=== PATIENT | male | born 1955 | race Caucasian/White ===

== ENCOUNTER 2022-07-09 11:10 | Inpatient (IN) | payer BC, MEDICARE ==
[2022-07-09 11:30] LABS: Glucose,Whole Blood >600 mg/dL (70-110)
[2022-07-09] MEDS ORDERED: SODIUM CHLORIDE 0.9% 1,000 ML IV ONE ×2 (11:31→12:59)
[2022-07-09 11:55] LABS: Basophils % (A) 0 %; Eosinophils % (A) 0 %; HCT 47.1 % (39.0-53.0); HGB 14.9 gm/dL (13.0-17.5); Hypochromasia Slight; Lymphocytes # (A) 0.7 k/uL (1.0-4.8); Lymphocytes % (A) 4 %; MCH 30.8 pg (25.0-35.0); MCHC 31.6 g/dL (31.0-37.0); MCV 97.5 fL (80.0-100.0); Mean Platelet Volume 10.1; Monocytes # (A) 0.8 k/uL (0-1.0); Monocytes % (A) 5 %; Neutrophils # (A) 15.8 k/uL (1.3-7.7); Neutrophils % (A) 91 %; Platelet Count 255 k/uL (150-450); RBC 4.83 m/uL (4.30-5.90); RDW 14.5 % (11.5-15.5); WBC 17.5 k/uL (3.8-10.6)
[2022-07-09 12:18] LABS: ALT 25 U/L (4-49); African American GFR (CKD) 57 (>60 ml/min/1.73 sqM); Albumin 3.6 g/dL (3.5-5.0); Anion Gap 28 mmol/L; Blood Urea Nitrogen 43 mg/dL (9-20); Calcium 9.5 mg/dL (8.4-10.2); Chloride 89 mmol/L (98-107); Non-African American GFR(CKD) 49 (>60 ml/min/1.73 sqM); Sodium 125 mmol/L (137-145); Total Bilirubin 1.4 mg/dL (0.2-1.3); Total Protein 6.7 g/dL (6.3-8.2)
[2022-07-09 12:50] LABS: Carbon Dioxide 8 mmol/L (22-30); Glucose 754 mg/dL (74-99)
[2022-07-09 12:51] LABS: AST 29 U/L (17-59); Alkaline Phosphatase 136 U/L (38-126); Potassium 5.6 mmol/L (3.5-5.1)
[2022-07-09] MEDS ORDERED: VANCOMYCIN IV PER PHARMACY 1 EACH MISC MISCELLANE PRN (12:59)
[2022-07-09] MEDS: SODIUM CHLORIDE 0.9% 1,000 ML IV SCH ×3 (13:00→21:08)
--- NOTE | 2022-07-09 13:08 | ED ---
General Adult HPI - General Chief complaint: Skin/Abscess/Foreign Body Stated complaint: Bilateral feet infection Time Seen by Provider: 07/09/22 11:17 Source: patient, EMS, RN notes reviewed Mode of arrival: EMS Limitations: no limitations - History of Present Illness Initial comments: 67-year-old male presents emergency Department with chief complaint of bilateral foot and leg infection, redness. Patient states has been going on for several weeks increasing states that has had more increasing pain. The ambulance now at home. Patient states he moved here recently and does not have a current primary care physician has not been any medications. Patient states he does have a history of hypertension and diabetes. Patient states he noticed some drainage, sore throat been on his feet denies any known fever or chills no abdominal pain no chest pain or shortness breath. - Related Data Allergies Allergy/AdvReac Type Severity Reaction Status Date / Time No Known Allergies Allergy Verified 07/09/22 11:23 Review of Systems ROS Statement: Those systems with pertinent positive or pertinent negative responses have been documented in the HPI. ROS Other: All systems not noted in ROS Statement are negative. Past Medical History Past Medical History: Hypertension History of Any Multi-Drug Resistant Organisms: None Reported Past Surgical History: Orthopedic Surgery Additional Past Surgical History / Comment(s): hip replacement, cataracts Smoking Status: Never smoker Past Alcohol Use History: None Reported Past Drug Use History: None Reported General Exam Limitations: no limitations General appearance: alert, in no apparent distress, obese Head exam: Present: atraumatic, normocephalic, normal inspection Eye exam: Present: normal appearance, PERRL, EOMI. Absent: scleral icterus, conjunctival injection, periorbital swelling ENT exam: Present: normal exam, mucous membranes moist Neck exam: Present: normal inspection, full ROM. Absent: tenderness, meningismus, lymphadenopathy Respiratory exam: Present: normal lung sounds bilaterally. Absent: respiratory distress, wheezes, rales, rhonchi, stridor Cardiovascular Exam: Present: normal rhythm, tachycardia, normal heart sounds. Absent: systolic murmur, diastolic murmur, rubs, gallop, clicks GI/Abdominal exam: Present: soft, normal bowel sounds. Absent: distended, tenderness, guarding, rebound, rigid Extremities exam: Present: other (Bilateral lower extremities there are multiple areas of ulceration, skin sloughing, erythema worsening right mid calf region there is moderate left foot erythematous changes) Skin exam: Present: warm, dry, intact, normal color. Absent: rash Course Vital Signs 07/09/22 11:18 Temperature 98.3 F Pulse Rate 116 H Respiratory 22 Rate Blood Pressure 131/90 O2 Sat by Pulse 97 Oximetry Procedures - Sepsis Sepsis Focused Exam #1 Time Sepsis Criteria Met: 13:05 Sepsis Focused Exam Date: 07/09/22 Sepsis Focused Exam Time: 13:10 Sepsis Focused Exam Complete: Yes Vital Signs & RN Notes Reviewed: Yes Capillary Refill: < 2 Seconds: Fingers, Toes Peripheral Pulses: Normal: Radial (R), Radial (L), Posterior Tibialis (R), Posterior Tibialis (L), Dorsalis Pedis (R), Dorsalis Pedis (L) Skin Color: Normal for Patient, Erythema (Erythema of the lower extremities) Respiratory Exam: normal lung sounds Cardiovascular Exam: tachycardia Medical Decision Making - Medical Decision Making 67-year-old presented for bilateral foot wound, and traction patient found to be hyperglycemic with blood sugar 754. Patient has anion gap of 28 carbon dioxide 8. Patient was started on fluid bolus given 2 L, maintenance fluids, IV insulin. Patient does have moderate hyponatremia, hyperkalemia related to his diabetes. Patient's lactic acid significantly elevated 6.7 a week, nation from infection and current hyperglycemia a steroid state. Patient started on broad- spectrum antibiotics, blood cultures were drawn - Lab Data Result diagrams: 07/09/22 11:33 07/09/22 11:33 Lab Results 07/09/22 07/09/22 07/09/22 Range/Units 11:28 11:33 11:33 WBC 17.5 H (3.8-10.6) k/uL RBC 4.83 (4.30-5.90) m/uL Hgb 14.9 (13.0-17.5) gm/dL Hct 47.1 (39.0-53.0) % MCV 97.5 (80.0-100.0) fL MCH 30.8 (25.0-35.0) pg MCHC 31.6 (31.0-37.0) g/dL RDW 14.5 (11.5-15.5) % Plt Count 255 (150-450) k/uL MPV 10.1 Neutrophils % 91 % Lymphocytes % 4 % Monocytes % 5 % Eosinophils % 0 % Basophils % 0 % Neutrophils # 15.8 H (1.3-7.7) k/uL Lymphocytes # 0.7 L (1.0-4.8) k/uL Monocytes # 0.8 (0-1.0) k/uL Eosinophils # 0.0 (0-0.7) k/uL Basophils # 0.0 (0-0.2) k/uL Hypochromasia Slight Sodium 125 L (137-145) mmol/L Potassium 5.6 H (3.5-5.1) mmol/L Chloride 89 L (98-107) mmol/L Carbon Dioxide 8 L* (22-30) mmol/L Anion Gap 28 mmol/L BUN 43 H (9-20) mg/dL Creatinine 1.46 H (0.66-1.25) mg/dL Est GFR (CKD-EPI)AfAm 57 (>60 ml/min/1.73 sqM) Est GFR (CKD-EPI)NonAf 49 (>60 ml/min/1.73 sqM) Glucose 754 H* (74-99) mg/dL POC Glucose (mg/dL) >600 H (70-110) mg/dL POC Glu Rn Endocrinology ID Fely Hubbard Plasma Lactic Acid Clint (0.7-2.0) mmol/L Calcium 9.5 (8.4-10.2) mg/dL Total Bilirubin 1.4 H (0.2-1.3) mg/dL AST 29 (17-59) U/L ALT 25 (4-49) U/L Alkaline Phosphatase 136 H (38-126) U/L Total Protein 6.7 (6.3-8.2) g/dL Albumin 3.6 (3.5-5.0) g/dL Acetone, Qual Positive (Negative) 07/09/22 Range/Units 11:33 WBC (3.8-10.6) k/uL RBC (4.30-5.90) m/uL Hgb (13.0-17.5) gm/dL Hct (39.0-53.0) % MCV (80.0-100.0) fL MCH (25.0-35.0) pg MCHC (31.0-37.0) g/dL RDW (11.5-15.5) % Plt Count (150-450) k/uL MPV Neutrophils % % Lymphocytes % % Monocytes % % Eosinophils % % Basophils % % Neutrophils # (1.3-7.7) k/uL Lymphocytes # (1.0-4.8) k/uL Monocytes # (0-1.0) k/uL Eosinophils # (0-0.7) k/uL Basophils # (0-0.2) k/uL Hypochromasia Sodium (137-145) mmol/L Potassium (3.5-5.1) mmol/L Chloride (98-107) mmol/L Carbon Dioxide (22-30) mmol/L Anion Gap mmol/L BUN (9-20) mg/dL Creatinine (0.66-1.25) mg/dL Est GFR (CKD-EPI)AfAm (>60 ml/min/1.73 sqM) Est GFR (CKD-EPI)NonAf (>60 ml/min/1.73 sqM) Glucose (74-99) mg/dL POC Glucose (mg/dL) (70-110) mg/dL POC Glu Rn Endocrinology ID Plasma Lactic Acid Clint 6.7 H* (0.7-2.0) mmol/L Calcium (8.4-10.2) mg/dL Total Bilirubin (0.2-1.3) mg/dL AST (17-59) U/L ALT (4-49) U/L Alkaline Phosphatase (38-126) U/L Total Protein (6.3-8.2) g/dL Albumin (3.5-5.0) g/dL Acetone, Qual (Negative) Critical Care Time Critical Care Time: Yes Total Critical Care Time: 35 Disposition Clinical Impression: DKA (diabetic ketoacidosis), Uncontrolled diabetes mellitus, Bilateral lower leg cellulitis, Diabetic ulcer of both feet, Hyperkalemia Disposition: ADMITTED IP TO THIS [facility] Condition: Poor Referrals: None,Stated [Primary Care Provider] - 1-2 days Time of Disposition: 13:08
[2022-07-09] MEDS ORDERED: PIPERACILLIN-TAZOBACTAM 3.375 GM in SODIUM CHLORIDE 0.9% 100 ML IVPB ONE (13:15)
[2022-07-09] MEDS ORDERED: VANCOMYCIN 1,500 MG in SODIUM CHLORIDE 0.9% 250 ML IVPB ONE (13:30)
[2022-07-09 13:57] LABS: Appearance,Urine Clear (Clear); Bilirubin,Urine Negative (Negative); Blood,Urine Small (Negative); Color,Urine Light Yellow; Glucose,Urine (UA) 4+ (Negative); Hyaline Casts,Urine 1 /lpf (0-2); Leukocyte Esterase,Urine Negative (Negative); Mucus,Urine Rare /hpf; Nitrite,Urine Negative (Negative); Protein,Urine Negative (Negative); RBC,Urine 2 /hpf (0-5); Specific Gravity,Urine 1.025 (1.001-1.035); Urobilinogen,Urine <2.0 mg/dL (<2.0); WBC,Urine 1 /hpf (0-5)
[2022-07-09] MEDS: INSULIN REGULAR 100 UNIT in SODIUM CHLORIDE 0.9% 100 ML IV SCH ×2 (14:03→23:03)
[2022-07-09 14:04] LABS: Ketones,Urine 2+ (Negative)
--- NOTE | 2022-07-09 15:16 | P.GSCN ---
History of Present Illness Consult date: 07/09/22 Reason for Consult: Bilateral lower extremity wounds, cellulitis Requesting physician: Nicola Wu History of present illness: This is a 67-year-old male who presented to the emergency department this afternoon with complaints of lower extremity swelling and redness with bilateral foot wounds. He denies any past medical history. Denies any previous history of diabetes, states he's a nonsmoker. States he had swelling in his lower extremities for the last 1 month's duration, and started noticing redness and wo unds within the last 2 weeks. He denies any fevers or chills. He states he came in because he got to the point where he could not walk any. On admission patient was found to have elevated WBC 17.5 hemoglobin 14.9, platelet count 255,000 sodium 125 potassium 5.6 chloride 89 CO2 8 BUN 43 creatinine 1.46 glucose 754 lactic acid 6.7 with positive acetone. Patient denies any shortness of breath or chest pain. Past Medical History Past Medical History: Hypertension History of Any Multi-Drug Resistant Organisms: None Reported Past Surgical History: Orthopedic Surgery Additional Past Surgical History / Comment(s): hip replacement, cataracts Smoking Status: Never smoker Past Alcohol Use History: None Reported Past Drug Use History: None Reported Medications and Allergies Home Medications Medication Instructions Recorded Confirmed Type No Known Home Medications 07/09/22 07/09/22 History Allergies Allergy/AdvReac Type Severity Reaction Status Date / Time No Known Allergies Allergy Verified 07/09/22 13:51 Surgical - Exam Vital Signs Temp Pulse Resp BP Pulse Ox 98.3 F 116 H 22 131/90 97 07/09/22 11:18 07/09/22 11:18 07/09/22 11:18 07/09/22 11:18 07/09/22 11:18 General appearance: The patient is alert, oriented, appears in no acute distress. HET: Head is normocephalic and atraumatic. Pupils are equal and reactive. Neck: Supple without lymphadenopathy. Trachea midline. No audible carotid bruit. Heart: S1 S2. Regular rate and rhythm. Lungs: Clear to auscultation bilaterally. Abdomen: Soft, nontender, nondistended. Extremities: Bilateral lower extremity edema, redness up to patient's rivas bilaterally. Dorsal aspect of right foot with wound with nonviable tissue. Soft tissue on right foot. Left foot with ulcer on the dorsal aspect with slough tissue and purulent drainage. Multiple small superficial wounds on bilateral feet. Patient is able to move bilateral lower feet and toes. Palpable bilateral femoral pulses, multiphasic popliteal, posterior tibialis and dorsalis pedis signals. Neurological: No focal deficits. Strength and sensation are grossly intact. Results - Labs 07/09/22 11:33 07/09/22 11:33 Abnormal Lab Results - Last 24 Hours (Table) 07/09/22 07/09/22 07/09/22 Range/Units 11:28 11:33 11:33 WBC 17.5 H (3.8-10.6) k/uL Neutrophils # 15.8 H (1.3-7.7) k/uL Lymphocytes # 0.7 L (1.0-4.8) k/uL Sodium (137-145) mmol/L Potassium (3.5-5.1) mmol/L Chloride (98-107) mmol/L Carbon Dioxide (22-30) mmol/L BUN (9-20) mg/dL Creatinine (0.66-1.25) mg/dL Glucose (74-99) mg/dL POC Glucose (mg/dL) >600 H (70-110) mg/dL Plasma Lactic Acid Clint (0.7-2.0) mmol/L Total Bilirubin (0.2-1.3) mg/dL Alkaline Phosphatase (38-126) U/L Urine Glucose (UA) 4+ H (Negative) Urine Ketones 2+ H (Negative) Urine Blood Small H (Negative) Urine Mucus Rare H (None) /hpf 07/09/22 07/09/22 Range/Units 11:33 11:33 WBC (3.8-10.6) k/uL Neutrophils # (1.3-7.7) k/uL Lymphocytes # (1.0-4.8) k/uL Sodium 125 L (137-145) mmol/L Potassium 5.6 H (3.5-5.1) mmol/L Chloride 89 L (98-107) mmol/L Carbon Dioxide 8 L* (22-30) mmol/L BUN 43 H (9-20) mg/dL Creatinine 1.46 H (0.66-1.25) mg/dL Glucose 754 H* (74-99) mg/dL POC Glucose (mg/dL) (70-110) mg/dL Plasma Lactic Acid Clint 6.7 H* (0.7-2.0) mmol/L Total Bilirubin 1.4 H (0.2-1.3) mg/dL Alkaline Phosphatase 136 H (38-126) U/L Urine Glucose (UA) (Negative) Urine Ketones (Negative) Urine Blood (Negative) Urine Mucus (None) /hpf Diabetes panel 07/09/22 Range/Units 11:33 Sodium 125 L (137-145) mmol/L Potassium 5.6 H (3.5-5.1) mmol/L Chloride 89 L (98-107) mmol/L Carbon Dioxide 8 L* (22-30) mmol/L BUN 43 H (9-20) mg/dL Creatinine 1.46 H (0.66-1.25) mg/dL Glucose 754 H* (74-99) mg/dL Calcium 9.5 (8.4-10.2) mg/dL AST 29 (17-59) U/L ALT 25 (4-49) U/L Alkaline Phosphatase 136 H (38-126) U/L Total Protein 6.7 (6.3-8.2) g/dL Albumin 3.6 (3.5-5.0) g/dL Calcium panel 07/09/22 Range/Units 11:33 Calcium 9.5 (8.4-10.2) mg/dL Albumin 3.6 (3.5-5.0) g/dL Pituitary panel 07/09/22 Range/Units 11:33 Sodium 125 L (137-145) mmol/L Potassium 5.6 H (3.5-5.1) mmol/L Chloride 89 L (98-107) mmol/L Carbon Dioxide 8 L* (22-30) mmol/L BUN 43 H (9-20) mg/dL Creatinine 1.46 H (0.66-1.25) mg/dL Glucose 754 H* (74-99) mg/dL Calcium 9.5 (8.4-10.2) mg/dL Adrenal panel 07/09/22 Range/Units 11:33 Sodium 125 L (137-145) mmol/L Potassium 5.6 H (3.5-5.1) mmol/L Chloride 89 L (98-107) mmol/L Carbon Dioxide 8 L* (22-30) mmol/L BUN 43 H (9-20) mg/dL Creatinine 1.46 H (0.66-1.25) mg/dL Glucose 754 H* (74-99) mg/dL Calcium 9.5 (8.4-10.2) mg/dL Total Bilirubin 1.4 H (0.2-1.3) mg/dL AST 29 (17-59) U/L ALT 25 (4-49) U/L Alkaline Phosphatase 136 H (38-126) U/L Total Protein 6.7 (6.3-8.2) g/dL Albumin 3.6 (3.5-5.0) g/dL - Imaging Comments: Foot x-ray pending Assessment and Plan Assessment: 1. Bilateral lower extremity cellulitis with diabetic ulcers 2. Bilateral lower extremity edema 3. Diabetic ketoacidosis 4. Hyponatremia 5. Hyperkalemia 6. Acute kidney injury Plan: 1. Will obtain arterial ultrasound bilateral lower extremities 2. Culture wounds bilateral feet 3. Recommend consult infectious disease for antibiotic recommendations 4. Further recommendations forthcoming per vascular surgeon Thank you for this consultation, we will continue to follow The impression and plan of care has been dictated as directed. I performed a history and examination of this patient, discussed the same with the dictator. I agree with the dictator's note ,documented as a scribe. Any additional findings or plans will be noted.
[2022-07-09 15:19] LABS: Glucose,Whole Blood 543 mg/dL (70-110)
[2022-07-09] MEDS ORDERED: NALOXONE 0.4 MG/ML 1 ML VIAL IV PRN (15:36)
[2022-07-09] MEDS ORDERED: ACETAMINOPHEN TAB 325 MG TAB PO PRN (15:37)
[2022-07-09] MEDS ORDERED: ONDANSETRON 4 MG/2 ML VIAL IVP PRN (15:37)
[2022-07-09] MEDS ORDERED: MELATONIN 3 MG TABLET PO PRN (15:37)
[2022-07-09] MEDS ORDERED: MORPHINE SULFATE 4 MG/ML SYRINGE IVP PRN (15:37)
[2022-07-09] MEDS ORDERED: Magnesium Replacement Protocol 1 EACH MISC MISCELLANE PRN (15:38)
[2022-07-09] MEDS ORDERED: Potassium Replacement Protocol 1 EACH MISC MISCELLANE PRN (15:38)
--- NOTE | 2022-07-09 15:44 | P.HPIM ---
History of Present Illness H&P Date: 07/09/22 Chief Complaint: b/l LE redness Patient is a 67-year-old male who does not frequently follow-up with physicians with a history of hypertension, borderline dyslipidemia, and osteoarthritis who presented to the ER with complaints of bilateral lower extremity redness. The ER he underwent an extensive evaluation. On arrival he was slightly tachycardic. He underwent an extensive laboratory evaluation which was normal for white count of 75, sodium 125, potassium 5.6, chloride 89, carbon dioxide 8, anion gap 28, BUN 43, creatinine 1.46, blood glucose 754, lactic acid 6.7. Urinalysis showed 2+ ketones and was acetone positive. He was started on IV fluids, antibiotics, and in insulin drip. Patient seen and examined at bedside. He reports that approximately one month ago he noted lower extremity swelling. He then noticed this to proceed to get worse and noticed weeping from his skin. On June 27 he went to a family reunion out of [facility]. He states during that time he did not remove his socks or shoes. Upon return to [place] on 07/02 he took off his socks and shoes and noted redness with skin sloughing. Since that time he has been self treating with hot baths. He reports no history of peripheral arterial or venous disease. He also had no known history of diabetes. However his last known follow-up with the physician was in 2019, but his last set of blood work was probably 2017. He denies any overt pain and less he strikes his foot inadvertently. He is unsure if he has decreased feeling. He denies any new weakness. He states that last week he has had a poor appetite but before that his appetite was normal. He does report excessive thirst and water intake as well as urination. He denies any recent cough, cold, fever, flu. Pertinent positives and negatives as discussed in HPI, a complete review of systems was performed and all other systems are negative. Vital signs reviewed General: nontoxic, no distress, appears at stated age Derm: Right lower extremity with erythema extending from the toes to just below the knee associated with edema, skin sloughing, and multiple areas of ulceration of which show purulent drainage, toes appear dusky. Left lower extremity with erythema from tip of the toes to ankle which also shows diffuse erythema with skin sloughing and ulcerations as well as a blister over dorsalis pedis. Dopplerable dorsalis pedis pulses bilateral. Head: atraumatic, normocephalic, symmetric Eyes: EOMI, no lid lag, anicteric sclera, pupils equal round reactive to light ENT: Nose and ears atraumatic, no thrush, no pharyngeal erythema Neck: No thyromegaly, no cervical lymphadenopathy, trachea midline, supple Mouth: no lip lesion, mucus membranes dry Cardiovascular: S1S2 reg,+ grade 2 systolic murmur, capillary refill > 2 seconds Lungs: clear to auscultation bilateral, no rhonchi, no rales, no wheeze, no accessory muscle use Abdominal: soft, nontender to palpation, no guarding, no appreciable organomegaly, normal bowel sounds Ext: no gross muscle atrophy, muscle strengthgrossly intact all 4 extremities, no contractures Neuro: CN II-XII grossly intact, light touch intact all 4 extremities, finger to nose within normal limits, Psych: Alert, oriented, appropriate affect Assessment/Plan: DKA - IV fluids - inslun gtt - DKA protocolol - admit to ICU, D/W Dr. Fulton - follow BS and lytes per protocol -check A1C. Bilateral lower extremity cellulitis with ulceration and severe sepsis Suspect peripheral arterial disease -Check cultures -Continue with vancomycin and Unasyn -Consult ID -Consult vascular surgery. Notified Dr. Little - MARGARETH Pseudo-hyponatremia -Corrected sodium is 135 -Follow sodium levels Hyperkalemia -Likely secondary to shifting from severe DKA -Continue with IV fluids -Continue to monitor Lactic acid 6.7 possibly secondary to sepsis versus contraction from DKA -IV fluids -Follow lactic acid Acute kidney injury versus chronic kidney disease -IV fluids -Avoid nephrotoxic agents -Follow creatinine -Renal ultrasound HTN hx - follow BP The patient is admitted with an anticipated greater than 2 midnight stay for evaluation of DKA, cellulitis with severe sepsis Surrogate decision-maker: [Brother] CODE STATUS:Full DVT prophylaxis: Lovenox Discussed with: Patient, nursing, ED physician, Vascular surgery Anticipated discharge date: pending clinical course Anticipated discharge place: pending clinical course A total of 75 minutes was spent on the care of this complex patient more than 50% of the time was spent in counseling and care coordination. Past Medical History Past Medical History: Hypertension Additional Past Medical History / Comment(s): borderline cholesterol History of Any Multi-Drug Resistant Organisms: None Reported Past Surgical History: Orthopedic Surgery Additional Past Surgical History / Comment(s): hip replacement left, cataracts, surgery as a child right leg Smoking Status: Never smoker Past Alcohol Use History: None Reported Past Drug Use History: None Reported - Past Family History family Additional Family Medical History / Comment(s): No family hx of diabetes Medications and Allergies Home Medications Medication Instructions Recorded Confirmed Type No Known Home Medications 07/09/22 07/09/22 History Allergies Allergy/AdvReac Type Severity Reaction Status Date / Time No Known Allergies Allergy Verified 07/09/22 13:51 Physical Exam Osteopathic Statement: *. No significant issues noted on an osteopathic structural exam other than those noted in the History and Physical/Consult. Vitals: Vital Signs Temp Pulse Resp BP Pulse Ox 07/09/22 11:18 98.3 F 116 H 22 131/90 97 Intake and Output 07/09/22 07/09/22 07/09/22 06:59 14:59 22:59 Other: Weight 85.729 kg Results CBC & Chem 7: 07/09/22 11:33 07/09/22 11:33 Labs: Abnormal Lab Results - Last 24 Hours (Table) 07/09/22 07/09/22 07/09/22 Range/Units 11:28 11:33 11:33 WBC 17.5 H (3.8-10.6) k/uL Neutrophils # 15.8 H (1.3-7.7) k/uL Lymphocytes # 0.7 L (1.0-4.8) k/uL Sodium (137-145) mmol/L Potassium (3.5-5.1) mmol/L Chloride (98-107) mmol/L Carbon Dioxide (22-30) mmol/L BUN (9-20) mg/dL Creatinine (0.66-1.25) mg/dL Glucose (74-99) mg/dL POC Glucose (mg/dL) >600 H (70-110) mg/dL Plasma Lactic Acid Clint (0.7-2.0) mmol/L Total Bilirubin (0.2-1.3) mg/dL Alkaline Phosphatase (38-126) U/L Urine Glucose (UA) 4+ H (Negative) Urine Ketones 2+ H (Negative) Urine Blood Small H (Negative) Urine Mucus Rare H (None) /hpf 07/09/22 07/09/22 07/09/22 Range/Units 11:33 11:33 15:17 WBC (3.8-10.6) k/uL Neutrophils # (1.3-7.7) k/uL Lymphocytes # (1.0-4.8) k/uL Sodium 125 L (137-145) mmol/L Potassium 5.6 H (3.5-5.1) mmol/L Chloride 89 L (98-107) mmol/L Carbon Dioxide 8 L* (22-30) mmol/L BUN 43 H (9-20) mg/dL Creatinine 1.46 H (0.66-1.25) mg/dL Glucose 754 H* (74-99) mg/dL POC Glucose (mg/dL) 543 H (70-110) mg/dL Plasma Lactic Acid Clint 6.7 H* (0.7-2.0) mmol/L Total Bilirubin 1.4 H (0.2-1.3) mg/dL Alkaline Phosphatase 136 H (38-126) U/L Urine Glucose (UA) (Negative) Urine Ketones (Negative) Urine Blood (Negative) Urine Mucus (None) /hpf
[2022-07-09 16:34] LABS: Glucose,Whole Blood 397 mg/dL (70-110)
--- NOTE | 2022-07-09 16:42 | P.CNPUL ---
History of Present Illness Consult date: 07/09/22 Requesting physician: Nicola Wu Chief complaint: Bilateral leg wounds, DKA History of present illness: This is 67-year-old male patient who moved to this area from [place] a year ago in July, however has not established himself with the primary care physician, patient states has no medical problems, and he is not on any medications. He came into the emergency department on 07/09/2022 for evaluation of extensive redness, swelling and pain in bilateral lower extremities. Patient states this pain going on for several weeks. However in the emergency department patient stated that he does have a history of hypertension and diabetes during initial evaluation when interviewed by the ER provider. Does not take any medications normally. He states he had a recent trip to [place] for family reunion, he drove his car, and he did not take his socks or shoes for 2-3 days. When he did finally take him off he knows that they were significantly swollen, red, with Diffuse inflammation, sloughing skin. They have been draining fluid. Patient also noticed that his been increasingly thirsty and he has been drinking a lot of water, he denied any fever or chills. No difficulty breathing, no chest pain. No nausea or vomiting. His labs revealed leukocytosis with white blood cell count of 17.5, hemoglobin of 14.9, his serum glucose was 754, serum acetone was positive, lactic acid of 6.7. CO2 was 8, serum sodium was 125, potassium is 5.6, chloride is 89. Urinalysis showed 4+ glucose, 2+ ketones small amount of blood, no definite urinary tract infection. Patient was started on IV fluids, insulin infusion, antibiotics including Unasyn, vancomycin, x-ray of the foot has been ordered and pending, infectious disease, and vasc surgery has been consulted. Review of Systems All systems: negative Constitutional: Denies chills, Denies fever Eyes: denies blurred vision, denies pain Ears, nose, mouth and throat: Denies headache, Denies sore throat Cardiovascular: Denies chest pain, Denies shortness of breath Respiratory: Denies cough Gastrointestinal: Denies abdominal pain, Denies diarrhea, Denies nausea, Denies vomiting Musculoskeletal: Denies myalgias Integumentary: Reports rash, Reports sores, Reports wounds, Denies pruritus Neurological: Denies numbness, Denies weakness Psychiatric: Denies anxiety, Denies depression Endocrine: Denies fatigue, Denies weight change Past Medical History Past Medical History: Hypertension Additional Past Medical History / Comment(s): borderline cholesterol History of Any Multi-Drug Resistant Organisms: None Reported Past Surgical History: Orthopedic Surgery Additional Past Surgical History / Comment(s): hip replacement left, cataracts, surgery as a child right leg Smoking Status: Never smoker Past Alcohol Use History: None Reported Past Drug Use History: None Reported - Past Family History family Additional Family Medical History / Comment(s): No family hx of diabetes Medications and Allergies Home Medications Medication Instructions Recorded Confirmed Type No Known Home Medications 07/09/22 07/09/22 History Allergies Allergy/AdvReac Type Severity Reaction Status Date / Time No Known Allergies Allergy Verified 07/09/22 13:51 Physical Exam Vitals: Vital Signs Temp Pulse Resp BP Pulse Ox 07/09/22 16:10 115 H 16 132/86 98 07/09/22 11:18 98.3 F 116 H 22 131/90 97 Intake and Output 07/09/22 07/09/22 07/09/22 06:59 14:59 22:59 Other: Weight 85.729 kg GENERAL EXAM: 67-year-old white male resting on a gurney in the emergency department awake and alert, oriented 3, breathing comfortably, does not appear to be in any acute distress HEAD: Normocephalic/atraumatic. EYES: Normal reaction of pupils, equal size. Conjunctiva pink, sclera white. NOSE: Clear with pink turbinates. THROAT: No erythema or exudates. NECK: No masses, no JVD, no thyroid enlargement, no adenopathy. CHEST: No chest wall deformity. Symmetrical expansion. LUNGS: Equal air entry with no crackles, wheeze, rhonchi or dullness. CVS: Regular rate and rhythm, normal S1 and S2, no gallops, no murmurs, no rubs ABDOMEN: Soft, nontender. No hepatosplenomegaly, normal bowel sounds, no guarding or rigidity. EXTREMITIES: No clubbing, no cyanosis, 2+ pulses and upper and lower e xtremities. Lower extremity edema, redness, diffuse inflammation, and sloughing of skin MUSCULOSKELETAL: Muscle strength and tone normal. SPINE: No scoliosis or deformity SKIN: No rashes CENTRAL NERVOUS SYSTEM: Alert and oriented -3. No focal deficits, tone is normal in all 4 extremities. PSYCHIATRIC: Alert and oriented -3. Appropriate affect. Intact judgment and insight. Results - Laboratory Findings CBC and BMP: 07/10/22 12:54 07/10/22 09:59 Abnormal lab findings: Abnormal Labs 07/09/22 07/09/22 07/09/22 11:28 11:33 11:33 WBC 17.5 H Neutrophils # 15.8 H Lymphocytes # 0.7 L Sodium Potassium Chloride Carbon Dioxide BUN Creatinine Glucose POC Glucose (mg/dL) >600 H Plasma Lactic Acid Clint Total Bilirubin Alkaline Phosphatase Urine Glucose (UA) 4+ H Urine Ketones 2+ H Urine Blood Small H Urine Mucus Rare H 07/09/22 07/09/22 07/09/22 11:33 11:33 15:17 WBC Neutrophils # Lymphocytes # Sodium 125 L Potassium 5.6 H Chloride 89 L Carbon Dioxide 8 L* BUN 43 H Creatinine 1.46 H Glucose 754 H* POC Glucose (mg/dL) 543 H Plasma Lactic Acid Clint 6.7 H* Total Bilirubin 1.4 H Alkaline Phosphatase 136 H Urine Glucose (UA) Urine Ketones Urine Blood Urine Mucus 07/09/22 15:30 WBC Neutrophils # Lymphocytes # Sodium Potassium Chloride Carbon Dioxide BUN Creatinine Glucose POC Glucose (mg/dL) Plasma Lactic Acid Clint 4.0 H* Total Bilirubin Alkaline Phosphatase Urine Glucose (UA) Urine Ketones Urine Blood Urine Mucus Assessment and Plan Plan: Assessment: #1. Acute diabetic ketoacidosis, new onset diabetes or possibly noncompliant diabetic #2. Extensive cellulitis involving bilateral lower extremities #3. Acute kidney injury #4. Hyponatremia, related to dehydration #5. Lactic acidosis #6. Nonsmoker #7. Hypertension #8. History of osteoarthritis with previous history of hip replacement #9. History of cataracts #10. Obesity with BMI 34.6 kg/m Plan: Continue IV fluids and insulin infusion per DKA protocol Patient was started on antibiotics and ID service has been consulted Patient was mildly tachycardic, blood pressure is stable, patient is awake and alert Vascular surgery has been consulted Patient will be transferred to the intensive care unit for close monitoring and management Recheck electrolytes and renal profile every 4 hours per DKA protocol Blood cultures have been sent, wound cultures have been ordered Lower extremity Dopplers, and x-ray of the bilateral feet pending Continue close monitoring in the ICU I have personally seen and examined the patient, performed the documentation and the assessment and plan as written. Number of minutes spent on the visit: [15] I have personally seen and examined the patient and reviewed the documentation. I performed a joint evaluation with the nurse practitioner in this evaluation was done more than 30 minutes. I fully agree with the documentation above and the plan of care. The patient is seen in the emergency department. The patient was in DKA and the patient was also noted to have cellulitis and chronic wounds of a status and lower extremity is bilaterally mainly involving the feet and ankle area. The patient was started on broad-spectrum antibiotics and the patient was started on DKA protocol. The patient will be transferred to the intensive care unit. We'll consulted vascular surgery and infectious disease for treatment of cellulitis and wound debridement. We'll continue to follow. Time with Patient: Greater than 30
[2022-07-09 17:00] LABS: VBG PH 7.27 (7.31-7.41)
[2022-07-09 17:05] LABS: Phosphorus 2.7 mg/dL (2.5-4.5); Potassium 4.2 mmol/L (3.5-5.1)
[2022-07-09 17:36] LABS: Glucose,Whole Blood 373 mg/dL (70-110)
[2022-07-09] MEDS: AMPICILLIN-SULBACTAM 3 GM in SODIUM CHLORIDE 0.9% 100 ML IVPB SCH (18:47)
[2022-07-09 19:15] LABS: Glucose,Whole Blood 320 mg/dL (70-110)
[2022-07-09 19:16] LABS: Phosphorus 2.3 mg/dL (2.5-4.5); Potassium 4.2 mmol/L (3.5-5.1)
[2022-07-09 20:05] LABS: Glucose,Whole Blood 225 mg/dL (70-110)
[2022-07-09] MEDS: D5-0.45% NACL WITH KCL 20MEQ/L 1,000 ML IV SCH (21:06)
[2022-07-09 21:12] LABS: Glucose,Whole Blood 265 mg/dL (70-110)
[2022-07-09 22:10] LABS: Glucose,Whole Blood 145 mg/dL (70-110)
[2022-07-09 22:14] LABS: Calcium 8.5 mg/dL (8.4-10.2); Phosphorus 1.9 mg/dL (2.5-4.5)
[2022-07-09 23:02] LABS: Glucose,Whole Blood 133 mg/dL (70-110)
[2022-07-09] MEDS: SODIUM PHOSPHATE 10 MMOL in SODIUM CHLORIDE 0.9% 250 ML IVPB SCH (23:18)
[2022-07-10] MEDS ORDERED: PIPERACILLIN-TAZOBACTAM 3.375 GM in SODIUM CHLORIDE 0.9% 100 ML IVPB SCH ×2
[2022-07-10 00:07] LABS: Glucose,Whole Blood 155 mg/dL (70-110)
[2022-07-10 01:09] LABS: Glucose,Whole Blood 183 mg/dL (70-110)
[2022-07-10] MEDS: AMPICILLIN-SULBACTAM 3 GM in SODIUM CHLORIDE 0.9% 100 ML IVPB SCH ×4 (01:12→23:05)
[2022-07-10 01:40] LABS: African American GFR (CKD) >90 (>60 ml/min/1.73 sqM); Anion Gap 9 mmol/L; Blood Urea Nitrogen 36 mg/dL (9-20); Calcium 8.2 mg/dL (8.4-10.2); Carbon Dioxide 21 mmol/L (22-30); Chloride 99 mmol/L (98-107); Glucose 157 mg/dL (74-99); Non-African American GFR(CKD) 82 (>60 ml/min/1.73 sqM); Potassium 4.2 mmol/L (3.5-5.1); Sodium 129 mmol/L (137-145)
[2022-07-10] MEDS: SODIUM PHOSPHATE 10 MMOL in SODIUM CHLORIDE 0.9% 250 ML IVPB SCH (01:56)
[2022-07-10] MEDS ORDERED: INSULIN DETEMIR (LEVEMIR) 100 UNIT/ML SYR SQ SCH ×2 (02:16→21:00)
[2022-07-10 02:31] LABS: Glucose,Whole Blood 208 mg/dL (70-110)
[2022-07-10] MEDS: D5-0.45% NACL WITH KCL 20MEQ/L 1,000 ML IV SCH (06:58)
[2022-07-10 06:59] LABS: Glucose,Whole Blood 211 mg/dL (70-110)
[2022-07-10] MEDS: INSULIN ASPART (NovoLOG) 100 UNIT/ML VIAL SQ SCH ×7 (07:02→23:04)
[2022-07-10] MEDS ORDERED: VANCOMYCIN 1,500 MG in SODIUM CHLORIDE 0.9% 250 ML IVPB SCH (08:00)
[2022-07-10] MEDS: ENOXAPARIN 40 MG/0.4 ML SYRINGE SQ SCH (08:16)
--- NOTE | 2022-07-10 10:32 | P.PN ---
Subjective Progress Note Date: 07/10/22 Principal diagnosis: Lower extremity cellulitis, diabetic ulcers Patient is seen and examined today as a follow-up. He was admitted to the ICU for diabetic ketoacidosis and started on an insulin drip. He was started on vancomycin and Unasyn yesterday. He's been afebrile. States lower extremities still somewhat painful. It sugar has improved today, 157 this morning. Lactic acid improved 1.5. Yesterday he underwent arterial ultrasound of bilateral lower extremities. MARGARETH upright 1.12, left 1.19 with good waveforms. Objective - Vital Signs Vital signs: Vital Signs Temp 99 F 07/10/22 08:00 Pulse 95 07/10/22 09:00 Resp 21 07/10/22 09:00 BP 118/62 07/10/22 09:00 Pulse Ox 93 L 07/10/22 09:00 FiO2 Intake & Output 07/09/22 07/10/22 07/10/22 18:59 06:59 18:59 Intake Total 850 2576.000 1050 Output Total 300 400 Balance 550 2176.000 1050 Weight 85.729 kg 90.2 kg Intake: IV 1875 600 Ampicillin-Sulbactam 3 gm 100 100 In Sodium Chloride 0.9% 100 ml @ 200 mls/hr IVPB Q8HR MICHAEL Rx#:[id number] D5-0.45% NaCl with KCl 1275 20Meq/l 1,000 ml @ 150 mls/hr IV .Q6H40M MICHAEL Rx# :[id number] Sodium Phosphate 10 mmol 500 In Sodium Chloride 0.9% 250 ml @ 125 mls/hr IVPB Q2H MICHAEL Rx#:[id number] Vancomycin 500 Intake, IV Titration 850 501.000 Amount Insulin Regular 100 unit 101.000 In Sodium Chloride 0.9% 100 ml @ 0.1 UNITS/KG/HR 8.659 mls/hr IV .[id number] MICHAEL Rx#:[id number] Sodium Chloride 0.9% 1, 600 400 000 ml @ 200 mls/hr IV . Q5H MICHAEL Rx#:[id number] Vancomycin 1,500 mg In 250 Sodium Chloride 0.9% 250 ml @ 125 mls/hr IVPB Q24H MICHAEL Rx#:[id number] Oral 200 450 Output: Urine 300 400 Other: Voiding Method Urinal Urinal - Exam General appearance: The patient is alert, oriented, appears in no acute distress. HET: Head is normocephalic and atraumatic. Pupils are equal and reactive. Neck: Supple without lymphadenopathy. Trachea midline. No audible carotid bruit. Heart: S1 S2. Regular rate and rhythm. Lungs: Clear to auscultation bilaterally. Abdomen: Soft, nontender, nondistended. Extremities: Bilateral lower extremity edema, redness up to patient's rivas bilaterally. Dorsal aspect of right foot with wound with nonviable tissue. Bilateral feet with slough skin. Left foot with ulcer on the dorsal aspect with slough tissue and purulent drainage. Multiple small superficial wounds on bilateral feet. Patient is able to move bilateral lower feet and toes. Palpable bilateral femoral pulses, multiphasic popliteal, posterior tibialis and dorsalis pedis signals. Neurological: No focal deficits. Strength and sensation are grossly intact. R - Labs CBC & Chem 7: 07/09/22 11:33 07/10/22 09:59 Labs: Abnormal Lab Results - Last 24 Hours (Table) 07/09/22 07/09/22 07/09/22 Range/Units 11:28 11:33 11:33 WBC 17.5 H (3.8-10.6) k/uL Neutrophils # 15.8 H (1.3-7.7) k/uL Lymphocytes # 0.7 L (1.0-4.8) k/uL VBG pH (7.31-7.41) VBG HCO3 (24-28) mmol/L Sodium (137-145) mmol/L Potassium (3.5-5.1) mmol/L Chloride (98-107) mmol/L Carbon Dioxide (22-30) mmol/L BUN (9-20) mg/dL Creatinine (0.66-1.25) mg/dL Glucose (74-99) mg/dL POC Glucose (mg/dL) >600 H (70-110) mg/dL Hemoglobin A1c (0.0-6.0) % Plasma Lactic Acid Clint (0.7-2.0) mmol/L Calcium (8.4-10.2) mg/dL Phosphorus (2.5-4.5) mg/dL Total Bilirubin (0.2-1.3) mg/dL Alkaline Phosphatase (38-126) U/L Urine Glucose (UA) 4+ H (Negative) Urine Ketones 2+ H (Negative) Urine Blood Small H (Negative) Urine Mucus Rare H (None) /hpf 07/09/22 07/09/22 07/09/22 Range/Units 11:33 11:33 11:33 WBC (3.8-10.6) k/uL Neutrophils # (1.3-7.7) k/uL Lymphocytes # (1.0-4.8) k/uL VBG pH (7.31-7.41) VBG HCO3 (24-28) mmol/L Sodium 125 L (137-145) mmol/L Potassium 5.6 H (3.5-5.1) mmol/L Chloride 89 L (98-107) mmol/L Carbon Dioxide 8 L* (22-30) mmol/L BUN 43 H (9-20) mg/dL Creatinine 1.46 H (0.66-1.25) mg/dL Glucose 754 H* (74-99) mg/dL POC Glucose (mg/dL) (70-110) mg/dL Hemoglobin A1c 14.1 H (0.0-6.0) % Plasma Lactic Acid Clint 6.7 H* (0.7-2.0) mmol/L Calcium (8.4-10.2) mg/dL Phosphorus (2.5-4.5) mg/dL Total Bilirubin 1.4 H (0.2-1.3) mg/dL Alkaline Phosphatase 136 H (38-126) U/L Urine Glucose (UA) (Negative) Urine Ketones (Negative) Urine Blood (Negative) Urine Mucus (None) /hpf 07/09/22 07/09/22 07/09/22 Range/Units 15:17 15:30 16:33 WBC (3.8-10.6) k/uL Neutrophils # (1.3-7.7) k/uL Lymphocytes # (1.0-4.8) k/uL VBG pH (7.31-7.41) VBG HCO3 (24-28) mmol/L Sodium (137-145) mmol/L Potassium (3.5-5.1) mmol/L Chloride (98-107) mmol/L Carbon Dioxide (22-30) mmol/L BUN (9-20) mg/dL Creatinine (0.66-1.25) mg/dL Glucose (74-99) mg/dL POC Glucose (mg/dL) 543 H 397 H (70-110) mg/dL Hemoglobin A1c (0.0-6.0) % Plasma Lactic Acid Clint 4.0 H* (0.7-2.0) mmol/L Calcium (8.4-10.2) mg/dL Phosphorus (2.5-4.5) mg/dL Total Bilirubin (0.2-1.3) mg/dL Alkaline Phosphatase (38-126) U/L Urine Glucose (UA) (Negative) Urine Ketones (Negative) Urine Blood (Negative) Urine Mucus (None) /hpf 07/09/22 07/09/22 07/09/22 Range/Units 16:43 16:43 17:35 WBC (3.8-10.6) k/uL Neutrophils # (1.3-7.7) k/uL Lymphocytes # (1.0-4.8) k/uL VBG pH 7.27 L (7.31-7.41) VBG HCO3 18 L (24-28) mmol/L Sodium 131 L (137-145) mmol/L Potassium (3.5-5.1) mmol/L Chloride 94 L (98-107) mmol/L Carbon Dioxide 15 L (22-30) mmol/L BUN 38 H (9-20) mg/dL Creatinine (0.66-1.25) mg/dL Glucose 342 H (74-99) mg/dL POC Glucose (mg/dL) 373 H (70-110) mg/dL Hemoglobin A1c (0.0-6.0) % Plasma Lactic Acid Clint (0.7-2.0) mmol/L Calcium (8.4-10.2) mg/dL Phosphorus (2.5-4.5) mg/dL Total Bilirubin (0.2-1.3) mg/dL Alkaline Phosphatase (38-126) U/L Urine Glucose (UA) (Negative) Urine Ketones (Negative) Urine Blood (Negative) Urine Mucus (None) /hpf 07/09/22 07/09/22 07/09/22 Range/Units 18:46 18:47 19:13 WBC (3.8-10.6) k/uL Neutrophils # (1.3-7.7) k/uL Lymphocytes # (1.0-4.8) k/uL VBG pH (7.31-7.41) VBG HCO3 (24-28) mmol/L Sodium 132 L (137-145) mmol/L Potassium (3.5-5.1) mmol/L Chloride 95 L (98-107) mmol/L Carbon Dioxide 18 L (22-30) mmol/L BUN 38 H (9-20) mg/dL Creatinine (0.66-1.25) mg/dL Glucose 200 H (74-99) mg/dL POC Glucose (mg/dL) 320 H (70-110) mg/dL Hemoglobin A1c (0.0-6.0) % Plasma Lactic Acid Clint 4.3 H* (0.7-2.0) mmol/L Calcium (8.4-10.2) mg/dL Phosphorus 2.3 L (2.5-4.5) mg/dL Total Bilirubin (0.2-1.3) mg/dL Alkaline Phosphatase (38-126) U/L Urine Glucose (UA) (Negative) Urine Ketones (Negative) Urine Blood (Negative) Urine Mucus (None) /hpf 07/09/22 07/09/22 07/09/22 Range/Units 20:03 21:11 21:48 WBC (3.8-10.6) k/uL Neutrophils # (1.3-7.7) k/uL Lymphocytes # (1.0-4.8) k/uL VBG pH (7.31-7.41) VBG HCO3 (24-28) mmol/L Sodium 131 L (137-145) mmol/L Potassium (3.5-5.1) mmol/L Chloride (98-107) mmol/L Carbon Dioxide (22-30) mmol/L BUN 38 H (9-20) mg/dL Creatinine (0.66-1.25) mg/dL Glucose 135 H (74-99) mg/dL POC Glucose (mg/dL) 225 H 265 H (70-110) mg/dL Hemoglobin A1c (0.0-6.0) % Plasma Lactic Acid Clint (0.7-2.0) mmol/L Calcium (8.4-10.2) mg/dL Phosphorus 1.9 L (2.5-4.5) mg/dL Total Bilirubin (0.2-1.3) mg/dL Alkaline Phosphatase (38-126) U/L Urine Glucose (UA) (Negative) Urine Ketones (Negative) Urine Blood (Negative) Urine Mucus (None) /hpf 07/09/22 07/09/22 07/09/22 Range/Units 21:48 22:07 22:59 WBC (3.8-10.6) k/uL Neutrophils # (1.3-7.7) k/uL Lymphocytes # (1.0-4.8) k/uL VBG pH (7.31-7.41) VBG HCO3 (24-28) mmol/L Sodium (137-145) mmol/L Potassium (3.5-5.1) mmol/L Chloride (98-107) mmol/L Carbon Dioxide (22-30) mmol/L BUN (9-20) mg/dL Creatinine (0.66-1.25) mg/dL Glucose (74-99) mg/dL POC Glucose (mg/dL) 145 H 133 H (70-110) mg/dL Hemoglobin A1c (0.0-6.0) % Plasma Lactic Acid Clint 3.0 H* (0.7-2.0) mmol/L Calcium (8.4-10.2) mg/dL Phosphorus (2.5-4.5) mg/dL Total Bilirubin (0.2-1.3) mg/dL Alkaline Phosphatase (38-126) U/L Urine Glucose (UA) (Negative) Urine Ketones (Negative) Urine Blood (Negative) Urine Mucus (None) /hpf 07/10/22 07/10/22 07/10/22 Range/Units 00:06 01:05 01:07 WBC (3.8-10.6) k/uL Neutrophils # (1.3-7.7) k/uL Lymphocytes # (1.0-4.8) k/uL VBG pH (7.31-7.41) VBG HCO3 (24-28) mmol/L Sodium 129 L (137-145) mmol/L Potassium (3.5-5.1) mmol/L Chloride (98-107) mmol/L Carbon Dioxide 21 L (22-30) mmol/L BUN 36 H (9-20) mg/dL Creatinine (0.66-1.25) mg/dL Glucose 157 H (74-99) mg/dL POC Glucose (mg/dL) 155 H 183 H (70-110) mg/dL Hemoglobin A1c (0.0-6.0) % Plasma Lactic Acid Clint (0.7-2.0) mmol/L Calcium 8.2 L (8.4-10.2) mg/dL Phosphorus (2.5-4.5) mg/dL Total Bilirubin (0.2-1.3) mg/dL Alkaline Phosphatase (38-126) U/L Urine Glucose (UA) (Negative) Urine Ketones (Negative) Urine Blood (Negative) Urine Mucus (None) /hpf 07/10/22 07/10/22 Range/Units 02:29 06:57 WBC (3.8-10.6) k/uL Neutrophils # (1.3-7.7) k/uL Lymphocytes # (1.0-4.8) k/uL VBG pH (7.31-7.41) VBG HCO3 (24-28) mmol/L Sodium (137-145) mmol/L Potassium (3.5-5.1) mmol/L Chloride (98-107) mmol/L Carbon Dioxide (22-30) mmol/L BUN (9-20) mg/dL Creatinine (0.66-1.25) mg/dL Glucose (74-99) mg/dL POC Glucose (mg/dL) 208 H 211 H (70-110) mg/dL Hemoglobin A1c (0.0-6.0) % Plasma Lactic Acid Clint (0.7-2.0) mmol/L Calcium (8.4-10.2) mg/dL Phosphorus (2.5-4.5) mg/dL Total Bilirubin (0.2-1.3) mg/dL Alkaline Phosphatase (38-126) U/L Urine Glucose (UA) (Negative) Urine Ketones (Negative) Urine Blood (Negative) Urine Mucus (None) /hpf Microbiology - Last 24 Hours (Table) 07/09/22 11:33 Gram Stain - Preliminary Foot - Left Wound Culture - Preliminary 07/09/22 11:33 Gram Stain - Preliminary Foot - Right Wound Culture - Preliminary Assessment and Plan Assessment: 1. Bilateral lower extremity cellulitis with diabetic ulcers 2. Venous insufficiency 3. Bilateral lower extremity edema 4. Diabetic ketoacidosis 5. Hyponatremia 6. Hyperkalemia 7. Acute kidney injury Plan: 1. Nothing by mouth after midnight 2. Await wound culture results 3. Continue with recommendations from infectious disease on antibiotics 4. Consult with wound care 5. Patient scheduled tomorrow to undergo bilateral lower extremity debridement with deep tissue wound cultures Thank you for this consultation, we will continue to follow The impression and plan of care has been dictated as directed. I performed a history and examination of this patient, discussed the same with the dictator. I agree with the dictator's note ,documented as a scribe. Any additional findings or plans will be noted.
[2022-07-10 10:35] LABS: African American GFR (CKD) >90 (>60 ml/min/1.73 sqM); Anion Gap 9 mmol/L; Blood Urea Nitrogen 31 mg/dL (9-20); Calcium 7.8 mg/dL (8.4-10.2); Carbon Dioxide 20 mmol/L (22-30); Chloride 101 mmol/L (98-107); Glucose 246 mg/dL (74-99); Non-African American GFR(CKD) >90 (>60 ml/min/1.73 sqM); Phosphorus 1.8 mg/dL (2.5-4.5); Potassium 3.4 mmol/L (3.5-5.1); Sodium 130 mmol/L (137-145)
[2022-07-10 11:20] VITALS: BMI 36.3
[2022-07-10 11:27] LABS: Glucose,Whole Blood 235 mg/dL (70-110)
[2022-07-10 13:19] LABS: HCT 35.6 % (39.0-53.0); HGB 12.1 gm/dL (13.0-17.5); MCH 31.5 pg (25.0-35.0); MCHC 33.9 g/dL (31.0-37.0); MCV 92.9 fL (80.0-100.0); Mean Platelet Volume 9.1; Platelet Count 167 k/uL (150-450); RBC 3.83 m/uL (4.30-5.90); RDW 14.3 % (11.5-15.5); WBC 19.1 k/uL (3.8-10.6)
--- NOTE | 2022-07-10 14:13 | P.PN ---
Subjective Progress Note Date: 07/10/22 On today's evaluation of 07/10/2022, the patient is doing well and the patient is stable. As mentioned, the patient was hospitalized for cellulitis of lower extremities, wounds of the lower extremities involving the feet and an acute DKA. The patient was transferred to the intensive care unit on insulin drip for blood sugar control based on our DKA protocol. The patient was also started on broad-spectrum antibiotics regarding cellulitis lower extremities. The patient remains on a combination of Unasyn and vancomycin. In terms of the DKA, the patient was treated with an insulin drip and the patient was switched to long- acting insulin with Levemir early this morning and the patient was given Levemir 15 units along with that he was given a sliding scale insulin coverage. This is a new onset diabetes mellitus. Anion gap is closed and the patient's most recent blood sugar is at 211 and the patient has a serum bicarb of 21 BUN of 36 creatinine of 0.97 and his sodium level of 129 and a potassium level of 4.2. The patient will be able to tolerate some oral intake today. At the same time, the patient is being evaluated by vascular surgeon and infectious disease regarding lower extremity cellulitis. He will obviously need debridement. Cultures were sent. 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 The patient is currently receiving wound care for now. Objective - Vital Signs Vital signs: Vital Signs Temp 98.6 F 07/10/22 13:00 Pulse 93 07/10/22 13:00 Resp 17 07/10/22 13:00 BP 118/68 07/10/22 13:00 Pulse Ox 97 07/10/22 13:00 FiO2 Intake & Output 07/09/22 07/10/22 07/10/22 18:59 06:59 18:59 Intake Total 850 2576.000 1300 Output Total 300 400 240 Balance 550 2176.000 1060 Weight 85.729 kg 90.2 kg 90.2 kg Intake: IV 1875 850 Ampicillin-Sulbactam 3 gm 100 100 In Sodium Chloride 0.9% 100 ml @ 200 mls/hr IVPB Q8HR [facility] Rx#:[id number] D5-0.45% NaCl with KCl 1275 20Meq/l 1,000 ml @ 150 mls/hr IV .[id number] [facility] Rx# :[id number] Sodium Phosphate 10 mmol 500 In Sodium Chloride 0.9% 250 ml @ 125 mls/hr IVPB Q2H [facility] Rx#:[id number] Vancomycin 750 Intake, IV Titration 850 501.000 Amount Insulin Regular 100 unit 101.000 In Sodium Chloride 0.9% 100 ml @ 0.1 UNITS/KG/HR 8.659 mls/hr IV .[id number] [facility] Rx#:[id number] Sodium Chloride 0.9% 1, 600 400 000 ml @ 200 mls/hr IV . Q5H [facility] Rx#:[id number] Vancomycin 1,500 mg In 250 Sodium Chloride 0.9% 250 ml @ 125 mls/hr IVPB Q24H [facility] Rx#:[id number] Oral 200 450 Output: Urine 300 400 240 Other: Voiding Method Urinal Urinal - Exam General appearance: The patient is alert, oriented, appears in no acute distress. The patient's breathing is nonlabored and the patient's Room air oxygen. Head exam was generally normal. There was no scleral icterus or corneal arcus. Mucous membranes were moist. HET: Head is normocephalic and atraumatic. Pupils are equal and reactive. Neck: Supple without lymphadenopathy. Trachea midline. No audible carotid bruit. Cardiac exam revealed the PMI to be normally situated and sized. The rhythm was regular and no extrasystoles were noted during several minutes of auscultation. The first and second heart sounds were normal and physiologic splitting of the second heart sound was noted. There were no murmurs, rubs, clicks, or gallops. Lungs were clear to auscultation and percussion, and with normal diaphragmatic excursion. No wheezes or rales were noted. Abdominal exam revealed normal bowel sounds. The abdomen was soft, non-tender, and without masses, organomegaly, or appreciable enlargement of the abdominal aorta. Extremities: Bilateral lower extremity edema, redness up to patient's rivas bilaterally. Dorsal aspect of right foot with wound with nonviable tissue. Bilateral feet with slough skin. Left foot with ulcer on the dorsal aspect with slough tissue and purulent drainage. Multiple small superficial wounds on bilateral feet. Patient is able to move bilateral lower feet and toes. Palpable bilateral femoral pulses, multiphasic popliteal, posterior tibialis and dorsalis pedis signals. Neurological: No focal deficits. Strength and sensation are grossly intact. - Labs CBC & Chem 7: 07/10/22 12:54 07/10/22 09:59 Labs: Abnormal Lab Results - Last 24 Hours (Table) 07/09/22 07/09/22 07/09/22 Range/Units 11:33 15:17 15:30 WBC (3.8-10.6) k/uL RBC (4.30-5.90) m/uL Hgb (13.0-17.5) gm/dL Hct (39.0-53.0) % VBG pH (7.31-7.41) VBG HCO3 (24-28) mmol/L Sodium (137-145) mmol/L Potassium (3.5-5.1) mmol/L Chloride (98-107) mmol/L Carbon Dioxide (22-30) mmol/L BUN (9-20) mg/dL Glucose (74-99) mg/dL POC Glucose (mg/dL) 543 H (70-110) mg/dL Hemoglobin A1c 14.1 H (0.0-6.0) % Plasma Lactic Acid Clint 4.0 H* (0.7-2.0) mmol/L Calcium (8.4-10.2) mg/dL Phosphorus (2.5-4.5) mg/dL 07/09/22 07/09/22 07/09/22 Range/Units 16:33 16:43 16:43 WBC (3.8-10.6) k/uL RBC (4.30-5.90) m/uL Hgb (13.0-17.5) gm/dL Hct (39.0-53.0) % VBG pH 7.27 L (7.31-7.41) VBG HCO3 18 L (24-28) mmol/L Sodium 131 L (137-145) mmol/L Potassium (3.5-5.1) mmol/L Chloride 94 L (98-107) mmol/L Carbon Dioxide 15 L (22-30) mmol/L BUN 38 H (9-20) mg/dL Glucose 342 H (74-99) mg/dL POC Glucose (mg/dL) 397 H (70-110) mg/dL Hemoglobin A1c (0.0-6.0) % Plasma Lactic Acid Clint (0.7-2.0) mmol/L Calcium (8.4-10.2) mg/dL Phosphorus (2.5-4.5) mg/dL 07/09/22 07/09/22 07/09/22 Range/Units 17:35 18:46 18:47 WBC (3.8-10.6) k/uL RBC (4.30-5.90) m/uL Hgb (13.0-17.5) gm/dL Hct (39.0-53.0) % VBG pH (7.31-7.41) VBG HCO3 (24-28) mmol/L Sodium 132 L (137-145) mmol/L Potassium (3.5-5.1) mmol/L Chloride 95 L (98-107) mmol/L Carbon Dioxide 18 L (22-30) mmol/L BUN 38 H (9-20) mg/dL Glucose 200 H (74-99) mg/dL POC Glucose (mg/dL) 373 H (70-110) mg/dL Hemoglobin A1c (0.0-6.0) % Plasma Lactic Acid Clint 4.3 H* (0.7-2.0) mmol/L Calcium (8.4-10.2) mg/dL Phosphorus 2.3 L (2.5-4.5) mg/dL 07/09/22 07/09/22 07/09/22 Range/Units 19:13 20:03 21:11 WBC (3.8-10.6) k/uL RBC (4.30-5.90) m/uL Hgb (13.0-17.5) gm/dL Hct (39.0-53.0) % VBG pH (7.31-7.41) VBG HCO3 (24-28) mmol/L Sodium (137-145) mmol/L Potassium (3.5-5.1) mmol/L Chloride (98-107) mmol/L Carbon Dioxide (22-30) mmol/L BUN (9-20) mg/dL Glucose (74-99) mg/dL POC Glucose (mg/dL) 320 H 225 H 265 H (70-110) mg/dL Hemoglobin A1c (0.0-6.0) % Plasma Lactic Acid Clint (0.7-2.0) mmol/L Calcium (8.4-10.2) mg/dL Phosphorus (2.5-4.5) mg/dL 07/09/22 07/09/22 07/09/22 Range/Units 21:48 21:48 22:07 WBC (3.8-10.6) k/uL RBC (4.30-5.90) m/uL Hgb (13.0-17.5) gm/dL Hct (39.0-53.0) % VBG pH (7.31-7.41) VBG HCO3 (24-28) mmol/L Sodium 131 L (137-145) mmol/L Potassium (3.5-5.1) mmol/L Chloride (98-107) mmol/L Carbon Dioxide (22-30) mmol/L BUN 38 H (9-20) mg/dL Glucose 135 H (74-99) mg/dL POC Glucose (mg/dL) 145 H (70-110) mg/dL Hemoglobin A1c (0.0-6.0) % Plasma Lactic Acid Clint 3.0 H* (0.7-2.0) mmol/L Calcium (8.4-10.2) mg/dL Phosphorus 1.9 L (2.5-4.5) mg/dL 07/09/22 07/10/22 07/10/22 Range/Units 22:59 00:06 01:05 WBC (3.8-10.6) k/uL RBC (4.30-5.90) m/uL Hgb (13.0-17.5) gm/dL Hct (39.0-53.0) % VBG pH (7.31-7.41) VBG HCO3 (24-28) mmol/L Sodium 129 L (137-145) mmol/L Potassium (3.5-5.1) mmol/L Chloride (98-107) mmol/L Carbon Dioxide 21 L (22-30) mmol/L BUN 36 H (9-20) mg/dL Glucose 157 H (74-99) mg/dL POC Glucose (mg/dL) 133 H 155 H (70-110) mg/dL Hemoglobin A1c (0.0-6.0) % Plasma Lactic Acid Clint (0.7-2.0) mmol/L Calcium 8.2 L (8.4-10.2) mg/dL Phosphorus (2.5-4.5) mg/dL 07/10/22 07/10/22 07/10/22 Range/Units 01:07 02:29 06:57 WBC (3.8-10.6) k/uL RBC (4.30-5.90) m/uL Hgb (13.0-17.5) gm/dL Hct (39.0-53.0) % VBG pH (7.31-7.41) VBG HCO3 (24-28) mmol/L Sodium (137-145) mmol/L Potassium (3.5-5.1) mmol/L Chloride (98-107) mmol/L Carbon Dioxide (22-30) mmol/L BUN (9-20) mg/dL Glucose (74-99) mg/dL POC Glucose (mg/dL) 183 H 208 H 211 H (70-110) mg/dL Hemoglobin A1c (0.0-6.0) % Plasma Lactic Acid Clint (0.7-2.0) mmol/L Calcium (8.4-10.2) mg/dL Phosphorus (2.5-4.5) mg/dL 07/10/22 07/10/22 07/10/22 Range/Units 09:59 11:25 12:54 WBC 19.1 H (3.8-10.6) k/uL RBC 3.83 L (4.30-5.90) m/uL Hgb 12.1 L (13.0-17.5) gm/dL Hct 35.6 L (39.0-53.0) % VBG pH (7.31-7.41) VBG HCO3 (24-28) mmol/L Sodium 130 L (137-145) mmol/L Potassium 3.4 L (3.5-5.1) mmol/L Chloride (98-107) mmol/L Carbon Dioxide 20 L (22-30) mmol/L BUN 31 H (9-20) mg/dL Glucose 246 H (74-99) mg/dL POC Glucose (mg/dL) 235 H (70-110) mg/dL Hemoglobin A1c (0.0-6.0) % Plasma Lactic Acid Clint (0.7-2.0) mmol/L Calcium 7.8 L (8.4-10.2) mg/dL Phosphorus 1.8 L (2.5-4.5) mg/dL Microbiology - Last 24 Hours (Table) 07/09/22 11:33 Gram Stain - Preliminary Foot - Left Wound Culture - Preliminary Beta Hemolytic Strep Group G 07/09/22 11:33 Gram Stain - Preliminary Foot - Right Wound Culture - Preliminary Beta Hemolytic Strep Group G 07/09/22 11:33 Blood Culture - Preliminary Blood No Growth after 24 hours 07/09/22 11:33 Blood Culture - Preliminary Blood No Growth after 24 hours Assessment and Plan Plan: Assessment: #1. Acute diabetic ketoacidosis, new onset diabetes or possibly noncompliant diabetic, recovered and the patient's anion gap has closed and the patient is currently on Levemir insulin long-acting #2. Extensive cellulitis involving bilateral lower extremities along with various stages of diabetic wounds and chronic venous stasis #3. Acute kidney injury , improved and the creatinine is normalized #4. Hyponatremia, related to dehydration, follow-up level of sodium is also normalized #5. Lactic acidosis improved #6. Nonsmoker #7. Hypertension #8. History of osteoarthritis with previous history of hip replacement #9. History of cataracts #10. Obesity Plan: Continue Levemir insulin along with his last care coverage. The Levemir will be worked up to 22 units once a day and the patient will be given also 5 units NovoLog with meals Continue Unasyn and vancomycin for now Surgical debridement of the lower extremity once/diabetic wounds Cultures from the wound has been obtained wound care Lovenox for DVT prophylaxis advance diet as tolerated we'll transfer this patient out of the intensive care unit
[2022-07-10 16:49] LABS: Glucose,Whole Blood 189 mg/dL (70-110)
--- NOTE | 2022-07-10 17:28 | P.PN ---
Subjective Progress Note Date: 07/10/22 (delayed charting seen at 1130) Patient is a 67-year-old male who does not frequently follow-up with physicians with a history of hypertension, borderline dyslipidemia, and osteoarthritis who presented to the ER with complaints of bilateral lower extremity redness. The ER he underwent an extensive evaluation. On arrival he was slightly tachycardic. He underwent an extensive laboratory evaluation which was normal for white count of 75, sodium 125, potassium 5.6, chloride 89, carbon dioxide 8, anion gap 28, BUN 43, creatinine 1.46, blood glucose 754, lactic acid 6.7. Urinalysis showed 2+ ketones and was acetone positive. He was started on IV fluids, antibiotics, and in insulin drip. Critical care and vascular surgery were consulted. His gap closed overnight on 07/09/22 and he was transitioned off the insulin gtt and onto subcutaneous insulin. Vascular surgery did recommend debridement. Patient seen and exmained at bedside. He is feeling better than yesterday. Denies any chest pain, nuasea, abdominal pain. legs are less painful than yesterday. General: nontoxic, no distress, appears at stated age Derm:Right lower extremity with erythema extending from the toes to just below the knee associated with edema, skin sloughing, and multiple areas of ulceration of which show purulent drainage, toes appear dusky. Left lower extremity with erythema from tip of the toes to ankle which also shows diffuse erythema with skin sloughing and ulcerations as well as a blister over dorsalis pedis. Head: atraumatic, normocephalic, symmetric Eyes: EOMI, no lid lag, anicteric sclera, proptosis Mouth: no lip lesion, mucus membranes moist Cardiovascular: S1S2 reg, no murmur, positive posterior tibial pulse bilateral, Lungs: CTA bilateral, no rhonchi, no rales , no accessory muscle use Abdominal: soft, nontender to palpation, no guarding, no appreciable organomegaly Ext: no gross muscle atrophy, no edema, no contractures Neuro: CN II-XI grossly intact, no focal neuro deficits Psych: Alert, oriented, appropriate affect Assessment/Plan: Newly discovered DM 2 DKA, resolved - fixed dose, SSI, and levemir - follow BS - dietitan consult -check A1C 14.1 Bilateral lower extremity cellulitis with ulceration and severe sepsis venous insufficiency -await cultures -Continue with vancomycin and Unasyn -ID recs -vascular surgery recs -MARGARETH 1.19,1.12 Anemia - follow CBC - suspect dilutional due to IVF - no indication for transfusion HTN hx - follow BP Obesity with BMI 36.4 - structured outpatient weight loss Acute kidney injury, resolved Lactic acid 6.7 possibly secondary to sepsis versus contraction from DKA, resolved Pseudo-hyponatremia, resolved Hyperkalemia, resolved DVT prophylaxis: Lovenox Discussed with: Patient, nursing Anticipated discharge date: pending clinical course Anticipated discharge place: pending clinical course A total of 35 minutes was spent on the care of this complex patient more than 50% of the time was spent in counseling and care coordination. Objective - Vital Signs Vital signs: Vital Signs Temp 98.6 F 07/10/22 13:00 Pulse 93 07/10/22 13:00 Resp 17 07/10/22 13:00 BP 118/68 07/10/22 13:00 Pulse Ox 97 07/10/22 13:00 FiO2 Intake & Output 07/09/22 07/10/22 07/10/22 18:59 06:59 18:59 Intake Total 850 2576.000 1300 Output Total 300 400 240 Balance 550 2176.000 1060 Weight 85.729 kg 90.2 kg 90.2 kg Intake: IV 1875 850 Ampicillin-Sulbactam 3 gm 100 100 In Sodium Chloride 0.9% 100 ml @ 200 mls/hr IVPB Q8HR [facility] Rx#:[id number] D5-0.45% NaCl with KCl 1275 20Meq/l 1,000 ml @ 150 mls/hr IV .Q6H40M [facility] Rx# :[id number] Sodium Phosphate 10 mmol 500 In Sodium Chloride 0.9% 250 ml @ 125 mls/hr IVPB Q2H [facility] Rx#:[id number] Vancomycin 750 Intake, IV Titration 850 501.000 Amount Insulin Regular 100 unit 101.000 In Sodium Chloride 0.9% 100 ml @ 0.1 UNITS/KG/HR 8.659 mls/hr IV .[id number] [facility] Rx#:[id number] Sodium Chloride 0.9% 1, 600 400 000 ml @ 200 mls/hr IV . Q5H [facility] Rx#:[id number] Vancomycin 1,500 mg In 250 Sodium Chloride 0.9% 250 ml @ 125 mls/hr IVPB Q24H [facility] Rx#:[id number] Oral 200 450 Output: Urine 300 400 240 Other: Voiding Method Urinal Urinal - Labs CBC & Chem 7: 07/10/22 12:54 07/10/22 09:59 Labs: Abnormal Lab Results - Last 24 Hours (Table) 07/09/22 07/09/22 07/09/22 Range/Units 11:33 17:35 18:46 WBC (3.8-10.6) k/uL RBC (4.30-5.90) m/uL Hgb (13.0-17.5) gm/dL Hct (39.0-53.0) % Sodium (137-145) mmol/L Potassium (3.5-5.1) mmol/L Chloride (98-107) mmol/L Carbon Dioxide (22-30) mmol/L BUN (9-20) mg/dL Glucose (74-99) mg/dL POC Glucose (mg/dL) 373 H (70-110) mg/dL Hemoglobin A1c 14.1 H (0.0-6.0) % Plasma Lactic Acid Clint 4.3 H* (0.7-2.0) mmol/L Calcium (8.4-10.2) mg/dL Phosphorus (2.5-4.5) mg/dL 07/09/22 07/09/22 07/09/22 Range/Units 18:47 19:13 20:03 WBC (3.8-10.6) k/uL RBC (4.30-5.90) m/uL Hgb (13.0-17.5) gm/dL Hct (39.0-53.0) % Sodium 132 L (137-145) mmol/L Potassium (3.5-5.1) mmol/L Chloride 95 L (98-107) mmol/L Carbon Dioxide 18 L (22-30) mmol/L BUN 38 H (9-20) mg/dL Glucose 200 H (74-99) mg/dL POC Glucose (mg/dL) 320 H 225 H (70-110) mg/dL Hemoglobin A1c (0.0-6.0) % Plasma Lactic Acid Clint (0.7-2.0) mmol/L Calcium (8.4-10.2) mg/dL Phosphorus 2.3 L (2.5-4.5) mg/dL 07/09/22 07/09/22 07/09/22 Range/Units 21:11 21:48 21:48 WBC (3.8-10.6) k/uL RBC (4.30-5.90) m/uL Hgb (13.0-17.5) gm/dL Hct (39.0-53.0) % Sodium 131 L (137-145) mmol/L Potassium (3.5-5.1) mmol/L Chloride (98-107) mmol/L Carbon Dioxide (22-30) mmol/L BUN 38 H (9-20) mg/dL Glucose 135 H (74-99) mg/dL POC Glucose (mg/dL) 265 H (70-110) mg/dL Hemoglobin A1c (0.0-6.0) % Plasma Lactic Acid Clint 3.0 H* (0.7-2.0) mmol/L Calcium (8.4-10.2) mg/dL Phosphorus 1.9 L (2.5-4.5) mg/dL 07/09/22 07/09/22 07/10/22 Range/Units 22:07 22:59 00:06 WBC (3.8-10.6) k/uL RBC (4.30-5.90) m/uL Hgb (13.0-17.5) gm/dL Hct (39.0-53.0) % Sodium (137-145) mmol/L Potassium (3.5-5.1) mmol/L Chloride (98-107) mmol/L Carbon Dioxide (22-30) mmol/L BUN (9-20) mg/dL Glucose (74-99) mg/dL POC Glucose (mg/dL) 145 H 133 H 155 H (70-110) mg/dL Hemoglobin A1c (0.0-6.0) % Plasma Lactic Acid Clint (0.7-2.0) mmol/L Calcium (8.4-10.2) mg/dL Phosphorus (2.5-4.5) mg/dL 07/10/22 07/10/22 07/10/22 Range/Units 01:05 01:07 02:29 WBC (3.8-10.6) k/uL RBC (4.30-5.90) m/uL Hgb (13.0-17.5) gm/dL Hct (39.0-53.0) % Sodium 129 L (137-145) mmol/L Potassium (3.5-5.1) mmol/L Chloride (98-107) mmol/L Carbon Dioxide 21 L (22-30) mmol/L BUN 36 H (9-20) mg/dL Glucose 157 H (74-99) mg/dL POC Glucose (mg/dL) 183 H 208 H (70-110) mg/dL Hemoglobin A1c (0.0-6.0) % Plasma Lactic Acid Clint (0.7-2.0) mmol/L Calcium 8.2 L (8.4-10.2) mg/dL Phosphorus (2.5-4.5) mg/dL 07/10/22 07/10/22 07/10/22 Range/Units 06:57 09:59 11:25 WBC (3.8-10.6) k/uL RBC (4.30-5.90) m/uL Hgb (13.0-17.5) gm/dL Hct (39.0-53.0) % Sodium 130 L (137-145) mmol/L Potassium 3.4 L (3.5-5.1) mmol/L Chloride (98-107) mmol/L Carbon Dioxide 20 L (22-30) mmol/L BUN 31 H (9-20) mg/dL Glucose 246 H (74-99) mg/dL POC Glucose (mg/dL) 211 H 235 H (70-110) mg/dL Hemoglobin A1c (0.0-6.0) % Plasma Lactic Acid Clint (0.7-2.0) mmol/L Calcium 7.8 L (8.4-10.2) mg/dL Phosphorus 1.8 L (2.5-4.5) mg/dL 07/10/22 07/10/22 Range/Units 12:54 16:48 WBC 19.1 H (3.8-10.6) k/uL RBC 3.83 L (4.30-5.90) m/uL Hgb 12.1 L (13.0-17.5) gm/dL Hct 35.6 L (39.0-53.0) % Sodium (137-145) mmol/L Potassium (3.5-5.1) mmol/L Chloride (98-107) mmol/L Carbon Dioxide (22-30) mmol/L BUN (9-20) mg/dL Glucose (74-99) mg/dL POC Glucose (mg/dL) 189 H (70-110) mg/dL Hemoglobin A1c (0.0-6.0) % Plasma Lactic Acid Clint (0.7-2.0) mmol/L Calcium (8.4-10.2) mg/dL Phosphorus (2.5-4.5) mg/dL Microbiology - Last 24 Hours (Table) 07/09/22 11:33 Gram Stain - Preliminary Foot - Left Wound Culture - Preliminary Beta Hemolytic Strep Group G 07/09/22 11:33 Gram Stain - Preliminary Foot - Right Wound Culture - Preliminary Beta Hemolytic Strep Group G 07/09/22 11:33 Blood Culture - Preliminary Blood No Growth after 24 hours 07/09/22 11:33 Blood Culture - Preliminary Blood No Growth after 24 hours
[2022-07-10 20:19] LABS: Glucose,Whole Blood 166 mg/dL (70-110)
--- NOTE | 2022-07-10 21:52 | P.CONS ---
History of Present Illness - Reason for Consult Consult date: 07/10/22 Cellulitis bilateral lower extremity Requesting physician: Su Mario - Chief Complaint Nonhealing wound and redness to both feet x 1 week - History of Present Illness Patient is a 67-year-old male presented to hospital with yesterday morning for evaluation of bilateral extremity swelling and redness and bilateral foot wounds apparently symptom has been going on for about a month patient denies any history of any trauma patient noticed increasing swelling redness and wounds to bilateral feet daily for the last 2 weeks patient has been complaining of some dull aching pain 3-4 out of 10 and no radiation, patient did have some diffuse swelling redness and ulceration and minimal drainage on presentation to the hospital patient was afebrile and did have a low-grade fever afterwards patient did have a white count of 17.5 which is up to 19,000 today with a left shift kidney function has been normal did have elevated lactic acid serum acetone Was positive patient has been diagnosed with the diabetic ketoacidosis and was admitted to the ICU patient did have local cultures obtained patient is currently being treated with Unasyn and vancomycin infectious disease was consulted for further management of antibiotic therapy Review of Systems Positive point has been mentioned in the HPI rest of the systems are negative Past Medical History Past Medical History: Hypertension Additional Past Medical History / Comment(s): borderline cholesterol History of Any Multi-Drug Resistant Organisms: None Reported Past Surgical History: Orthopedic Surgery Additional Past Surgical History / Comment(s): hip replacement left, cataracts, surgery as a child right leg Smoking Status: Never smoker Past Alcohol Use History: None Reported Past Drug Use History: None Reported - Past Family History family Additional Family Medical History / Comment(s): No family hx of diabetes Medications and Allergies Home Medications Medication Instructions Recorded Confirmed Type No Known Home Medications 07/09/22 07/09/22 History Allergies Allergy/AdvReac Type Severity Reaction Status Date / Time No Known Allergies Allergy Verified 07/09/22 13:51 Physical Exam Vitals: Vital Signs Temp Pulse Resp BP Pulse Ox 07/10/22 09:00 95 21 118/62 93 L 07/10/22 08:00 99 F 97 22 132/75 94 L 07/10/22 07:00 96 17 118/67 95 07/10/22 06:00 92 13 112/79 97 07/10/22 05:00 93 27 H 126/63 96 07/10/22 04:00 98.1 F 101 H 24 98/59 92 L 07/10/22 03:00 102 H 15 104/63 98 07/10/22 02:00 103 H 12 109/63 96 07/10/22 01:00 105 H 22 101/61 94 L 07/10/22 00:00 99.1 F 103 H 20 111/60 94 L 07/09/22 23:00 105 H 13 102/64 96 07/09/22 22:00 111 H 12 102/81 96 07/09/22 21:00 109 H 17 117/62 94 L 07/09/22 20:00 98.5 F 111 H 17 105/70 97 07/09/22 19:00 112 H 17 109/63 92 L 07/09/22 18:45 111 H 18 109/68 96 07/09/22 18:30 109 H 17 113/75 98 07/09/22 18:15 109 H 29 H 104/67 97 07/09/22 18:00 98.3 F 105 H 27 H 105/82 93 L 07/09/22 17:45 18 113/90 92 L 07/09/22 17:35 94 L 07/09/22 17:29 42 H 07/09/22 16:10 115 H 16 132/86 98 07/09/22 11:18 98.3 F 116 H 22 131/90 97 Intake and Output 07/09/22 07/10/22 07/10/22 22:59 06:59 14:59 Intake Total 5447.383 5723 1050 Output Total 300 400 Balance 8744.438 6036 1050 Intake: IV 300 1575 600 Ampicillin-Sulbactam 3 gm 100 100 In Sodium Chloride 0.9% 100 ml @ 200 mls/hr IVPB Q8HR MICHAEL Rx#:[id number] D5-0.45% NaCl with KCl 300 975 20Meq/l 1,000 ml @ 150 mls/hr IV .[id number] MICHAEL Rx# :[id number] Sodium Phosphate 10 mmol 500 In Sodium Chloride 0.9% 250 ml @ 125 mls/hr IVPB Q2H MICHAEL Rx#:[id number] Vancomycin 500 Intake, IV Titration 1351.000 Amount Insulin Regular 100 unit 101.000 In Sodium Chloride 0.9% 100 ml @ 0.1 UNITS/KG/HR 8.659 mls/hr IV .[id number] MICHAEL Rx#:[id number] Sodium Chloride 0.9% 1, 1000 000 ml @ 200 mls/hr IV . Q5H MICHAEL Rx#:[id number] Vancomycin 1,500 mg In 250 Sodium Chloride 0.9% 250 ml @ 125 mls/hr IVPB Q24H MICHAEL Rx#:[id number] Oral 200 450 Output: Urine 300 400 Other: Voiding Method Urinal Urinal Urinal Weight 85.729 kg 90.2 kg GENERAL DESCRIPTION: Elderly male lying in bed, no distress. No tachypnea or accessory muscle of respiration use. HEENT: Shows Pallor , no scleral icterus. Oral mucous membrane is dry. No pharyngeal erythema or thrush NECK: Trachea central, no thyromegaly. LUNGS: Unlabored breathing. Clear to auscultation anteriorly. No wheeze or crackle. HEART: S1, S2, regular rate and rhythm. No loud murmur ABDOMEN: Soft, no tenderness , guarding or rigidity, no organomegaly EXTREMITIES: Bilateral feet with diffuse swelling superficial ulcerations of slough tissue surrounding redness. SKIN: No rash, no masses palpable. NEUROLOGICAL: The patient is awake, alert, oriented x3, mood and affect normal. Results CBC & Chem 7: 07/10/22 12:54 07/10/22 09:59 Labs: Abnormal Lab Results - Last 24 Hours (Table) 07/09/22 07/09/22 07/09/22 Range/Units 11:28 11:33 11:33 WBC 17.5 H (3.8-10.6) k/uL Neutrophils # 15.8 H (1.3-7.7) k/uL Lymphocytes # 0.7 L (1.0-4.8) k/uL VBG pH (7.31-7.41) VBG HCO3 (24-28) mmol/L Sodium (137-145) mmol/L Potassium (3.5-5.1) mmol/L Chloride (98-107) mmol/L Carbon Dioxide (22-30) mmol/L BUN (9-20) mg/dL Creatinine (0.66-1.25) mg/dL Glucose (74-99) mg/dL POC Glucose (mg/dL) >600 H (70-110) mg/dL Hemoglobin A1c (0.0-6.0) % Plasma Lactic Acid Clint (0.7-2.0) mmol/L Calcium (8.4-10.2) mg/dL Phosphorus (2.5-4.5) mg/dL Total Bilirubin (0.2-1.3) mg/dL Alkaline Phosphatase (38-126) U/L Urine Glucose (UA) 4+ H (Negative) Urine Ketones 2+ H (Negative) Urine Blood Small H (Negative) Urine Mucus Rare H (None) /hpf 07/09/22 07/09/22 07/09/22 Range/Units 11:33 11:33 11:33 WBC (3.8-10.6) k/uL Neutrophils # (1.3-7.7) k/uL Lymphocytes # (1.0-4.8) k/uL VBG pH (7.31-7.41) VBG HCO3 (24-28) mmol/L Sodium 125 L (137-145) mmol/L Potassium 5.6 H (3.5-5.1) mmol/L Chloride 89 L (98-107) mmol/L Carbon Dioxide 8 L* (22-30) mmol/L BUN 43 H (9-20) mg/dL Creatinine 1.46 H (0.66-1.25) mg/dL Glucose 754 H* (74-99) mg/dL POC Glucose (mg/dL) (70-110) mg/dL Hemoglobin A1c 14.1 H (0.0-6.0) % Plasma Lactic Acid Clint 6.7 H* (0.7-2.0) mmol/L Calcium (8.4-10.2) mg/dL Phosphorus (2.5-4.5) mg/dL Total Bilirubin 1.4 H (0.2-1.3) mg/dL Alkaline Phosphatase 136 H (38-126) U/L Urine Glucose (UA) (Negative) Urine Ketones (Negative) Urine Blood (Negative) Urine Mucus (None) /hpf 07/09/22 07/09/22 07/09/22 Range/Units 15:17 15:30 16:33 WBC (3.8-10.6) k/uL Neutrophils # (1.3-7.7) k/uL Lymphocytes # (1.0-4.8) k/uL VBG pH (7.31-7.41) VBG HCO3 (24-28) mmol/L Sodium (137-145) mmol/L Potassium (3.5-5.1) mmol/L Chloride (98-107) mmol/L Carbon Dioxide (22-30) mmol/L BUN (9-20) mg/dL Creatinine (0.66-1.25) mg/dL Glucose (74-99) mg/dL POC Glucose (mg/dL) 543 H 397 H (70-110) mg/dL Hemoglobin A1c (0.0-6.0) % Plasma Lactic Acid Clint 4.0 H* (0.7-2.0) mmol/L Calcium (8.4-10.2) mg/dL Phosphorus (2.5-4.5) mg/dL Total Bilirubin (0.2-1.3) mg/dL Alkaline Phosphatase (38-126) U/L Urine Glucose (UA) (Negative) Urine Ketones (Negative) Urine Blood (Negative) Urine Mucus (None) /hpf 07/09/22 07/09/22 07/09/22 Range/Units 16:43 16:43 17:35 WBC (3.8-10.6) k/uL Neutrophils # (1.3-7.7) k/uL Lymphocytes # (1.0-4.8) k/uL VBG pH 7.27 L (7.31-7.41) VBG HCO3 18 L (24-28) mmol/L Sodium 131 L (137-145) mmol/L Potassium (3.5-5.1) mmol/L Chloride 94 L (98-107) mmol/L Carbon Dioxide 15 L (22-30) mmol/L BUN 38 H (9-20) mg/dL Creatinine (0.66-1.25) mg/dL Glucose 342 H (74-99) mg/dL POC Glucose (mg/dL) 373 H (70-110) mg/dL Hemoglobin A1c (0.0-6.0) % Plasma Lactic Acid Clint (0.7-2.0) mmol/L Calcium (8.4-10.2) mg/dL Phosphorus (2.5-4.5) mg/dL Total Bilirubin (0.2-1.3) mg/dL Alkaline Phosphatase (38-126) U/L Urine Glucose (UA) (Negative) Urine Ketones (Negative) Urine Blood (Negative) Urine Mucus (None) /hpf 07/09/22 07/09/22 07/09/22 Range/Units 18:46 18:47 19:13 WBC (3.8-10.6) k/uL Neutrophils # (1.3-7.7) k/uL Lymphocytes # (1.0-4.8) k/uL VBG pH (7.31-7.41) VBG HCO3 (24-28) mmol/L Sodium 132 L (137-145) mmol/L Potassium (3.5-5.1) mmol/L Chloride 95 L (98-107) mmol/L Carbon Dioxide 18 L (22-30) mmol/L BUN 38 H (9-20) mg/dL Creatinine (0.66-1.25) mg/dL Glucose 200 H (74-99) mg/dL POC Glucose (mg/dL) 320 H (70-110) mg/dL Hemoglobin A1c (0.0-6.0) % Plasma Lactic Acid Clint 4.3 H* (0.7-2.0) mmol/L Calcium (8.4-10.2) mg/dL Phosphorus 2.3 L (2.5-4.5) mg/dL Total Bilirubin (0.2-1.3) mg/dL Alkaline Phosphatase (38-126) U/L Urine Glucose (UA) (Negative) Urine Ketones (Negative) Urine Blood (Negative) Urine Mucus (None) /hpf 07/09/22 07/09/22 07/09/22 Range/Units 20:03 21:11 21:48 WBC (3.8-10.6) k/uL Neutrophils # (1.3-7.7) k/uL Lymphocytes # (1.0-4.8) k/uL VBG pH (7.31-7.41) VBG HCO3 (24-28) mmol/L Sodium 131 L (137-145) mmol/L Potassium (3.5-5.1) mmol/L Chloride (98-107) mmol/L Carbon Dioxide (22-30) mmol/L BUN 38 H (9-20) mg/dL Creatinine (0.66-1.25) mg/dL Glucose 135 H (74-99) mg/dL POC Glucose (mg/dL) 225 H 265 H (70-110) mg/dL Hemoglobin A1c (0.0-6.0) % Plasma Lactic Acid Clint (0.7-2.0) mmol/L Calcium (8.4-10.2) mg/dL Phosphorus 1.9 L (2.5-4.5) mg/dL Total Bilirubin (0.2-1.3) mg/dL Alkaline Phosphatase (38-126) U/L Urine Glucose (UA) (Negative) Urine Ketones (Negative) Urine Blood (Negative) Urine Mucus (None) /hpf 07/09/22 07/09/22 07/09/22 Range/Units 21:48 22:07 22:59 WBC (3.8-10.6) k/uL Neutrophils # (1.3-7.7) k/uL Lymphocytes # (1.0-4.8) k/uL VBG pH (7.31-7.41) VBG HCO3 (24-28) mmol/L Sodium (137-145) mmol/L Potassium (3.5-5.1) mmol/L Chloride (98-107) mmol/L Carbon Dioxide (22-30) mmol/L BUN (9-20) mg/dL Creatinine (0.66-1.25) mg/dL Glucose (74-99) mg/dL POC Glucose (mg/dL) 145 H 133 H (70-110) mg/dL Hemoglobin A1c (0.0-6.0) % Plasma Lactic Acid Clint 3.0 H* (0.7-2.0) mmol/L Calcium (8.4-10.2) mg/dL Phosphorus (2.5-4.5) mg/dL Total Bilirubin (0.2-1.3) mg/dL Alkaline Phosphatase (38-126) U/L Urine Glucose (UA) (Negative) Urine Ketones (Negative) Urine Blood (Negative) Urine Mucus (None) /hpf 07/10/22 07/10/22 07/10/22 Range/Units 00:06 01:05 01:07 WBC (3.8-10.6) k/uL Neutrophils # (1.3-7.7) k/uL Lymphocytes # (1.0-4.8) k/uL VBG pH (7.31-7.41) VBG HCO3 (24-28) mmol/L Sodium 129 L (137-145) mmol/L Potassium (3.5-5.1) mmol/L Chloride (98-107) mmol/L Carbon Dioxide 21 L (22-30) mmol/L BUN 36 H (9-20) mg/dL Creatinine (0.66-1.25) mg/dL Glucose 157 H (74-99) mg/dL POC Glucose (mg/dL) 155 H 183 H (70-110) mg/dL Hemoglobin A1c (0.0-6.0) % Plasma Lactic Acid Clint (0.7-2.0) mmol/L Calcium 8.2 L (8.4-10.2) mg/dL Phosphorus (2.5-4.5) mg/dL Total Bilirubin (0.2-1.3) mg/dL Alkaline Phosphatase (38-126) U/L Urine Glucose (UA) (Negative) Urine Ketones (Negative) Urine Blood (Negative) Urine Mucus (None) /hpf 07/10/22 07/10/22 Range/Units 02:29 06:57 WBC (3.8-10.6) k/uL Neutrophils # (1.3-7.7) k/uL Lymphocytes # (1.0-4.8) k/uL VBG pH (7.31-7.41) VBG HCO3 (24-28) mmol/L Sodium (137-145) mmol/L Potassium (3.5-5.1) mmol/L Chloride (98-107) mmol/L Carbon Dioxide (22-30) mmol/L BUN (9-20) mg/dL Creatinine (0.66-1.25) mg/dL Glucose (74-99) mg/dL POC Glucose (mg/dL) 208 H 211 H (70-110) mg/dL Hemoglobin A1c (0.0-6.0) % Plasma Lactic Acid Clint (0.7-2.0) mmol/L Calcium (8.4-10.2) mg/dL Phosphorus (2.5-4.5) mg/dL Total Bilirubin (0.2-1.3) mg/dL Alkaline Phosphatase (38-126) U/L Urine Glucose (UA) (Negative) Urine Ketones (Negative) Urine Blood (Negative) Urine Mucus (None) /hpf Microbiology - Last 24 Hours (Table) 07/09/22 11:33 Gram Stain - Preliminary Foot - Left Wound Culture - Preliminary 07/09/22 11:33 Gram Stain - Preliminary Foot - Right Wound Culture - Preliminary Assessment and Plan (1) Bilateral lower leg cellulitis Current Visit: Yes Status: Acute Code(s): L03.116 - CELLULITIS OF LEFT LOWER LIMB; L03.115 - CELLULITIS OF RIGHT LOWER LIMB SNOMED Code(s): 478984937 (2) Diabetic ulcer of both feet Current Visit: Yes Status: Acute Code(s): E11.621 - TYPE 2 DIABETES MELLITUS WITH FOOT ULCER; L97.519 - NON-PRS CHRONIC ULCER OTH PRT RIGHT FOOT W UNSP SEVERITY; L97.529 - NON-PRESSURE CHRONIC ULCER OTH PRT LEFT FOOT W UNSP SEVERITY SNOMED Code(s): 507600795 Plan: 1patient with bilateral lower extremity cellulitis in this patient did have superficial ulceration some slough tissue and surrounding redness likely from gram-positive skin duane underlying chronic infection not done excluded in this patient with uncontrolled diabetes and diabetic ketoacidosis. 2patient to continue with Unasyn and vancomycin while waiting for the culture finalized. 3possible surgical debridement and deep culture for vascular surgery. We will follow on clinical condition and cultures to further adjust medication if needed Thank you for this consultation will follow this patient along with you Time with Patient: Greater than 30
[2022-07-11] MEDS: INSULIN DETEMIR (LEVEMIR) 100 UNIT/ML SYR SQ SCH ×2 (00:49→23:30)
[2022-07-11] MEDS: VANCOMYCIN 1,500 MG in SODIUM CHLORIDE 0.9% 250 ML IVPB SCH ×2 (02:25→17:46)
[2022-07-11 07:04] LABS: Glucose,Whole Blood 188 mg/dL (70-110)
[2022-07-11 07:18] LABS: African American GFR (CKD) >90 (>60 ml/min/1.73 sqM); Non-African American GFR(CKD) >90 (>60 ml/min/1.73 sqM)
[2022-07-11 08:23] LABS: HCT 36.1 % (39.0-53.0); HGB 12.1 gm/dL (13.0-17.5); MCH 31.6 pg (25.0-35.0); MCHC 33.6 g/dL (31.0-37.0); MCV 94.1 fL (80.0-100.0); Mean Platelet Volume 9.6; Platelet Count 162 k/uL (150-450); Poikilocytosis Slight; RBC 3.83 m/uL (4.30-5.90); RDW 14.5 % (11.5-15.5)
--- NOTE | 2022-07-11 08:25 | CA ---
Transthoracic Echo Report Name: Byron Hobbs Age: 67 Gender: M : 1955 Exam Date: 07/10/2022 13:25 Exam Location: [facility] Ht (in): 62 Wt (lb): 198 Ordering Physician: Pallavi Ureña DO Attending/Referring Phys: [id number], Niranjan Floating Derrick Operator Lila Tejada RDCS Procedure CPT: Indications: Murmur Cardiac Hx: Hx of murmur Technical Quality: Good Contrast 1: Total Dose (mL): Contrast 2: Total Dose (mL): MEASUREMENTS (Male / Female) Normal Values 2D ECHO LV Diastolic Diameter PLAX 3.6 cm 4.2 - 5.9 / 3.9 - 5.3 cm LV Systolic Diameter PLAX 2.6 cm IVS Diastolic Thickness 1.5 cm 0.6 - 1.0 / 0.6 - 0.9 cm LVPW Diastolic Thickness 1.6 cm 0.6 - 1.0 / 0.6 - 0.9 cm LV Relative Wall Thickness 0.8 LA Volume 40.2 cm??? 18 - 58 / 22 - 52 cm??? M-MODE Aortic Root Diameter MM 3.6 cm LA Systolic Diameter MM 3.0 cm LA Ao Ratio MM 0.8 MV E Point Septal Separation 1.9 cm AV Cusp Separation MM 1.8 cm DOPPLER AV Peak Velocity 133.2 cm/s AV Peak Gradient 7.1 mmHg MV Area PHT 3.8 cm??? MR Peak Velocity 407.1 cm/s MR Peak Gradient 66.3 mmHg Mitral E Point Velocity 135.9 cm/s Mitral A Point Velocity 85.3 cm/s Mitral E to A Ratio 1.6 MV Deceleration Time 199.7 ms MV E' Velocity 5.3 cm/s Mitral E to MV E' Ratio 25.9 TR Peak Velocity 163.8 cm/s TR Peak Gradient 10.7 mmHg Right Ventricular Systolic Press 15.7 mmHg FINDINGS Left Ventricle Moderately increased septal wall thickness. Left ventricular ejection fraction is estimated at 55-60 %. Left ventricular cavity size normal. Grade 1 diastolic dysfunction. Right Ventricle Normal right ventricular size and function. Right Atrium Normal right atrial size. Left Atrium Normal left atrial size. Mitral Valve Pmvl prolapse with severe regurge. Anteriorly directed mitral regurgitation jet. Aortic Valve Structurally normal aortic valve without significant sclerosis or stenosis. There is no aortic regurgitation. Tricuspid Valve Structurally normal tricuspid valve without significant stenosis. Pulmonary artery systolic pressure is normal. Trace tricuspid regurgitation. Pulmonic Valve Structurally normal pulmonic valve without significant stenosis. There is no pulmonic regurgitation. Pericardium Normal pericardium without effusion. Aorta Normal aortic root dimension. CONCLUSIONS Normal LV systolic function Prolapse of the posterior mitral leaflet with severe mitral regurgitation Consider transesophageal echo for further evaluation Previewed by: Dr. Mauricio Ramirez MD (Electronically Signed) Final Date: 11 July 2022 08:24
[2022-07-11 09:01] LABS: Anion Gap 12 mmol/L; Blood Urea Nitrogen 20 mg/dL (9-20); Calcium 8.2 mg/dL (8.4-10.2); Carbon Dioxide 19 mmol/L (22-30); Chloride 101 mmol/L (98-107); Glucose 180 mg/dL (74-99); Sodium 132 mmol/L (137-145)
[2022-07-11] MEDS: AMPICILLIN-SULBACTAM 3 GM in SODIUM CHLORIDE 0.9% 100 ML IVPB SCH ×3 (09:08→23:31)
[2022-07-11] MEDS: INSULIN ASPART (NovoLOG) 100 UNIT/ML VIAL SQ SCH ×7 (09:08→21:51)
[2022-07-11] MEDS: ENOXAPARIN 40 MG/0.4 ML SYRINGE SQ SCH (09:11)
[2022-07-11 10:54] LABS: Glucose,Whole Blood 149 mg/dL (70-110)
--- NOTE | 2022-07-11 10:58 | P.PN ---
Progress Note - Text Progress Note Date: 07/11/22 Patient seen and examined as a follow-up. He is scheduled for bilateral lower extremity wound debridement. He remains on IV antibiotics. Blood sugar improved. WBC 19 hemoglobin 12 sodium 132 potassium 3.0 BUN 20 creatinine 0.66 glucose 180. Patient agreeable to proceed with bilateral lower extremity debridement. He otherwise denies any shortness of breath or chest pain. He has resting comfortably, appears in no acute distress. Exam: General appearance: The patient is alert, oriented, appears in no acute distress. HET: Head is normocephalic and atraumatic. Neck: Supple without lymphadenopathy. Trachea midline. Extremities: Bilateral lower extremity edema, cellulitis. Dorsal aspect of right foot with wound with nonviable tissue. Bilateral feet with slough skin. Left foot with ulcer on the dorsal aspect with slough tissue and purulent drainage. Multiple small superficial wounds on bilateral feet. Palpable bilateral femoral pulses, multiphasic popliteal, posterior tibialis and dorsalis pedis signals. Neurological: No focal deficits. Strength and sensation are grossly intact. 1. Bilateral lower extremity cellulitis with diabetic ulcers 2. Venous insufficiency 3. Bilateral lower extremity edema 4. Diabetic ketoacidosis 5. Hyponatremia 6. Hypokalemia 7. Acute kidney injury Replace potassium. Keep patient nothing by mouth. Antibiotics per recommendations from infectious disease. Plan for surgical debridement bilateral lower extremities is afternoon. The impression and plan of care has been dictated as directed. Dr. Mcknight I performed a history and examination of this patient, discussed the same with the dictator. I agree with the dictator's note ,documented as a scribe. Any additional findings or plans will be noted.
--- NOTE | 2022-07-11 11:34 | P.CONS ---
History of Present Illness - Reason for Consult Consult date: 07/11/22 wound care - History of Present Illness This is a 67-year-old male who presented to the emergency department this afternoon with complaints of lower extremity swelling and redness with bilateral foot wounds. He denies any past medical history. Denies any previous history of diabetes, states he's a nonsmoker. States he had swelling in his lower extremities for the last 1 month's duration, and started noticing redness and wounds within the last 2 weeks. He denies any fevers or chills. Patient went to a family reunion and kept his shoes on for 4 days. After that time he noticed multiple ulcerations to bilateral feet. Patient has multiple ulcerations with fat layer exposure and slough. Periwound shows erythema and edema. Patient is scheduled for a surgical debridement. Review Of Systems: Constitutional: No fever, no chills, no night sweats. No weight change. No weakness, fatigue or lethargy. No daytime sleepiness. Integumentary:reports wounds, no lesions. No rash or pruritus. No unusual bruising. No change in hair or nails. Physical exam: General Appearance: Alert, cooperative, no distress, appears stated age. Skin: See HPI all other Skin color, texture, tugor normal, no rashes or lesions. Neurologic: Alert oriented x3 Assessment: 1. Nonhealing ulcerations to right foot multiple areas with fat layer exposure 2. Nonhealing ulcerations to left foot multiple areas with fat layer exposure 3. Diabetic foot ulcer Plan: 1.First application 24 hours after surgical debridment: Apply absorptive silver, saline moist gauze, dry gauze, and rolled gauze. secure with tape. Patient would benefit from advanced wound care and wound care setting would be happy to see him in the wound care center. Thank you for the consultation any questions please contact the wound care center DNP note has been reviewed and discussed with Dr. Bower and the impression and plan of care has been directed as dictated. Past Medical History Past Medical History: Hypertension Additional Past Medical History / Comment(s): borderline cholesterol History of Any Multi-Drug Resistant Organisms: None Reported Past Surgical History: Orthopedic Surgery Additional Past Surgical History / Comment(s): hip replacement left, cataracts, surgery as a child right leg Smoking Status: Never smoker Past Alcohol Use History: None Reported Past Drug Use History: None Reported - Past Family History family Additional Family Medical History / Comment(s): No family hx of diabetes Medications and Allergies Home Medications Medication Instructions Recorded Confirmed Type No Known Home Medications 07/09/22 07/09/22 History Allergies Allergy/AdvReac Type Severity Reaction Status Date / Time No Known Allergies Allergy Verified 07/09/22 13:51 Physical Exam Vitals: Vital Signs Temp Pulse Pulse Resp BP BP Pulse Ox 07/11/22 08:02 97.5 F L 87 17 121/66 94 L 07/11/22 00:59 98.3 F 94 20 117/67 92 L 07/10/22 20:00 94 20 07/10/22 19:05 98.9 F 88 16 103/80 96 07/10/22 17:00 92 16 124/71 95 07/10/22 16:00 98.6 F 90 16 129/69 94 L 07/10/22 15:00 93 13 121/68 95 07/10/22 14:00 93 25 H 110/68 96 07/10/22 13:00 98.6 F 93 17 118/68 97 07/10/22 12:00 98.6 F 91 19 126/66 97 Intake and Output 07/10/22 07/11/22 07/11/22 22:59 06:59 14:59 Output Total 0 375 Balance 0 -375 Output: Urine 0 375 Other: Voiding Method Urinal Weight 98 kg Results CBC & Chem 7: 07/11/22 06:25 07/11/22 06:25 Labs: Abnormal Lab Results - Last 24 Hours (Table) 07/10/22 07/10/22 07/10/22 Range/Units 11:25 12:54 16:48 WBC 19.1 H (3.8-10.6) k/uL RBC 3.83 L (4.30-5.90) m/uL Hgb 12.1 L (13.0-17.5) gm/dL Hct 35.6 L (39.0-53.0) % Sodium (137-145) mmol/L Potassium (3.5-5.1) mmol/L Carbon Dioxide (22-30) mmol/L Glucose (74-99) mg/dL POC Glucose (mg/dL) 235 H 189 H (70-110) mg/dL Calcium (8.4-10.2) mg/dL 07/10/22 07/11/22 07/11/22 Range/Units 20:18 06:25 06:25 WBC 19.0 H (3.8-10.6) k/uL RBC 3.83 L (4.30-5.90) m/uL Hgb 12.1 L (13.0-17.5) gm/dL Hct 36.1 L (39.0-53.0) % Sodium 132 L (137-145) mmol/L Potassium 3.0 L (3.5-5.1) mmol/L Carbon Dioxide 19 L (22-30) mmol/L Glucose 180 H (74-99) mg/dL POC Glucose (mg/dL) 166 H (70-110) mg/dL Calcium 8.2 L (8.4-10.2) mg/dL 07/11/22 07/11/22 Range/Units 07:02 10:53 WBC (3.8-10.6) k/uL RBC (4.30-5.90) m/uL Hgb (13.0-17.5) gm/dL Hct (39.0-53.0) % Sodium (137-145) mmol/L Potassium (3.5-5.1) mmol/L Carbon Dioxide (22-30) mmol/L Glucose (74-99) mg/dL POC Glucose (mg/dL) 188 H 149 H (70-110) mg/dL Calcium (8.4-10.2) mg/dL Microbiology - Last 24 Hours (Table) 07/09/22 11:33 Gram Stain - Preliminary Foot - Left Wound Culture - Preliminary Beta Hemolytic Strep Group G 07/09/22 11:33 Gram Stain - Preliminary Foot - Right Wound Culture - Preliminary Beta Hemolytic Strep Group G 07/09/22 11:33 Blood Culture - Preliminary Blood No Growth after 24 hours 07/09/22 11:33 Blood Culture - Preliminary Blood No Growth after 24 hours Assessment and Plan (1) Non-pressure chronic ulcer of other part of right foot with fat layer exposed Current Visit: Yes Status: Acute Code(s): L97.512 - NON-PRS CHRONIC ULCER OTH PRT RIGHT FOOT W FAT LAYER EXPOSED SNOMED Code(s): 426738275 (2) Non-pressure chronic ulcer of other part of left foot with fat layer exposed Current Visit: Yes Status: Acute Code(s): L97.522 - NON-PRS CHRONIC ULCER OTH PRT LEFT FOOT W FAT LAYER EXPOSED SNOMED Code(s): 505284953 (3) Diabetic ulcer of both feet Current Visit: Yes Status: Acute Code(s): E11.621 - TYPE 2 DIABETES MELLITUS WITH FOOT ULCER; L97.519 - NON-PRS CHRONIC ULCER OTH PRT RIGHT FOOT W UNSP SEVERITY; L97.529 - NON-PRESSURE CHRONIC ULCER OTH PRT LEFT FOOT W UNSP SEVERITY SNOMED Code(s): 770542195
[2022-07-11] MEDS ORDERED: Potassium Replacement Protocol 1 EACH MISC MISCELLANE PRN (12:30)
[2022-07-11] MEDS ORDERED: IV FLUID CONTINUATION 1,000 ML IV ONE (12:55)
[2022-07-11] MEDS: POTASSIUM CHLORIDE ER 20 MEQ TAB.ER PO SCH ×2 (13:04→17:29)
--- NOTE | 2022-07-11 15:09 | P.PN ---
Subjective Progress Note Date: 07/11/22 (raisa charting seen at 1015) Patient is a 67-year-old male who does not frequently follow-up with physicians with a history of hypertension, borderline dyslipidemia, and osteoarthritis who presented to the ER with complaints of bilateral lower extremity redness. The ER he underwent an extensive evaluation. On arrival he was slightly tachycardic. He underwent an extensive laboratory evaluation which was normal for white count of 75, sodium 125, potassium 5.6, chloride 89, carbon dioxide 8, anion gap 28, BUN 43, creatinine 1.46, blood glucose 754, lactic acid 6.7. Urinalysis showed 2+ ketones and was acetone positive. He was started on IV fluids, antibiotics, and in insulin drip. Critical care and vascular surgery were consulted. His gap closed overnight on 07/09/22 and he was transitioned off the insulin gtt and onto subcutaneous insulin. Vascular surgery did recommend debridement. Patient seen and examined at bedside. He is feleing very tired. No chest pain, SOB, nausea, no pain in feet at this time. General: nontoxic, no distress, appears at stated age Derm: Right lower extremity with erythema extending from the toes to ankle with edema, skin sloughing, and multiple areas of ulceration, toes appear dusky. Left lower extremity with erythema from tip of the toes to ankle which also shows diffuse erythema with skin sloughing and ulcerations as well as a blister over dorsalis pedis. Head: atraumatic, normocephalic, symmetric Eyes: EOMI, no lid lag, anicteric sclera, proptosis Mouth: no lip lesion, mucus membranes moist Cardiovascular: S1S2 reg, + murmur, positive posterior tibial pulse bilateral, Lungs: Decreased bs bilateral, no rhonchi, no rales , no accessory muscle use Abdominal: soft, nontender to palpation, no guarding, no appreciable organomegaly Ext: no gross muscle atrophy, no edema, no contractures Neuro: CN II-XI grossly intact, no focal neuro deficits Psych: Alert, oriented, appropriate affect Assessment/Plan: Newly discovered DM 2 DKA, resolved - fixed dose, SSI, and levemir - follow BS - dietitan consult - A1C 14.1 Bilateral lower extremity cellulitis with ulceration and severe sepsis- Betahemolytic strep venous insufficiency -Continue with vancomycin and Unasyn -ID recs -vascular surgery recs: debridement today -MARGARETH 1.19,1.12 Hypokalemia - replace and recheck Hyponatemia - mild - encourage oral intake Anemia - follow CBC - suspect dilutional due to IVF - no indication for transfusion HTN hx - follow BP Obesity with BMI 36.4 - structured outpatient weight loss Acute kidney injury, resolved Lactic acid 6.7 possibly secondary to sepsis versus contraction from DKA, resolved Pseudo-hyponatremia, resolved Hyperkalemia, resolved DVT prophylaxis: Lovenox Discussed with: Patient, nursing Anticipated discharge date: pending clinical course Anticipated discharge place: pending clinical course A total of 37 minutes was spent on the care of this complex patient more than 50% of the time was spent in counseling and care coordination. Active Medications Generic Name Dose Route Start Last Admin Trade Name Freq PRN Reason Stop Dose Admin Acetaminophen 650 mg 07/09/22 15:37 Acetaminophen Tab 325 Mg Tab PO Q6HR PRN Mild Pain or Fever > 100.5 Hydrocodone Bitart/Acetaminophen 1 each 07/09/22 15:37 Hydrocodone/Apap 5-325mg 1 Each Tab PO Q4HR PRN Moderate Pain Enoxaparin Sodium 40 mg 07/10/22 09:00 07/11/22 09:11 Enoxaparin 40 Mg/0.4 Ml Syringe SQ 40 mg DAILY MICHAEL Administration Ampicillin Sodium/Sulbactam 100 mls @ 200 mls/hr 07/09/22 16:00 07/11/22 09:08 Sodium 3 gm/ Sodium Chloride IVPB 200 mls/hr Q8HR MICHAEL Administration Protocol Vancomycin HCl 1,500 mg/ 250 mls @ 125 mls/hr 07/11/22 00:00 07/11/22 02:25 Sodium Chloride IVPB 125 mls/hr Q16H MICHAEL Administration Sodium Chloride 1,000 mls @ 75 mls/hr 07/11/22 08:45 Saline 0.9% IV .[id number] [facility] Insulin Aspart 0 unit 07/10/22 07:30 07/11/22 12:27 Insulin Aspart (Novolog) 100 Unit/Ml Vial SQ Not Given ACHS [facility] Protocol Insulin Aspart 5 unit 07/10/22 12:30 07/11/22 12:28 Insulin Aspart (Novolog) 100 Unit/Ml Vial SQ Not Given AC-TID [facility] Insulin Detemir 15 unit 07/10/22 21:00 07/11/22 00:49 Insulin Detemir (Levemir) 100 Unit/Ml Syr SQ 15 unit HS MICHAEL Administration Melatonin 3 mg 07/09/22 15:37 Melatonin 3 Mg Tablet PO HS PRN Insomnia Miscellaneous Information 1 each 07/09/22 15:38 Magnesium Replacement Protocol 1 Each [facility] [place] MISCELLANE DAILY PRN Per Protocol Protocol Miscellaneous Information 1 each 07/09/22 15:38 Potassium Replacement Protocol 1 Each [facility] [place] MISCELLANE DAILY PRN Per Protocol Miscellaneous Information 1 each 07/11/22 12:30 Potassium Replacement Protocol 1 Each [facility] [place] MISCELLANE DAILY PRN Per Protocol Protocol Morphine Sulfate 4 mg 07/09/22 15:37 Morphine Sulfate 4 Mg/Ml Syringe IVP Q4HR PRN Severe Pain Naloxone HCl 0.2 mg 07/09/22 15:36 Naloxone 0.4 Mg/Ml 1 Ml Vial IV Q2M PRN Opioid Reversal Ondansetron HCl 4 mg 07/09/22 15:37 07/11/22 13:04 Ondansetron 4 Mg/2 Ml Vial IVP 4 mg Q8HR PRN Administration Nausea And Vomiting Objective - Vital Signs Vital signs: Vital Signs Temp 97.5 F L 07/11/22 08:02 Pulse 91 07/11/22 12:51 Resp 17 07/11/22 12:51 BP 135/57 07/11/22 12:51 Pulse Ox 97 07/11/22 12:51 FiO2 Intake & Output 07/10/22 07/11/22 07/11/22 18:59 06:59 18:59 Intake Total 1300 Output Total 240 375 Balance 1060 -375 Weight 90.2 kg 98 kg Intake: IV 850 Ampicillin-Sulbactam 3 gm 100 In Sodium Chloride 0.9% 100 ml @ 200 mls/hr IVPB Q8HR [facility]HAEL Rx#:[id number] Vancomycin 750 Oral 450 Output: Urine 240 375 Other: Voiding Method Urinal Urinal - Labs CBC & Chem 7: 07/11/22 06:25 07/11/22 06:25 Labs: Abnormal Lab Results - Last 24 Hours (Table) 07/10/22 07/10/22 07/11/22 Range/Units 16:48 20:18 06:25 WBC (3.8-10.6) k/uL RBC (4.30-5.90) m/uL Hgb (13.0-17.5) gm/dL Hct (39.0-53.0) % Sodium 132 L (137-145) mmol/L Potassium 3.0 L (3.5-5.1) mmol/L Carbon Dioxide 19 L (22-30) mmol/L Glucose 180 H (74-99) mg/dL POC Glucose (mg/dL) 189 H 166 H (70-110) mg/dL Calcium 8.2 L (8.4-10.2) mg/dL 07/11/22 07/11/22 07/11/22 Range/Units 06:25 07:02 10:53 WBC 19.0 H (3.8-10.6) k/uL RBC 3.83 L (4.30-5.90) m/uL Hgb 12.1 L (13.0-17.5) gm/dL Hct 36.1 L (39.0-53.0) % Sodium (137-145) mmol/L Potassium (3.5-5.1) mmol/L Carbon Dioxide (22-30) mmol/L Glucose (74-99) mg/dL POC Glucose (mg/dL) 188 H 149 H (70-110) mg/dL Calcium (8.4-10.2) mg/dL Microbiology - Last 24 Hours (Table) 07/09/22 11:33 Blood Culture - Preliminary Blood No Growth after 48 hours 07/09/22 11:33 Blood Culture - Preliminary Blood No Growth after 48 hours 07/09/22 11:33 Gram Stain - Final Foot - Right Wound Culture - Final Beta Hemolytic Strep Group G Beta Hemolytic Strep Group G#2 07/09/22 11:33 Gram Stain - Final Foot - Left Wound Culture - Final Beta Hemolytic Strep Group G Beta Hemolytic Strep Group G#2
--- NOTE | 2022-07-11 15:58 | P.PN ---
Subjective Progress Note Date: 07/11/22 Principal diagnosis: lower extremity cellulitis, DKA This is 67-year-old male patient who moved to this area from [place] a year ago in July, however has not established himself with the primary care physician, patient states has no medical problems, and he is not on any medications. He came into the emergency department on 07/09/2022 for evaluation of extensive redness, swelling and pain in bilateral lower extremities. Patient states this pain going on for several weeks. However in the emergency department patient stated that he does have a history of hypertension and diabetes during initial evaluation when interviewed by the ER provider. Does not take any medications normally. He states he had a recent trip to [place] for family reunion, he drove his car, and he did not take his socks or shoes for 2-3 days. When he did finally take him off he knows that they were significantly swollen, red, with Diffuse inflammation, sloughing skin. They dsouza ve been draining fluid. Patient also noticed that his been increasingly thirsty and he has been drinking a lot of water, he denied any fever or chills. No difficulty breathing, no chest pain. No nausea or vomiting. His labs revealed leukocytosis with white blood cell count of 17.5, hemoglobin of 14.9, his serum glucose was 754, serum acetone was positive, lactic acid of 6.7. CO2 was 8, serum sodium was 125, potassium is 5.6, chloride is 89. Urinalysis showed 4+ glucose, 2+ ketones small amount of blood, no definite urinary tract infection. Patient was started on IV fluids, insulin infusion, antibiotics including Unasyn, vancomycin, x-ray of the foot has been ordered and pending, infectious disease, and [facility] surgery has been consulted. on 07/11/2022 patient seen in follow-up on medical surgical floor. He is resting comfortably in bed, he states pain and lower extremities is improved, no complaints of respiratory difficulty, he satting 97% on room air. Has been afebrile, blood pressure has been stable, patient is tolerating oral intake, at the moment he is nothing by mouth for surgical debridement of bilateral lower extremity wounds and deep tissue cultures. his bilateral feet wound cultures are positive for beta-hemolytic strep group G, and beta-hemolytic strep group G2. C. diff was negative, his anion gap is 12, bicarbonate concentration level is 19. Vital signs have been stable, he is tolerating oral intake, antibiotic coverage is with Unasyn and vancomycin. Objective - Vital Signs Vital signs: Vital Signs Temp 97.5 F L 07/11/22 08:02 Pulse 91 07/11/22 12:51 Resp 17 07/11/22 12:51 BP 135/57 07/11/22 12:51 Pulse Ox 97 07/11/22 12:51 FiO2 Intake & Output 07/10/22 07/11/22 07/11/22 18:59 06:59 18:59 Intake Total 1300 550 Output Total 240 375 10 Balance 1060 -375 540 Weight 90.2 kg 98 kg Intake: IV 850 550 Ampicillin-Sulbactam 3 gm 100 In Sodium Chloride 0.9% 100 ml @ 200 mls/hr IVPB Q8HR [facility] Rx#:[id number] Vancomycin 750 Oral 450 Output: Urine 240 375 Estimated Blood Loss 10 Other: Voiding Method Urinal Urinal - Exam GENERAL EXAM: 67-year-old white male resting on a gurney in the emergency department awake and alert, oriented 3, breathing comfortably, does not appear to be in any acute distress HEAD: Normocephalic/atraumatic. EYES: Normal reaction of pupils, equal size. Conjunctiva pink, sclera white. NOSE: Clear with pink turbinates. THROAT: No erythema or exudates. NECK: No masses, no JVD, no thyroid enlargement, no adenopathy. CHEST: No chest wall deformity. Symmetrical expansion. LUNGS: Equal air entry with no crackles, wheeze, rhonchi or dullness. CVS: Regular rate and rhythm, normal S1 and S2, no gallops, no murmurs, no rubs ABDOMEN: Soft, nontender. No hepatosplenomegaly, normal bowel sounds, no guarding or rigidity. EXTREMITIES: No clubbing, no cyanosis, 2+ pulses and upper and lower extremit ies. Lower extremity edema, redness, diffuse inflammation, and sloughing of skin MUSCULOSKELETAL: Muscle strength and tone normal. SPINE: No scoliosis or deformity SKIN: No rashes CENTRAL NERVOUS SYSTEM: Alert and oriented -3. No focal deficits, tone is normal in all 4 extremities. PSYCHIATRIC: Alert and oriented -3. Appropriate affect. Intact judgment and insight. - Labs CBC & Chem 7: 07/11/22 06:25 07/11/22 06:25 Labs: Abnormal Lab Results - Last 24 Hours (Table) 07/10/22 07/10/22 07/11/22 Range/Units 16:48 20:18 06:25 WBC (3.8-10.6) k/uL RBC (4.30-5.90) m/uL Hgb (13.0-17.5) gm/dL Hct (39.0-53.0) % Sodium 132 L (137-145) mmol/L Potassium 3.0 L (3.5-5.1) mmol/L Carbon Dioxide 19 L (22-30) mmol/L Glucose 180 H (74-99) mg/dL POC Glucose (mg/dL) 189 H 166 H (70-110) mg/dL Calcium 8.2 L (8.4-10.2) mg/dL 07/11/22 07/11/22 07/11/22 Range/Units 06:25 07:02 10:53 WBC 19.0 H (3.8-10.6) k/uL RBC 3.83 L (4.30-5.90) m/uL Hgb 12.1 L (13.0-17.5) gm/dL Hct 36.1 L (39.0-53.0) % Sodium (137-145) mmol/L Potassium (3.5-5.1) mmol/L Carbon Dioxide (22-30) mmol/L Glucose (74-99) mg/dL POC Glucose (mg/dL) 188 H 149 H (70-110) mg/dL Calcium (8.4-10.2) mg/dL Microbiology - Last 24 Hours (Table) 07/09/22 11:33 Blood Culture - Preliminary Blood No Growth after 48 hours 07/09/22 11:33 Blood Culture - Preliminary Blood No Growth after 48 hours 07/09/22 11:33 Gram Stain - Final Foot - Right Wound Culture - Final Beta Hemolytic Strep Group G Beta Hemolytic Strep Group G#2 07/09/22 11:33 Gram Stain - Final Foot - Left Wound Culture - Final Beta Hemolytic Strep Group G Beta Hemolytic Strep Group G#2 Assessment and Plan Plan: Assessment: #1. Acute diabetic ketoacidosis, new onset diabetes or possibly noncompliant diabetic, improved, patient has been transitioned to a combination of Levemir and NovoLog sliding scale #2. Extensive cellulitis involving bilateral lower extremities, patient is scheduled for surgical debridement and deep wound cultures today on 07/11/2022 #3. Acute kidney injury, improved #4. Hyponatremia, related to dehydration, improved #5. Lactic acidosis, resolved #6. Nonsmoker #7. Hypertension #8. History of osteoarthritis with previous history of hip replacement #9. History of cataracts #10. Obesity with BMI 34.6 kg/m Plan: continue antibiotics Anion gap remains closed on today's labs Renal function improved Vitals stable No acute pulm or critical care issues Will follow his clinical course I have personally seen and examined the patient, performed the documentation and the assessment and plan as written. Number of minutes spent on the visit: [15] I have personally seen and examined the patient and reviewed the documentation. I performed a joint evaluation with the nurse practitioner in this evaluation was done more than 20 minutes. I fully agree with the documentation above and the plan of care.. The patient is stable and the patient has no issues with diabetic ketoacidosis. Cellulitis of the lower extremity is being treated and the patient will receive also wound care. No active pulmonary or critical care issues going to sign off the case. Time with Patient: Less than 30
--- NOTE | 2022-07-11 15:59 | P.OP ---
Date of Procedure: 07/11/22 Preoperative Diagnosis: #1: Abscess dorsum left foot. #2: Unstageable wounds of the feet bilaterally. Postoperative Diagnosis: #1:4.3 cm abscess dorsum of left foot. #2: Multiple stage I/stage II ulcers of both feet. Procedure(s) Performed: #1: Incision and drainage abscess dorsum of left foot with appropriate cultures obtained. #2: Excisional debridement of multiple stage I/stage II wounds of the feet bilaterally. Implants: None. Anesthesia: LIZA Surgeon: Emeterio Mcknight Estimated Blood Loss (ml): 10 Pathology: other (Wound cultures) Condition: stable Disposition: no change Indications for Procedure: Patient is a 67-year-old male who had presented with unstageable wounds of the feet. X-rays did not demonstrate any subcutaneous air. Because of these wounds the patient is offered bribe bent/incision and drainage where appropriate. The procedure, risk and benefits were discussed. Patient wished to proceed. Description of Procedure: Patient was brought the upper and placed in supine position and administered general inhalational anesthesia delivered by the department of anesthesiology. Patient's feet were sterilely prepped and draped in usual manner. Beginning on the left an area of fluctuance was noted on the dorsum of the foot. This was sharply incised and purulent drainage was identified. This drainage was cultured. The wound was then sharply deep prided. This wound extended to the tendons of the dorsum of the foot. It eventually measured 4 cm x 3 cm in length and width. It did not communicate with any other lesion. A large amount of partial-thickness skin was then debrided. No other infectious issue was identified. On the right once again a large amount of nonviable soft tissue was encountered. This was partial thickness of the skin and this was debrided sharply. No abscess or other deep tissue issue was identified. Both wounds were then prepped with Betadine scrub brush. No further lesions were identified. The feet were then washed with saline. Adaptic, 4 x 4's and Kerlix was then placed for dressings on each foot. Heel protector was then fashioned for the heel of the right foot. Patient tolerated the procedure well and was taken to the recovery area satisfactory and stable condition
[2022-07-11 16:11] LABS: Glucose,Whole Blood 106 mg/dL (70-110)
--- NOTE | 2022-07-11 16:52 | XR ---
EXAMINATION TYPE: XR foot complete bilateral DATE OF EXAM: 07/09/2022 CLINICAL HISTORY: pain TECHNIQUE: Frontal, lateral and oblique images of the bilateral feet are obtained. COMPARISON: None. FINDINGS: There is no acute fracture/dislocation evident. There is soft tissue swelling noted about both feet left greater than right at the dorsum. No definite bony destructive process seen. Advanced degenerative change involving the left first metatarsal phalangeal joint and to a lesser extent on th e right. IMPRESSION: There is no acute fracture or dislocation. Soft tissue swelling suggests cellulitis without definite osteomyelitis at this time. Correlate clinically. ICD 10 NO FRACTURE, INITIAL EVALUATION
[2022-07-11 16:54] LABS: Glucose,Whole Blood 118 mg/dL (70-110)
[2022-07-11] MEDS: SODIUM CHLORIDE 0.9% 1,000 ML IV SCH ×2 (21:28→23:31)
[2022-07-11 21:42] LABS: Glucose,Whole Blood 129 mg/dL (70-110)
[2022-07-12 06:58] LABS: Glucose,Whole Blood 64 mg/dL (70-110)
[2022-07-12 07:29] LABS: Glucose,Whole Blood 83 mg/dL (70-110)
[2022-07-12] MEDS ORDERED: VANCOMYCIN TROUGH DUE 1 EACH MISC MISCELLANE ONE (08:05)
--- NOTE | 2022-07-12 08:18 | P.PN ---
Subjective Progress Note Date: 07/11/22 Principal diagnosis: Diabetic foot abscess and cellulitis Patient is a 67 year old male with a past medical history significant for diabetes mellitus presented to hospital with worsening pain swelling redness and drainage from his bilateral feet area patient has been diagnosed with a cellulitis/abscess. Patient is scheduled for surgical debridement and drainage of this afternoon On today's evaluation that is 07/11/2022, the patient denies having any fever or any chills, patient is breathing comfortably, patient pain to the bilateral feet has slightly decreased in intensity no chest pain shortness of breath or cough no abdominal pain or diarrhea Objective - Vital Signs Vital signs: Vital Signs Temp 97.5 F L 07/11/22 08:02 Pulse 91 07/11/22 12:51 Resp 17 07/11/22 12:51 BP 135/57 07/11/22 12:51 Pulse Ox 97 07/11/22 12:51 FiO2 Intake & Output 07/10/22 07/11/22 07/11/22 18:59 06:59 18:59 Intake Total 1300 Output Total 240 375 Balance 1060 -375 Weight 90.2 kg 98 kg Intake: IV 850 Ampicillin-Sulbactam 3 gm 100 In Sodium Chloride 0.9% 100 ml @ 200 mls/hr IVPB Q8HR [facility] Rx#:[id number] Vancomycin 750 Oral 450 Output: Urine 240 375 Other: Voiding Method Urinal Urinal - Exam GENERAL DESCRIPTION: An elderly male lying in bed in no distress RESPIRATORY SYSTEM: Unlabored breathing , decreased breath sounds at bases HEART: S1 S2 regular rate and rhythm , ABDOMEN: Soft , no tenderness EXTREMITIES: Bilateral feet with swelling and ulceration and redness - Labs CBC & Chem 7: 07/11/22 06:25 07/11/22 06:25 Labs: Abnormal Lab Results - Last 24 Hours (Table) 07/10/22 07/10/22 07/11/22 Range/Units 16:48 20:18 06:25 WBC (3.8-10.6) k/uL RBC (4.30-5.90) m/uL Hgb (13.0-17.5) gm/dL Hct (39.0-53.0) % Sodium 132 L (137-145) mmol/L Potassium 3.0 L (3.5-5.1) mmol/L Carbon Dioxide 19 L (22-30) mmol/L Glucose 180 H (74-99) mg/dL POC Glucose (mg/dL) 189 H 166 H (70-110) mg/dL Calcium 8.2 L (8.4-10.2) mg/dL 07/11/22 07/11/22 07/11/22 Range/Units 06:25 07:02 10:53 WBC 19.0 H (3.8-10.6) k/uL RBC 3.83 L (4.30-5.90) m/uL Hgb 12.1 L (13.0-17.5) gm/dL Hct 36.1 L (39.0-53.0) % Sodium (137-145) mmol/L Potassium (3.5-5.1) mmol/L Carbon Dioxide (22-30) mmol/L Glucose (74-99) mg/dL POC Glucose (mg/dL) 188 H 149 H (70-110) mg/dL Calcium (8.4-10.2) mg/dL Microbiology - Last 24 Hours (Table) 07/09/22 11:33 Gram Stain - Final Foot - Right Wound Culture - Final Beta Hemolytic Strep Group G Beta Hemolytic Strep Group G#2 07/09/22 11:33 Gram Stain - Final Foot - Left Wound Culture - Final Beta Hemolytic Strep Group G Beta Hemolytic Strep Group G#2 07/09/22 11:33 Blood Culture - Preliminary Blood No Growth after 24 hours 07/09/22 11:33 Blood Culture - Preliminary Blood No Growth after 24 hours Assessment and Plan (1) Bilateral lower leg cellulitis Current Visit: Yes Status: Acute Code(s): L03.116 - CELLULITIS OF LEFT LOWER LIMB; L03.115 - CELLULITIS OF RIGHT LOWER LIMB SNOMED Code(s): 700484373 (2) Diabetic ulcer of both feet Current Visit: Yes Status: Acute Code(s): E11.621 - TYPE 2 DIABETES MELLITUS WITH FOOT ULCER; L97.519 - NON-PRS CHRONIC ULCER OTH PRT RIGHT FOOT W UNSP SEVERITY; L97.529 - NON-PRESSURE CHRONIC ULCER OTH PRT LEFT FOOT W UNSP SEVERITY SNOMED Code(s): 334938168 Plan: 1patient with bilateral lower extremity cellulitis in this patient did have superficial ulceration some slough tissue and surrounding redness likely from gram-positive skin duane underlying chronic infection not done excluded in this patient with uncontrolled diabetes and diabetic ketoacidosis. 2patient to continue with Unasyn and vancomycin while waiting for the culture finalized. 3patient is scheduled for surgical debridement and deep culture per vascular surgery this afternoon. Time with Patient: Less than 30
[2022-07-12] MEDS: INSULIN ASPART (NovoLOG) 100 UNIT/ML VIAL SQ SCH ×7 (08:49→21:46)
[2022-07-12 09:05] LABS: HCT 37.5 % (39.0-53.0); HGB 12.7 gm/dL (13.0-17.5); MCH 31.7 pg (25.0-35.0); MCHC 33.8 g/dL (31.0-37.0); MCV 93.9 fL (80.0-100.0); Platelet Count 192 k/uL (150-450); Poikilocytosis Slight; RBC 3.99 m/uL (4.30-5.90); RDW 15.2 % (11.5-15.5); WBC 14.5 k/uL (3.8-10.6)
[2022-07-12 09:08] LABS: African American GFR (CKD) >90 (>60 ml/min/1.73 sqM); Anion Gap 7 mmol/L; Blood Urea Nitrogen 14 mg/dL (9-20); Calcium 7.8 mg/dL (8.4-10.2); Carbon Dioxide 23 mmol/L (22-30); Chloride 105 mmol/L (98-107); Glucose 138 mg/dL (74-99); Non-African American GFR(CKD) >90 (>60 ml/min/1.73 sqM); Potassium 3.6 mmol/L (3.5-5.1); Sodium 135 mmol/L (137-145)
[2022-07-12] MEDS: ENOXAPARIN 40 MG/0.4 ML SYRINGE SQ SCH (09:58)
[2022-07-12] MEDS: AMPICILLIN-SULBACTAM 3 GM in SODIUM CHLORIDE 0.9% 100 ML IVPB SCH ×2 (09:59→18:00)
[2022-07-12 11:21] LABS: Glucose,Whole Blood 209 mg/dL (70-110)
--- NOTE | 2022-07-12 11:42 | P.PN ---
Subjective Progress Note Date: 07/12/22 Principal diagnosis: Lower extremity cellulitis, diabetic ulcers Patient is seen and examined today as a follow-up. He is postop day #1 for bilateral lower extremity debridement. A left dorsal aspect of foot was found to have a large abscess. Cultures were obtained and are currently pending. Patient overall is doing well. No complaints. He's afebrile. Infectious disease is following. He remains on IV antibiotics. Physical therapy is on consult. Objective - Vital Signs Vital signs: Vital Signs Temp 98.2 F 07/12/22 08:00 Pulse 86 07/12/22 08:00 Resp 16 07/12/22 08:00 BP 118/70 07/12/22 08:00 Pulse Ox 98 07/12/22 08:00 FiO2 Intake & Output 07/11/22 07/12/22 07/12/22 18:59 06:59 18:59 Intake Total 550 Output Total 11 300 Balance 539 -300 Intake: IV 550 Output: Urine 1 300 Estimated Blood Loss 10 Other: Voiding Method Urinal # Bowel Movements 2 - Exam General appearance: The patient is alert, oriented, appears in no acute distress. HET: Head is normocephalic and atraumatic. Pupils are equal and reactive. Neck: Supple without lymphadenopathy. Trachea midline. No audible carotid bruit. Extremities: Bilateral lower extremity edema, redness up to patient's rivas bilaterally. Edema improving. Right lower extremity multiple wounds debrided with pink healthy tissue, heel debridement with serosanguineous drainage. Left foot dorsum aspect abscess with iodoform packing. Packing removed and repacked. Bilateral lower extremity ulcers with the absorptive silver. Neurological: No focal deficits. Patient with decreased strength and difficulty with moving extremities. - Labs CBC & Chem 7: 07/12/22 08:35 07/12/22 08:35 Labs: Abnormal Lab Results - Last 24 Hours (Table) 07/11/22 07/11/22 07/12/22 Range/Units 16:52 21:10 06:56 WBC (3.8-10.6) k/uL RBC (4.30-5.90) m/uL Hgb (13.0-17.5) gm/dL Hct (39.0-53.0) % Sodium (137-145) mmol/L Creatinine (0.66-1.25) mg/dL Glucose (74-99) mg/dL POC Glucose (mg/dL) 118 H 129 H 64 L (70-110) mg/dL Calcium (8.4-10.2) mg/dL 07/12/22 07/12/22 07/12/22 Range/Units 08:35 08:35 11:19 WBC 14.5 H (3.8-10.6) k/uL RBC 3.99 L (4.30-5.90) m/uL Hgb 12.7 L (13.0-17.5) gm/dL Hct 37.5 L (39.0-53.0) % Sodium 135 L (137-145) mmol/L Creatinine 0.54 L (0.66-1.25) mg/dL Glucose 138 H (74-99) mg/dL POC Glucose (mg/dL) 209 H (70-110) mg/dL Calcium 7.8 L (8.4-10.2) mg/dL Microbiology - Last 24 Hours (Table) 07/11/22 15:06 Gram Stain - Preliminary Foot - Left Wound Culture - Preliminary 07/11/22 15:06 Anaerobic Culture - Preliminary Foot - Left 07/09/22 11:33 Blood Culture - Preliminary Blood No Growth after 48 hours 07/09/22 11:33 Blood Culture - Preliminary Blood No Growth after 48 hours 07/09/22 11:33 Gram Stain - Final Foot - Right Wound Culture - Final Beta Hemolytic Strep Group G Beta Hemolytic Strep Group G#2 07/09/22 11:33 Gram Stain - Final Foot - Left Wound Culture - Final Beta Hemolytic Strep Group G Beta Hemolytic Strep Group G#2 Assessment and Plan Assessment: 1. Left foot abscess status post surgical I&D 2. Bilateral lower extremity cellulitis with diabetic ulcers status post surgical debridement 3. Venous insufficiency 4. Bilateral lower extremity edema 5. Diabetic ketoacidosis 6. Hyponatremia 7. Hyperkalemia 8. Acute kidney injury Plan: 1. Patient may have consistent carbohydrate diet 2. Await wound culture results 3. Continue with recommendations from infectious disease on antibiotics 4. Consult with wound care completed, patient to follow-up after discharge 5. Offload heel pressure, please elevate lower extremities and apply compression for edema 6. Silvadene cream to bilateral lower extremities Thank you for this consultation, we will continue to follow The impression and plan of care has been dictated as directed. Dr. Mayer I performed a history and examination of this patient, discussed the same with the dictator. I agree with the dictator's note ,documented as a scribe. Any additional findings or plans will be noted.
--- NOTE | 2022-07-12 13:20 | P.PN ---
Subjective Progress Note Date: 07/12/22 (delayed charting seen at 1030) Patient is a 67-year-old male who does not frequently follow-up with physicians with a history of hypertension, borderline dyslipidemia, and osteoarthritis who presented to the ER with complaints of bilateral lower extremity redness. The ER he underwent an extensive evaluation. On arrival he was slightly tachycardic. He underwent an extensive laboratory evaluation which was normal for white count of 75, sodium 125, potassium 5.6, chloride 89, carbon dioxide 8, anion gap 28, BUN 43, creatinine 1.46, blood glucose 754, lactic acid 6.7. Urinalysis showed 2+ ketones and was acetone positive. He was started on IV fluids, antibiotics, and in insulin drip. Critical care and vascular surgery were consulted. His gap closed overnight on 07/09/22 and he was transitioned off the insulin gtt and onto subcutaneous insulin. Vascular surgery did recommend debridement which was completed on 07/11/22 Patient seen and examined at bedside. Feeling better and like he can think better today, no chest pain, no shortness of breath, no diarrhea. No pain in feet. General: nontoxic, no distress, appears at stated age Derm: Right lower extremity with erythema extending from the toes to ankle skin sloughing, and multiple areas of ulceration. Left lower extremity with erythema from tip of the toes to ankle which also shows diffuse erythema with skin sloughing and ulcerations as well ulcer of dorsum on 1st metatarsal- dressing being changed by vascular at this time Head: atraumatic, normocephalic, symmetric Eyes: EOMI, no lid lag, anicteric sclera, proptosis Mouth: no lip lesion, mucus membranes moist Cardiovascular: S1S2 reg, + murmur, positive posterior tibial pulse bilateral, Lungs: Decreased bs bilateral, no rhonchi, no rales , no accessory muscle use Abdominal: soft, nontender to palpation, no guarding, no appreciable organomegaly Ext: no gross muscle atrophy, no edema, no contractures Neuro: CN II-XI grossly intact, no focal neuro deficits Psych: Alert, oriented, appropriate affect Assessment/Plan: Newly discovered DM 2 DKA, resolved - SSI - fixed dose and levemir decreased due to hypoglycemia morning of 07/12/22 - follow BS - dietitan consult - A1C 14.1 Bilateral lower extremity cellulitis with ulceration and severe sepsis consisten t with wet gangrene- Betahemolytic strep venous insufficiency Left foot abscess -Continue with Unasyn -ID recs -vascular surgery recs s/p debridement and drainage of left foot abscess 07/11/22 -MARGARETH 1.19,1.12 - wound care recs Anemia, stable - follow CBC - suspect dilutional due to IVF - no indication for transfusion HTN hx - follow BP Obesity with BMI 36.4 - structured outpatient weight loss Acute kidney injury, resolved Lactic acid 6.7 possibly secondary to sepsis versus contraction from DKA, resolved Pseudo-hyponatremia, resolved Hyperkalemia, resolved Hypokalemia, improved Hyponatemia, improved DVT prophylaxis: Lovenox Discussed with: Patient, nursing Anticipated discharge date: on friday07/15/[address]: [facility] A total of 32 minutes was spent on the care of this complex patient more than 50% of the time was spent in counseling and care coordination. Active Medications Generic Name Dose Route Start Last Admin Trade Name Freq PRN Reason Stop Dose Admin Acetaminophen 650 mg 07/09/22 15:37 Acetaminophen Tab 325 Mg Tab PO Q6HR PRN Mild Pain or Fever > 100.5 Hydrocodone Bitart/Acetaminophen 1 each 07/09/22 15:37 Hydrocodone/Apap 5-325mg 1 Each Tab PO Q4HR PRN Moderate Pain Enoxaparin Sodium 40 mg 07/10/22 09:00 07/12/22 09:58 Enoxaparin 40 Mg/0.4 Ml Syringe SQ 40 mg DAILY MICHAEL Administration Ampicillin Sodium/Sulbactam 100 mls @ 200 mls/hr 07/09/22 16:00 07/12/22 09:59 Sodium 3 gm/ Sodium Chloride IVPB 200 mls/hr Q8HR MICHAEL Administration Protocol Insulin Aspart 0 unit 07/10/22 07:30 07/12/22 08:49 Insulin Aspart (Novolog) 100 Unit/Ml Vial SQ Not Given ACHS [facility] Protocol Insulin Aspart 4 unit 07/12/22 12:30 Insulin Aspart (Novolog) 100 Unit/Ml Vial SQ AC-TID MICHAEL Insulin Detemir 10 unit 07/12/22 21:00 Insulin Detemir (Levemir) 100 Unit/Ml Syr SQ HS MICHAEL Melatonin 3 mg 07/09/22 15:37 Melatonin 3 Mg Tablet PO HS PRN Insomnia Miscellaneous Information 1 each 07/09/22 15:38 Magnesium Replacement Protocol 1 Each [facility] MISCELLANE DAILY PRN Per Protocol Protocol Miscellaneous Information 1 each 07/11/22 12:30 Potassium Replacement Protocol 1 Each [facility] MISCELLANE DAILY PRN Per Protocol Protocol Morphine Sulfate 4 mg 07/09/22 15:37 Morphine Sulfate 4 Mg/Ml Syringe IVP Q4HR PRN Severe Pain Naloxone HCl 0.2 mg 07/09/22 15:36 Naloxone 0.4 Mg/Ml 1 Ml Vial IV Q2M PRN Opioid Reversal Ondansetron HCl 4 mg 07/09/22 15:37 07/11/22 13:04 Ondansetron 4 Mg/2 Ml Vial IVP 4 mg Q8HR PRN Administration Nausea And Vomiting Silver Sulfadiazine 1 applic 07/12/22 11:00 Silver Sulfadiazine 1% Cream 25 Gm Tube TOPICAL DAILY MICHAEL Protocol Objective - Vital Signs Vital signs: Vital Signs Temp 98.2 F 07/12/22 08:00 Pulse 86 07/12/22 08:00 Resp 16 07/12/22 08:00 BP 118/70 07/12/22 08:00 Pulse Ox 98 07/12/22 08:00 FiO2 Intake & Output 07/11/22 07/12/22 07/12/22 18:59 06:59 18:59 Intake Total 550 Output Total 11 300 Balance 539 -300 Intake: IV 550 Output: Urine 1 300 Estimated Blood Loss 10 Other: Voiding Method Urinal # Bowel Movements 2 - Labs CBC & Chem 7: 07/12/22 08:35 07/12/22 08:35 Labs: Abnormal Lab Results - Last 24 Hours (Table) 07/11/22 07/11/22 07/12/22 Range/Units 16:52 21:10 06:56 WBC (3.8-10.6) k/uL RBC (4.30-5.90) m/uL Hgb (13.0-17.5) gm/dL Hct (39.0-53.0) % Sodium (137-145) mmol/L Creatinine (0.66-1.25) mg/dL Glucose (74-99) mg/dL POC Glucose (mg/dL) 118 H 129 H 64 L (70-110) mg/dL Calcium (8.4-10.2) mg/dL 08/11/2107/12/22 07/12/22 Range/Units 08:35 08:35 11:19 WBC 14.5 H (3.8-10.6) k/uL RBC 3.99 L (4.30-5.90) m/uL Hgb 12.7 L (13.0-17.5) gm/dL Hct 37.5 L (39.0-53.0) % Sodium 135 L (137-145) mmol/L Creatinine 0.54 L (0.66-1.25) mg/dL Glucose 138 H (74-99) mg/dL POC Glucose (mg/dL) 209 H (70-110) mg/dL Calcium 7.8 L (8.4-10.2) mg/dL Microbiology - Last 24 Hours (Table) 07/11/22 15:06 Gram Stain - Preliminary Foot - Left Wound Culture - Preliminary 07/11/22 15:06 Anaerobic Culture - Preliminary Foot - Left 07/09/22 11:33 Blood Culture - Preliminary Blood No Growth after 48 hours 07/09/22 11:33 Blood Culture - Preliminary Blood No Growth after 48 hours 07/09/22 11:33 Gram Stain - Final Foot - Right Wound Culture - Final Beta Hemolytic Strep Group G Beta Hemolytic Strep Group G#2 07/09/22 11:33 Gram Stain - Final Foot - Left Wound Culture - Final Beta Hemolytic Strep Group G Beta Hemolytic Strep Group G#2
[2022-07-12 16:26] LABS: Glucose,Whole Blood 270 mg/dL (70-110)
[2022-07-12] MEDS: VANCOMYCIN 1,500 MG in SODIUM CHLORIDE 0.9% 250 ML IVPB SCH (20:46)
[2022-07-12 21:06] LABS: Glucose,Whole Blood 215 mg/dL (70-110)
[2022-07-12] MEDS: INSULIN DETEMIR (LEVEMIR) 100 UNIT/ML SYR SQ SCH (21:45)
[2022-07-13] MEDS: AMPICILLIN-SULBACTAM 3 GM in SODIUM CHLORIDE 0.9% 100 ML IVPB SCH ×4 (05:27→23:37)
--- NOTE | 2022-07-13 07:13 | P.PN ---
Subjective Progress Note Date: 07/12/22 Principal diagnosis: Diabetic foot abscess and cellulitis Patient is a 67 year old male with a past medical history significant for diabetes mellitus presented to hospital with worsening pain swelling redness and drainage from his bilateral feet area patient has been diagnosed with a cellulitis/abscess. Patient is status post surgical debridement and drainage of abscess completed on 07/11/2022 On today's evaluation that is 07/12/2022, the patient remains to be afebrile, patient is breathing comfortably on room air, patient denies any worsening pain to the bilateral feet, the patient denies chest pain shortness of breath or cough no abdominal pain or diarrhea Objective - Vital Signs Vital signs: Vital Signs Temp 98 F 07/12/22 16:00 Pulse 77 07/12/22 16:00 Resp 17 07/12/22 16:00 BP 106/69 07/12/22 16:00 Pulse Ox 98 07/12/22 16:00 FiO2 Intake & Output 07/12/22 18:00 Intake Total 1080 Output Total 500 Balance 580 Intake: Oral 1080 Output: Urine 500 Other: # Bowel Movements 2 - Exam GENERAL DESCRIPTION: An elderly male lying in bed in no distress RESPIRATORY SYSTEM: Unlabored breathing , decreased breath sounds at bases HEART: S1 S2 regular rate and rhythm , ABDOMEN: Soft , no tenderness EXTREMITIES: Bilateral feet wounds are currently dressed no drainage on the dressing - Labs CBC & Chem 7: 07/12/22 08:35 07/12/22 08:35 Labs: Abnormal Lab Results - Last 24 Hours (Table) 07/12/22 07/12/22 07/12/22 Range/Units 08:35 08:35 11:19 WBC 14.5 H (3.8-10.6) k/uL RBC 3.99 L (4.30-5.90) m/uL Hgb 12.7 L (13.0-17.5) gm/dL Hct 37.5 L (39.0-53.0) % Sodium 135 L (137-145) mmol/L Creatinine 0.54 L (0.66-1.25) mg/dL Glucose 138 H (74-99) mg/dL POC Glucose (mg/dL) 209 H (70-110) mg/dL Calcium 7.8 L (8.4-10.2) mg/dL 07/12/22 07/12/22 Range/Units 16:25 20:34 WBC (3.8-10.6) k/uL RBC (4.30-5.90) m/uL Hgb (13.0-17.5) gm/dL Hct (39.0-53.0) % Sodium (137-145) mmol/L Creatinine (0.66-1.25) mg/dL Glucose (74-99) mg/dL POC Glucose (mg/dL) 270 H 215 H (70-110) mg/dL Calcium (8.4-10.2) mg/dL Microbiology - Last 24 Hours (Table) 07/11/22 15:06 Gram Stain - Preliminary Foot - Left Wound Culture - Preliminary Beta Hemolytic Strep Group G Gram Neg Bacilli 07/09/22 11:33 Blood Culture - Preliminary Blood No Growth after 72 hours 07/09/22 11:33 Blood Culture - Preliminary Blood No Growth after 72 hours Assessment and Plan (1) Bilateral lower leg cellulitis Current Visit: Yes Status: Acute Code(s): L03.116 - CELLULITIS OF LEFT LOWER LIMB; L03.115 - CELLULITIS OF RIGHT LOWER LIMB SNOMED Code(s): 960604502 (2) Diabetic ulcer of both feet Current Visit: Yes Status: Acute Code(s): E11.621 - TYPE 2 DIABETES MELLITUS WITH FOOT ULCER; L97.519 - NON-PRS CHRONIC ULCER OTH PRT RIGHT FOOT W UNSP SE VERITY; L97.529 - NON-PRESSURE CHRONIC ULCER OTH PRT LEFT FOOT W UNSP SEVERITY SNOMED Code(s): 100540244 Plan: 1patient with bilateral lower extremity cellulitis in this patient did have superficial ulceration some slough tissue and surrounding redness likely from gram-positive skin duane underlying gram-negative infection not done excluded in this patient with uncontrolled diabetes and diabetic ketoacidosis. 2patient is status post surgical debridement and deep culture completed on 07/11/2022 with a culture is currently pending 3patient to continue with Unasyn while waiting for the cultures to finalize and monitor clinical course closely
[2022-07-13 09:16] LABS: Glucose,Whole Blood 218 mg/dL (70-110)
[2022-07-13] MEDS: INSULIN ASPART (NovoLOG) 100 UNIT/ML VIAL SQ SCH ×7 (09:59→21:11)
[2022-07-13] MEDS: ENOXAPARIN 40 MG/0.4 ML SYRINGE SQ SCH (10:00)
--- NOTE | 2022-07-13 11:25 | P.PN ---
Subjective Progress Note Date: 07/13/22 Patient is a 67-year-old male who does not frequently follow-up with physicians with a history of hypertension, borderline dyslipidemia, and osteoarthritis who presented to the ER with complaints of bilateral lower extremity redness. The ER he underwent an extensive evaluation. On arrival he was slightly tachycardic. He underwent an extensive laboratory evaluation which was normal for white count of 75, sodium 125, potassium 5.6, chloride 89, carbon dioxide 8, anion gap 28, BUN 43, creatinine 1.46, blood glucose 754, lactic acid 6.7. Urinalysis showed 2+ ketones and was acetone positive. He was started on IV fluids, antibiotics, and in insulin drip. Critical care and vascular surgery were consulted. His gap closed overnight on 07/09/22 and he was transitioned off the insulin gtt and onto subcutaneous insulin. Vascular surgery did recommend debridement which was completed on 07/11/22 Patient seen this morning and he had no acute complaints. No acute issues overnight. Objective - Vital Signs Vital signs: Vital Signs Temp 97.5 F L 07/13/22 08:10 Pulse 86 07/13/22 08:10 Resp 18 07/13/22 08:10 BP 157/89 07/13/22 08:10 Pulse Ox 99 07/13/22 08:10 FiO2 Intake & Output 07/12/22 07/13/22 07/13/22 18:59 06:59 18:59 Intake Total 1080 Output Total 500 500 100 Balance 580 -500 -100 Intake: Oral 1080 Output: Urine 500 500 100 Other: # Bowel Movements 2 - Exam General examination - Alert and Oriented 3 in NAD Heart - + S1S2 no murmurs Lungs - Clear to auscultation Abdomen soft NT ND +ve BS Extremities - No edema, bilateral lower extremity bandages are intact and dry LIABILITY CLAIMS EXAMINER - Moving all 4 extremities spontaneously Psych - Calm and cooperative - Labs CBC & Chem 7: 07/12/22 08:35 07/12/22 08:35 Labs: Abnormal Lab Results - Last 24 Hours (Table) 07/12/22 07/12/22 07/13/22 Range/Units 16:25 20:34 09:13 POC Glucose (mg/dL) 270 H 215 H 218 H (70-110) mg/dL Microbiology - Last 24 Hours (Table) 07/11/22 15:06 Gram Stain - Preliminary Foot - Left Wound Culture - Preliminary Beta Hemolytic Strep Group G Gram Neg Bacilli 07/09/22 11:33 Blood Culture - Preliminary Blood No Growth after 72 hours 07/09/22 11:33 Blood Culture - Preliminary Blood No Growth after 72 hours Assessment and Plan Assessment: Newly discovered DM 2 DKA, resolved - SSI - fixed dose and levemir decreased due to hypoglycemia morning of 07/12/22 - follow BS - dietitan consult - A1C 14.1 Bilateral lower extremity cellulitis with ulceration and severe sepsis consistent with wet gangrene- Betahemolytic strep venous insufficiency Left foot abscess -Continue with Unasyn -ID recs -vascular surgery recs s/p debridement and drainage of left foot abscess 07/11/22 -MARGARETH 1.19,1.12 - wound care recs Anemia, stable - follow CBC - suspect dilutional due to IVF - no indication for transfusion HTN hx - follow BP Obesity with BMI 36.4 - structured outpatient weight loss Acute kidney injury, resolved Lactic acid 6.7 possibly secondary to sepsis versus contraction from DKA, resolved Pseudo-hyponatremia, resolved Hyperkalemia, resolved Hypokalemia, improved Hyponatemia, improved DVT prophylaxis: Lovenox Discussed with: Patient, nursing Anticipated discharge date: on friday07/15/[address]: [facility]
[2022-07-13 11:33] LABS: Glucose,Whole Blood 179 mg/dL (70-110)
[2022-07-13] MEDS: HYDROcodone/APAP 5-325MG 1 EACH TAB PO PRN ×2 (14:30→20:07)
[2022-07-13 16:21] LABS: Glucose,Whole Blood 203 mg/dL (70-110)
--- NOTE | 2022-07-13 17:26 | P.PN ---
Subjective Progress Note Date: 07/13/22 Principal diagnosis: lower extremity cellulitis and diabetic ulcers patient seen and examined. Doing well today. Pain controlled. Awating cultures. Remains on IV abx. Denies any fevers, chills, chest pain or shortness of breath. Objective - Vital Signs Vital signs: Vital Signs Temp 99.5 F 07/13/22 13:44 Pulse 91 07/13/22 13:44 Resp 17 07/13/22 13:44 BP 132/56 07/13/22 13:44 Pulse Ox 96 07/13/22 13:44 FiO2 Intake & Output 07/12/22 07/13/22 07/13/22 18:59 06:59 18:59 Intake Total 1080 Output Total 500 500 400 Balance 580 -500 -400 Intake: Oral 1080 Output: Urine 500 500 400 Other: # Bowel Movements 2 1 - Exam bilateral lower extremity wound dressings intact. Some drainage noted. Moderate edema noted. - Constitutional General appearance: Present: morbidly obese - Respiratory Respiratory: bilateral: CTA - Cardiovascular Rhythm: regular - Psychiatric Psychiatric: Present: A&O x's 3, appropriate affect, intact judgment & insight - Labs CBC & Chem 7: 07/12/22 08:35 07/12/22 08:35 Labs: Abnormal Lab Results - Last 24 Hours (Table) 07/12/22 07/13/22 07/13/22 Range/Units 20:34 09:13 11:31 POC Glucose (mg/dL) 215 H 218 H 179 H (70-110) mg/dL 07/13/22 Range/Units 16:20 POC Glucose (mg/dL) 203 H (70-110) mg/dL Microbiology - Last 24 Hours (Table) 07/09/22 11:33 Blood Culture - Preliminary Blood No Growth after 96 hours 07/09/22 11:33 Blood Culture - Preliminary Blood No Growth after 96 hours 07/11/22 15:06 Gram Stain - Preliminary Foot - Left Wound Culture - Preliminary Beta Hemolytic Strep Group G Gram Neg Bacilli Assessment and Plan Assessment: 1. Left foot abscess s/p I&D 2. Bilateral lower extremity cellulitis with diabetic ulcers s/p debridement 3. Venous insuffiency 4. Diabetic ketoacidosis 5. JACK Plan: Continue local wound care with Silvadene cream Offload heels, elevate and compress lower extremities. Continue antibiotics.
[2022-07-13 20:48] LABS: Glucose,Whole Blood 196 mg/dL (70-110)
[2022-07-13] MEDS: INSULIN DETEMIR (LEVEMIR) 100 UNIT/ML SYR SQ SCH (21:55)
[2022-07-14 06:47] LABS: Glucose,Whole Blood 82 mg/dL (70-110)
[2022-07-14] MEDS: INSULIN ASPART (NovoLOG) 100 UNIT/ML VIAL SQ SCH ×7 (06:57→21:42)
[2022-07-14] MEDS: AMPICILLIN-SULBACTAM 3 GM in SODIUM CHLORIDE 0.9% 100 ML IVPB SCH ×2 (07:07→15:27)
[2022-07-14] MEDS: ENOXAPARIN 40 MG/0.4 ML SYRINGE SQ SCH (07:08)
[2022-07-14] MEDS: HYDROcodone/APAP 5-325MG 1 EACH TAB PO PRN ×2 (09:26→15:43)
--- NOTE | 2022-07-14 10:24 | P.PN ---
Subjective Progress Note Date: 07/13/22 Principal diagnosis: Diabetic foot abscess and cellulitis Patient is a 67 year old male with a past medical history significant for diabetes mellitus presented to hospital with worsening pain swelling redness and drainage from his bilateral feet area patient has been diagnosed with a cellulitis/abscess. Patient is status post surgical debridement and drainage of abscess completed on 07/11/2022 On today's evaluation that is 07/13/2022, the patient continues to be afebrile, patient is breathing comfortably on room air, patient pain to the bilateral feet is currently controlled, the patient denies chest pain shortness of breath or cough no abdominal pain or diarrhea Objective - Vital Signs Vital signs: Vital Signs Temp 99.5 F 07/13/22 13:44 Pulse 91 07/13/22 13:44 Resp 17 07/13/22 13:44 BP 132/56 07/13/22 13:44 Pulse Ox 96 07/13/22 13:44 FiO2 Intake & Output 07/12/22 07/13/22 07/13/22 18:59 06:59 18:59 Intake Total 1080 Output Total 500 500 400 Balance 580 -500 -400 Intake: Oral 1080 Output: Urine 500 500 400 Other: # Bowel Movements 2 1 - Exam GENERAL DESCRIPTION: An elderly male lying in bed in no distress RESPIRATORY SYSTEM: Unlabored breathing , decreased breath sounds at bases HEART: S1 S2 regular rate and rhythm , ABDOMEN: Soft , no tenderness EXTREMITIES: Bilateral feet wounds are currently dressed no drainage on the dressing - Labs CBC & Chem 7: 07/12/22 08:35 07/12/22 08:35 Labs: Abnormal Lab Results - Last 24 Hours (Table) 07/12/22 07/13/22 07/13/22 Range/Units 20:34 09:13 11:31 POC Glucose (mg/dL) 215 H 218 H 179 H (70-110) mg/dL 07/13/22 Range/Units 16:20 POC Glucose (mg/dL) 203 H (70-110) mg/dL Microbiology - Last 24 Hours (Table) 07/09/22 11:33 Blood Culture - Preliminary Blood No Growth after 96 hours 07/09/22 11:33 Blood Culture - Preliminary Blood No Growth after 96 hours 07/11/22 15:06 Gram Stain - Preliminary Foot - Left Wound Culture - Preliminary Beta Hemolytic Strep Group G Gram Neg Bacilli Assessment and Plan (1) Bilateral lower leg cellulitis Current Visit: Yes Status: Acute Code(s): L03.116 - CELLULITIS OF LEFT LOWER LIMB; L03.115 - CELLULITIS OF RIGHT LOWER LIMB SNOMED Code(s): 301554974 (2) Diabetic ulcer of both feet Current Visit: Yes Status: Acute Code(s): E11.621 - TYPE 2 DIABETES MELLITUS WITH FOOT ULCER; L97.519 - NON-PRS CHRONIC ULCER OTH PRT RIGHT FOOT W UNSP SEVERITY; L97.529 - NON-PRESSURE CHRONIC ULCER OTH PRT LEFT FOOT W UNSP SEVERITY SNOMED Code(s): 525300759 Plan: 1patient with bilateral lower extremity cellulitis in this patient did have superficial ulceration some slough tissue and surrounding redness likely from gram-positive skin duane underlying gram-negative infection not done excluded in this patient with uncontrolled diabetes and diabetic ketoacidosis. 2patient is status post surgical debridement and deep culture completed on 07/11/2022 with a culture growing strep and gram-negative with the ID and sensitivity is currently pending on the gram-negative 3patient to continue with Unasyn while waiting for the cultures to finalize and continue wound care as ordered Time with Patient: Less than 30
[2022-07-14 11:26] LABS: Glucose,Whole Blood 182 mg/dL (70-110)
--- NOTE | 2022-07-14 11:31 | P.PN ---
Subjective Progress Note Date: 07/14/22 Patient is a 67-year-old male who does not frequently follow-up with physicians with a history of hypertension, borderline dyslipidemia, and osteoarthritis who presented to the ER with complaints of bilateral lower extremity redness. The ER he underwent an extensive evaluation. On arrival he was slightly tachycardic. He underwent an extensive laboratory evaluation which was normal for white count of 75, sodium 125, potassium 5.6, chloride 89, carbon dioxide 8, anion gap 28, BUN 43, creatinine 1.46, blood glucose 754, lactic acid 6.7. Urinalysis showed 2+ ketones and was acetone positive. He was started on IV fluids, antibiotics, and in insulin drip. Critical care and vascular surgery were consulted. His gap closed overnight on 07/09/22 and he was transitioned off the insulin gtt and onto subcutaneous insulin. Vascular surgery did recommend debridement which was completed on 07/11/22 Patient denying any acute complaints. He states that he is looking forward to going to a custodial facility. Patient states that he is motivated to learn how to take insulin shots and also how to measure his blood glucose. 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 spontaneously Psych - Calm and cooperative - Labs CBC & Chem 7: 07/12/22 08:35 07/12/22 08:35 Labs: Abnormal Lab Results - Last 24 Hours (Table) 07/13/22 07/13/22 07/13/22 Range/Units 11:31 16:20 20:46 POC Glucose (mg/dL) 179 H 203 H 196 H (70-110) mg/dL 07/14/22 Range/Units 11:24 POC Glucose (mg/dL) 182 H (70-110) mg/dL Microbiology - Last 24 Hours (Table) 07/11/22 15:06 Anaerobic Culture - Preliminary Foot - Left 07/11/22 15:06 Gram Stain - Final Foot - Left Wound Culture - Final Beta Hemolytic Strep Group G Citrobacter koseri 07/09/22 11:33 Blood Culture - Preliminary Blood No Growth after 96 hours 07/09/22 11:33 Blood Culture - Preliminary Blood No Growth after 96 hours Assessment and Plan Assessment: Newly discovered DM 2 DKA, resolved - SSI - fixed dose and levemir decreased due to hypoglycemia morning of 07/12/22 - follow BS - dietitan consult - A1C 14.1 Bilateral lower extremity cellulitis with ulceration and severe sepsis consistent with wet gangrene- Betahemolytic strep venous insufficiency Left foot abscess -Continue with Unasyn -ID recs -vascular surgery recs s/p debridement and drainage of left foot abscess 07/11/22 -MARGARETH 1.19,1.12 - wound care recs Anemia, stable - follow CBC - suspect dilutional due to IVF - no indication for transfusion HTN hx - follow BP Obesity with BMI 36.4 - structured outpatient weight loss Acute kidney injury, resolved Lactic acid 6.7 possibly secondary to sepsis versus contraction from DKA, resolved Pseudo-hyponatremia, resolved Hyperkalemia, resolved Hypokalemia, improved Hyponatemia, improved DVT prophylaxis: Lovenox Discussed with: Patient, nursing Anticipated discharge date: on friday07/15/22. Awaiting for infectious disease to give final antibiotic recommendations Anticipated discharge place: [facility]
--- NOTE | 2022-07-14 12:09 | P.PN ---
Subjective Progress Note Date: 07/14/22 Principal diagnosis: lower extremity cellulitis and diabetic ulcers patient seen and examined. Doing well today and pain is controlled. Still waiting on final abx recommendations. Denies any fevers, chills, chest pain or shortness of breath. Objective - Vital Signs Vital signs: Vital Signs Temp 98.6 F 07/14/22 08:00 Pulse 69 07/14/22 08:00 Resp 16 07/14/22 08:00 BP 135/74 07/14/22 08:00 Pulse Ox 97 07/14/22 08:00 FiO2 Intake & Output 07/13/22 07/14/22 07/14/22 18:59 06:59 18:59 Output Total 400 1000 Balance -400 -1000 Output: Urine 400 1000 Other: Voiding Method Urinal # Bowel Movements 1 - Exam bilateral lower extremity wound dressings intact. Some drainage noted. Moderate edema noted. - EENT Eyes: Present: abnormal pupil, PERRLA - Respiratory Respiratory: bilateral: CTA - Cardiovascular Rhythm: regular - Psychiatric Psychiatric: Present: A&O x's 3, appropriate affect, intact judgment & insight - Labs CBC & Chem 7: 07/12/22 08:35 07/12/22 08:35 Labs: Abnormal Lab Results - Last 24 Hours (Table) 07/13/22 07/13/22 07/14/22 Range/Units 16:20 20:46 11:24 POC Glucose (mg/dL) 203 H 196 H 182 H (70-110) mg/dL Microbiology - Last 24 Hours (Table) 07/11/22 15:06 Anaerobic Culture - Preliminary Foot - Left 07/11/22 15:06 Gram Stain - Final Foot - Left Wound Culture - Final Beta Hemolytic Strep Group G Citrobacter koseri 07/09/22 11:33 Blood Culture - Preliminary Blood No Growth after 96 hours 07/09/22 11:33 Blood Culture - Preliminary Blood No Growth after 96 hours Assessment and Plan Assessment: 1. Left foot abscess s/p I&D 2. Bilateral lower extremity cellulitis with diabetic ulcers s/p debridement 3. Venous insuffiency 4. Diabetic ketoacidosis 5. JACK Plan: Continue local wound care with Silvadene cream Offload heels, elevate and compress lower extremities. Continue antibiotics.
[2022-07-14 16:30] LABS: Glucose,Whole Blood 278 mg/dL (70-110)
[2022-07-14 19:37] LABS: Glucose,Whole Blood 275 mg/dL (70-110)
[2022-07-14] MEDS: INSULIN DETEMIR (LEVEMIR) 100 UNIT/ML SYR SQ SCH (21:42)
[2022-07-15] MEDS: AMPICILLIN-SULBACTAM 3 GM in SODIUM CHLORIDE 0.9% 100 ML IVPB SCH ×3 (00:05→15:55)
[2022-07-15 07:25] LABS: Glucose,Whole Blood 141 mg/dL (70-110)
--- NOTE | 2022-07-15 07:25 | P.PN ---
Subjective Progress Note Date: 07/14/22 Principal diagnosis: Diabetic foot abscess and cellulitis Patient is a 67 year old male with a past medical history significant for diabetes mellitus presented to hospital with worsening pain swelling redness and drainage from his bilateral feet area patient has been diagnosed with a cellulitis/abscess. Patient is status post surgical debridement and drainage of abscess completed on 07/11/2022 On today's evaluation that is 07/14/2022, the patient remains to be afebrile, patient is breathing comfortably on room air, patient pain to the bilateral feet has decreased in intensity, the patient denies chest pain shortness of breath or cough no abdominal pain or diarrhea with antibiotic therapy Objective - Vital Signs Vital signs: Vital Signs Temp 98.7 F 07/14/22 13:42 Pulse 102 H 07/14/22 13:42 Resp 18 07/14/22 13:42 BP 114/68 07/14/22 13:42 Pulse Ox 96 07/14/22 13:42 FiO2 Intake & Output 07/13/22 07/14/22 07/14/22 18:59 06:59 18:59 Output Total 400 1000 600 Balance -400 -1000 -600 Output: Urine 400 1000 600 Other: Voiding Method Urinal # Bowel Movements 1 - Exam GENERAL DESCRIPTION: An elderly male lying in bed in no distress RESPIRATORY SYSTEM: Unlabored breathing , decreased breath sounds at bases HEART: S1 S2 regular rate and rhythm , ABDOMEN: Soft , no tenderness EXTREMITIES: Bilateral feet wounds with minimal slough surrounding swelling redness slightly decreased - Labs CBC & Chem 7: 07/12/22 08:35 07/12/22 08:35 Labs: Abnormal Lab Results - Last 24 Hours (Table) 07/13/22 07/13/22 07/14/22 Range/Units 16:20 20:46 11:24 POC Glucose (mg/dL) 203 H 196 H 182 H (70-110) mg/dL Microbiology - Last 24 Hours (Table) 07/09/22 11:33 Blood Culture - Preliminary Blood No Growth after 120 hours 07/09/22 11:33 Blood Culture - Preliminary Blood No Growth after 120 hours 07/11/22 15:06 Anaerobic Culture - Preliminary Foot - Left 07/11/22 15:06 Gram Stain - Final Foot - Left Wound Culture - Final Beta Hemolytic Strep Group G Citrobacter koseri Assessment and Plan (1) Bilateral lower leg cellulitis Current Visit: Yes Status: Acute Code(s): L03.116 - CELLULITIS OF LEFT LOWER LIMB; L03.115 - CELLULITIS OF RIGHT LOWER LIMB SNOMED Code(s): 340348920 (2) Diabetic ulcer of both feet Current Visit: Yes Status: Acute Code(s): E11.621 - TYPE 2 DIABETES MELLITUS WITH FOOT ULCER; L97.519 - NON-PRS CHRONIC ULCER OTH PRT RIGHT FOOT W UNSP SEVERITY; L97.529 - NON-PRESSURE CHRONIC ULCER OTH PRT LEFT FOOT W UNSP SEVERITY SNOMED Code(s): 988057320 Plan: 1patient with bilateral lower extremity cellulitis in this patient did have superficial ulceration some slough tissue and surrounding redness likely from gram-positive skin duane underlying gram-negative infection not done excluded in this patient with uncontrolled diabetes and diabetic ketoacidosis. 2patient is status post surgical debridement and deep culture completed on 07/11/2022 with a culture growing strep and Citrobacter both of pathogen sensitive to Unasyn 3patient has shown some clinical improvement and will continue with Unasyn, keeping in mind extensive infection may benefit from IV antibiotic on discharge Time with Patient: Less than 30
[2022-07-15] MEDS: INSULIN ASPART (NovoLOG) 100 UNIT/ML VIAL SQ SCH ×6 (07:27→16:51)
[2022-07-15 07:39] VITALS: PULSE 91
[2022-07-15] MEDS: ENOXAPARIN 40 MG/0.4 ML SYRINGE SQ SCH (07:57)
[2022-07-15] MEDS: HYDROcodone/APAP 5-325MG 1 EACH TAB PO PRN ×2 (07:58→15:56)
--- NOTE | 2022-07-15 10:06 | P.PN ---
Subjective Progress Note Date: 07/15/22 Principal diagnosis: Lower extremity cellulitis, diabetic ulcers Patient is seen and examined for follow-up for lower extremity cellulitis and diabetic ulcers. He is status post debridement. He states pain is well managed. Denies any fevers or chills. He is resting comfortably. Plan is for discharge to rehab. Lower extremity swelling has improved. He's been afebrile. Objective - Vital Signs Vital signs: Vital Signs Temp 98.2 F 07/15/22 07:38 Pulse 91 07/15/22 07:57 Resp 18 07/15/22 07:57 BP 139/72 07/15/22 07:38 Pulse Ox 97 07/15/22 07:38 FiO2 Intake & Output 07/14/22 07/15/22 07/15/22 18:59 06:59 18:59 Intake Total 120 Output Total 1500 1000 Balance -1500 -1000 120 Intake: Oral 120 Output: Urine 1500 1000 Other: Voiding Method Urinal External Catheter - Exam General appearance: The patient is alert, oriented, appears in no acute distress. HET: Head is normocephalic and atraumatic. Pupils are equal and reactive. Neck: Supple without lymphadenopathy. Trachea midline. No audible carotid bruit. Extremities: Bilateral lower extremity edema and redness improved. Dressings a re clean dry and intact. Neurological: No focal deficits. Patient with decreased strength and difficulty with moving extremities. - Labs CBC & Chem 7: 07/12/22 08:35 07/12/22 08:35 Labs: Abnormal Lab Results - Last 24 Hours (Table) 07/14/22 07/14/22 07/14/22 Range/Units 11:24 16:28 19:36 POC Glucose (mg/dL) 182 H 278 H 275 H (70-110) mg/dL 07/15/22 Range/Units 07:14 POC Glucose (mg/dL) 141 H (70-110) mg/dL Microbiology - Last 24 Hours (Table) 07/09/22 11:33 Blood Culture - Preliminary Blood No Growth after 120 hours 07/09/22 11:33 Blood Culture - Preliminary Blood No Growth after 120 hours Assessment and Plan Assessment: 1. Left foot abscess status post surgical I&D 2. Bilateral lower extremity cellulitis with diabetic ulcers status post surgical debridement 3. Venous insufficiency 4. Bilateral lower extremity edema 5. Diabetic ketoacidosis 6. Hyponatremia 7. Hyperkalemia 8. Acute kidney injury Plan: 1. Patient may have consistent carbohydrate diet 2. Continue with recommendations from infectious disease on antibiotics 3. Consult with wound care completed, patient to follow-up after discharge 5. Offload heel pressure, please elevate lower extremities and apply compression for edema 6. Silvadene cream to bilateral lower extremities Thank you for this consultation, the patient is cleared for discharge from vascular surgery. The impression and plan of care has been dictated as directed. Dr. Mayer I performed a history and examination of this patient, discussed the same with the dictator. I agree with the dictator's note ,documented as a scribe. Any additional findings or plans will be noted.
[2022-07-15 11:27] LABS: Glucose,Whole Blood 203 mg/dL (70-110)
--- NOTE | 2022-07-15 12:23 | P.PN ---
Subjective Progress Note Date: 07/15/22 Patient denies any acute complaints. No other acute issues overnight. Patient is looking forward to going to rehab. I discussed with showcase trimmer and will waiting on prior authorization. Also discussed with infectious disease was recommending tumor weeks of IV Unasyn. I will order for a midline. Objective - Vital Signs Vital signs: Vital Signs Temp 98.2 F 07/15/22 07:38 Pulse 91 07/15/22 07:57 Resp 18 07/15/22 07:57 BP 139/72 07/15/22 07:38 Pulse Ox 97 07/15/22 07:38 FiO2 Intake & Output 07/14/22 07/15/22 07/15/22 18:59 06:59 18:59 Intake Total 120 Output Total 1500 1000 Balance -1500 -1000 120 Intake: Oral 120 Output: Urine 1500 1000 Other: Voiding Method Urinal External Catheter - Exam General examination - Alert and Oriented 3 in NAD Heart - + S1S2 no murmurs Lungs - Clear to auscultation Abdomen soft NT ND +ve BS Extremities - No edema, bilateral lower extremity bandages are intact and dry PERSONAL CARE AID - Moving all 4 extremities spontaneously Psych - Calm and cooperative - Labs CBC & Chem 7: 07/12/22 08:35 07/12/22 08:35 Labs: Abnormal Lab Results - Last 24 Hours (Table) 07/14/22 07/14/22 07/15/22 Range/Units 16:28 19:36 07:14 POC Glucose (mg/dL) 278 H 275 H 141 H (70-110) mg/dL 07/15/22 Range/Units 11:14 POC Glucose (mg/dL) 203 H (70-110) mg/dL Microbiology - Last 24 Hours (Table) 07/09/22 11:33 Blood Culture - Preliminary Blood No Growth after 120 hours 07/09/22 11:33 Blood Culture - Preliminary Blood No Growth after 120 hours Assessment and Plan Assessment: Newly discovered DM 2 DKA, resolved - SSI - fixed dose and levemir decreased due to hypoglycemia morning of 07/12/22 - follow BS -> acceptable - dietitan consult - A1C 14.1 -Patient will be discharged to rehab where he can be educated on administering insulin and also how to check his blood glucose. Bilateral lower extremity cellulitis with ulceration and severe sepsis consistent with wet gangrene- Betahemolytic strep venous insufficiency Left foot abscess -Continue with Unasyn -ID recs: Infectious disease recommends 2 more weeks of IV Unasyn. Midline ordered -vascular surgery recs s/p debridement and drainage of left foot abscess 07/11/22 -MARGARETH 1.19,1.12 - wound care recs Anemia, stable -Hemoglobin stable HTN hx - follow BP Obesity with BMI 36.4 - structured outpatient weight loss Acute kidney injury, resolved Lactic acid 6.7 possibly secondary to sepsis versus contraction from DKA, resolved Pseudo-hyponatremia, resolved Hyperkalemia, resolved Hypokalemia, improved Hyponatemia, improved DVT prophylaxis: Lovenox Discussed with: Patient, nursing Anticipated discharge date: Patient medically stable for discharge. Awaiting for prior authorization Anticipated discharge place: [facility]
--- NOTE | 2022-07-15 14:16 | P.DS ---
Providers Date of admission: 07/09/22 13:13 Expected date of discharge: 07/15/22 Attending physician: Pallavi Ureña DO Consults: 07/09/22 15:05 Consult Physician Routine Consulting Provider: Valorie Fulton Consult Reason/Comments: DKA, ICU Do you want consulting provider notified?: Already Contacted 07/09/22 15:13 Consult Physician Routine Consulting Provider: Altagraica Richardson Consult Reason/Comments: cellulitis, lower extremity diabetic ulcers Do you want consulting provider notified?: Yes 07/09/22 15:18 Consult Physician Routine Consulting Provider: Noé Little Consult Reason/Comments: PAD Do you want consulting provider notified?: Yes Primary care physician: Stated None Hospital Course: Discharge Diagnosis: Newly discovered diabetes mellitus type 2 DKA Bilateral lower extremity cellulitis with ulceration Severe sepsis Venous insufficiency Left foot abscess Anemia Obesity Acute kidney injury Lactic acidosis Pseudohyponatremia Hyperkalemia Hyponatremia Hospital Course: Patient is a 67-year-old male who does not follow up with physicians and with a past medical history of hypertension, dyslipidemia and osteoarthritis who presents to the ED with bilateral lower extremity redness. In the ED patient was found to have DKA. Patient admitted to the ICU and started DKA protocol as well as IV antibiotics for his lower extremity cellulitis. Once patient's anion gap closed he was transitioned to subcu insulin and transferred to the general medical floor. Patient was seen by vascular surgery who did debridement of his lower extremities. Patient also seen by wound care for his lower extremity wounds. Patient also being followed by infectious disease. His wound cultures grew beta hemolytic strep group G and Citrobacter that were sensitive to Unasyn. At the time of discharge infectious disease recommended 2 more weeks of IV Unasyn. Patient had a midline placed prior to discharge. Patient will also be discharged on Levemir at 20 units at bedtime and aspart 6 units before each meal. [facility] so that he can get education on administering insulin and also for his IV antibiotics and also wound care. Please see my progress note for physical exam A total of [40] minutes of time were spent preparing this complex discharge summary . Patient Condition at Discharge: Poor Plan - Discharge Summary Discharge Rx Participant: Yes New Discharge Prescriptions: New Insulin Detemir (Levemir) [Levemir] 10 unit SQ HS each SILVER sulfADIAZINE CREAM [Silvadene Cream] 1 applic TOPICAL DAILY each Acetaminophen Tab [Tylenol] 650 mg PO Q6HR PRN tab PRN Reason: Mild Pain Or Fever > 100.5 Ampicillin-Sulbactam [Unasyn] 3 gm IVPB Q8HR 14 Days #0 each INSULIN ASPART (NovoLOG) [NovoLOG (formulary)] 6 unit SQ AC-TID each Discharge Medication List Acetaminophen Tab [Tylenol] 650 mg PO Q6HR PRN tab 07/15/22 [Rx] Ampicillin-Sulbactam [Unasyn] 3 gm IVPB Q8HR 14 Days #0 each 07/15/22 [Rx] INSULIN ASPART (NovoLOG) [NovoLOG (formulary)] 6 unit SQ AC-TID each 07/15/22 [Rx] Insulin Detemir (Levemir) [Levemir] 10 unit SQ HS each 07/15/22 [Rx] SILVER sulfADIAZINE CREAM [Silvadene Cream] 1 applic TOPICAL DAILY each 07/15/22 [Rx] Follow up Appointment(s)/Referral(s): None,Stated [Primary Care Provider] - 1-2 days W[facility] [NON-STAFF] - 1 Week Discharge Disposition: TRANSFER TO SNF/ECF
[2022-07-15 14:41] VITALS: BP 119/77; RESP 16; TEMP 99.1
[2022-07-15 16:22] LABS: Glucose,Whole Blood 161 mg/dL (70-110)
--- NOTE | 2022-07-16 07:32 | US ---
EXAMINATION TYPE: US arterial LE single level DATE OF EXAM: 07/09/2022 6:11 PM CLINICAL HISTORY: non palpable DP/PT. Non-healing ulcerations to bilateral lower legs with redness an d peeling/oozing skin. Doppler Waveforms: Right: Biphasic to monophasic Left: Biphasic to monophasic Ankle-Brachial Indices: Right: 1.12 Left: 1.19 Toe Brachial Indices: Right: Unable to perform pressures bilateral toes due to weeping/oozing skin Left: Unable to perform pressures bilateral toes due to weeping/oozing skin IMPRESSION: Normal MARGARETH values. Cannot exclude significant peripheral arterial disease in the bilater al feet. Further workup and follow-up advised.
== END 2022-07-15 17:20 | DRG 853 ==
LOC: EC 11:10 → 3SCARD 13:13 → 2SICU 15:06 → 4SSUR 07-10 18:08
PROVIDERS: ADMIT Internal Medicine; ATTEND Internal Medicine
PROC: 0JBQ0ZZ Excision of Right Foot Subcutaneous Tissue and Fascia, Open Approach (ICD-10-PCS; principal; 2022-07-11 13:45)
PROC: 0LBW0ZZ Excision of Left Foot Tendon, Open Approach (ICD-10-PCS; principal; 2022-07-11 13:45)
PROC: 05HB33Z Insertion of Infusion Device into Right Basilic Vein, Percutaneous Approach (ICD-10-PCS; 2022-07-15 11:55)
DX: A41.9 Sepsis, unspecified organism (principal); E11.10 Type 2 diabetes mellitus with ketoacidosis without coma; N17.9 Acute kidney failure, unspecified; E11.52 Type 2 diabetes mellitus with diabetic peripheral angiopathy with gangrene; E87.1 Hypo-osmolality and hyponatremia; L03.115 Cellulitis of right lower limb; L03.116 Cellulitis of left lower limb; L02.612 Cutaneous abscess of left foot; E11.649 Type 2 diabetes mellitus with hypoglycemia without coma; L97.512 Non-pressure chronic ulcer of other part of right foot with fat layer exposed; E11.621 Type 2 diabetes mellitus with foot ulcer; L97.522 Non-pressure chronic ulcer of other part of left foot with fat layer exposed; R65.20 Severe sepsis without septic shock; Z20.822 Contact with and (suspected) exposure to COVID-19; Z28.310 Unvaccinated for COVID-19; B95.4 Other streptococcus as the cause of diseases classified elsewhere; E86.0 Dehydration; I10 Essential (primary) hypertension; E87.5 Hyperkalemia; E78.5 Hyperlipidemia, unspecified; E87.6 Hypokalemia; I87.2 Venous insufficiency (chronic) (peripheral); I87.8 Other specified disorders of veins; D64.9 Anemia, unspecified; G47.00 Insomnia, unspecified; M19.90 Unspecified osteoarthritis, unspecified site; E66.9 Obesity, unspecified; Z68.39 Body mass index [BMI] 39.0-39.9, adult; Z96.642 Presence of left artificial hip joint; Z71.3 Dietary counseling and surveillance
CPT/HCPCS: 36410; 36415; 76937; 80048; 80051; 80053; 80202; 81001; 82009; 82565; 82803; 82947; 83036; 83605; 83735; 84100; 84520; 85025; 85027; 87040; 87070; 87075; 87077; 87186; 87205; 87324; 87635; 93306; 93922; 96361; 96374; 99285

== ENCOUNTER 2022-09-24 12:43 | Inpatient (IN) | payer BC, MEDICARE ==
[2022-09-24] MEDS ORDERED: VANCOMYCIN IV PER PHARMACY 1 EACH MISC MISCELLANE PRN (12:49)
[2022-09-24] MEDS ORDERED: PIPERACILLIN-TAZOBACTAM 3.375 GM in SODIUM CHLORIDE 0.9% 100 ML IVPB STA (12:49)
[2022-09-24] MEDS ORDERED: SODIUM CHLORIDE 0.9% 1,000 ML IV ONE (12:50)
[2022-09-24 13:06] LABS: HGB 11.6 gm/dL (13.0-17.5); Hypochromasia Slight; MCH 27.7 pg (25.0-35.0); MCHC 32.3 g/dL (31.0-37.0); MCV 85.8 fL (80.0-100.0); Mean Platelet Volume 8.1; Platelet Count 267 k/uL (150-450); RDW 13.7 % (11.5-15.5); WBC 22.4 k/uL (3.8-10.6)
[2022-09-24] MEDS: ACETAMINOPHEN TAB 500 MG TAB PO STA ×2 (13:09→13:10)
--- NOTE | 2022-09-24 13:09 | ED ---
General Adult HPI - General Chief complaint: Recheck/Abnormal Lab/Rx Stated complaint: sepsis Time Seen by Provider: 09/24/22 12:45 Source: patient, EMS, RN notes reviewed, old records reviewed Mode of arrival: EMS Limitations: no limitations - History of Present Illness Initial comments: 67 -year-old male [facility] with bilateral nonhealing ulcers of the heels and, fever up to 104. Patient has had purulent drainage from nonhealing wounds and erythema which extends to the bilateral knees. He's had a marginal blood pressure. He was febrile and tachycardic by paramedics. No chest pain or abdominal pain. No cough. - Related Data Home Medications Medication Instructions Recorded Confirmed Ciprofloxacin HCl [Cipro] 500 mg PO DAILY@0800 09/24/22 09/24/22 Gabapentin 300 mg PO TID@0600,1400,2200 09/24/22 09/24/22 HYDROcodone/APAP 5-325MG [Elmore 1 tab PO Q6H PRN 09/24/22 09/24/22 5-325] Insulin Detemir (Levemir) [Levemir] 10 unit SQ HS@2130 09/24/22 09/24/22 Delgado Packet 1 packet PO BID@0800,1700 09/24/22 09/24/22 Lidocaine 5% Oint [Xylocaine 5% 1 applic TOPICAL DAILY PRN 09/24/22 09/24/22 Oint] Magic Butt Paste 1 applic TOPICAL TID 09/24/22 09/24/22 Magnesium Hydroxide [Milk of 7,200 mg PO Q48H PRN 09/24/22 09/24/22 Magnesia Concentrate] Na Phos,M-B/Na Phos,Di-Ba [Fleet 133 ml RECTAL DAILY PRN 09/24/22 09/24/22 Adult] bisacodyL [Dulcolax] 10 mg RECTAL DAILY PRN 09/24/22 09/24/22 diphenhydrAMINE [Benadryl] 25 mg PO Q6H PRN 09/24/22 09/24/22 Previous Rx's Medication Instructions Recorded Acetaminophen Tab [Tylenol] 650 mg PO Q6HR PRN tab 07/15/22 INSULIN ASPART (NovoLOG) [NovoLOG 6 unit SQ AC-TID each 07/15/22 (formulary)] Allergies Allergy/AdvReac Type Severity Reaction Status Date / Time No Known Allergies Allergy Verified 09/24/22 14:15 Review of Systems ROS Statement: Those systems with pertinent positive or pertinent negative responses have been documented in the HPI. ROS Other: All systems not noted in ROS Statement are negative. Past Medical History Past Medical History: Hypertension Additional Past Medical History / Comment(s): borderline cholesterol History of Any Multi-Drug Resistant Organisms: None Reported Past Surgical History: Orthopedic Surgery Additional Past Surgical History / Comment(s): hip replacement left, cataracts, surgery as a child right leg Past Psychological History: No Psychological Hx Reported Smoking Status: Never smoker Past Alcohol Use History: None Reported Past Drug Use History: None Reported - Past Family History family Additional Family Medical History / Comment(s): No family hx of diabetes General Exam Limitations: no limitations General appearance: alert, in no apparent distress Head exam: Present: atraumatic, normocephalic Eye exam: Present: normal appearance, PERRL ENT exam: Present: mucous membranes dry Neck exam: Present: normal inspection. Absent: tenderness, meningismus Respiratory exam: Present: normal lung sounds bilaterally. Absent: respiratory distress, wheezes Cardiovascular Exam: Present: normal rhythm, tachycardia GI/Abdominal exam: Present: soft. Absent: distended, tenderness, guarding, rebound Extremities exam: Present: other (Bilateral heel ulceration, serial and drainage, cellulitis extending up to bilateral legs) Neurological exam: Present: alert, oriented X3, CN II-XII intact. Absent: motor sensory deficit Psychiatric exam: Present: normal affect, normal mood Skin exam: Present: warm, dry, intact. Absent: cyanosis, diaphoretic Course Vital Signs 09/24/22 09/24/22 12:44 13:23 Temperature 99.6 F Pulse Rate 111 H Pulse Rate [ 112 H Bias Binding Folder ] Respiratory 18 Rate Blood Pressure 99/58 O2 Sat by Pulse 92 L Oximetry EKG Findings - EKG Comments: EKG Findings:: EKG: Sinus tachycardia, left axis, rate of 109, UT interval 136, QRS duration 106, QTC 433, no ST segment changes. Medical Decision Making - Medical Decision Making 67 -year-old male presenting for evaluation of fever, bilateral heel ulceration and lower extremity cellulitis. Patient has purulent foul-smelling drainage, from bilateral heel wounds. There is erythema, cellulitis extending up to the knee bilaterally. Patient is immediately initiated on antibiotics. Laboratory studies are obtained. He has elevated white blood cell count, elevated lactic acid. He started on vancomycin and Zosyn in the emergency department. He will be admitted for continued IV hydration, IV antibiotics. Case discussed with Dr. Brower who will admit with infectious disease on consult. - Lab Data Result diagrams: 09/24/22 12:59 09/24/22 12:59 Lab Results 09/24/22 09/24/22 09/24/22 Range/Units 12:59 12:59 12:59 WBC 22.4 H (3.8-10.6) k/uL RBC 4.20 L (4.30-5.90) m/uL Hgb 11.6 L (13.0-17.5) gm/dL Hct 36.0 L (39.0-53.0) % MCV 85.8 (80.0-100.0) fL MCH 27.7 (25.0-35.0) pg MCHC 32.3 (31.0-37.0) g/dL RDW 13.7 (11.5-15.5) % Plt Count 267 (150-450) k/uL MPV 8.1 Neutrophils % (Manual) 94 % Lymphocytes % (Manual) 3 % Monocytes % (Manual) 3 % Neutrophils # (Manual) 21.06 H (1.3-7.7) k/uL Lymphocytes # (Manual) 0.67 L (1.0-4.8) k/uL Monocytes # (Manual) 0.67 (0-1.0) k/uL Nucleated RBCs 0 (0-0) /100 WBC Manual Slide Review Performed Hypochromasia Slight PT 12.8 H (9.0-12.0) sec INR 1.2 H (<1.2) APTT 25.0 (22.0-30.0) sec Sodium 132 L (137-145) mmol/L Potassium 3.6 (3.5-5.1) mmol/L Chloride 100 (98-107) mmol/L Carbon Dioxide 21 L (22-30) mmol/L Anion Gap 11 mmol/L BUN 26 H (9-20) mg/dL Creatinine 1.04 (0.66-1.25) mg/dL Est GFR (CKD-EPI)AfAm 87 (>60 ml/min/1.73 sqM) Est GFR (CKD-EPI)NonAf 75 (>60 ml/min/1.73 sqM) Glucose 250 H (74-99) mg/dL Plasma Lactic Acid Clint (0.7-2.0) mmol/L Calcium 8.3 L (8.4-10.2) mg/dL Total Bilirubin 0.5 (0.2-1.3) mg/dL AST 39 (17-59) U/L ALT 29 (4-49) U/L Alkaline Phosphatase 78 (38-126) U/L Total Protein 6.5 (6.3-8.2) g/dL Albumin 3.2 L (3.5-5.0) g/dL 09/24/22 Range/Units 12:59 WBC (3.8-10.6) k/uL RBC (4.30-5.90) m/uL Hgb (13.0-17.5) gm/dL Hct (39.0-53.0) % MCV (80.0-100.0) fL MCH (25.0-35.0) pg MCHC (31.0-37.0) g/dL RDW (11.5-15.5) % Plt Count (150-450) k/uL MPV Neutrophils % (Manual) % Lymphocytes % (Manual) % Monocytes % (Manual) % Neutrophils # (Manual) (1.3-7.7) k/uL Lymphocytes # (Manual) (1.0-4.8) k/uL Monocytes # (Manual) (0-1.0) k/uL Nucleated RBCs (0-0) /100 WBC Manual Slide Review Hypochromasia PT (9.0-12.0) sec INR (<1.2) APTT (22.0-30.0) sec Sodium (137-145) mmol/L Potassium (3.5-5.1) mmol/L Chloride (98-107) mmol/L Carbon Dioxide (22-30) mmol/L Anion Gap mmol/L BUN (9-20) mg/dL Creatinine (0.66-1.25) mg/dL Est GFR (CKD-EPI)AfAm (>60 ml/min/1.73 sqM) Est GFR (CKD-EPI)NonAf (>60 ml/min/1.73 sqM) Glucose (74-99) mg/dL Plasma Lactic Acid Clint 2.9 H* (0.7-2.0) mmol/L Calcium (8.4-10.2) mg/dL Total Bilirubin (0.2-1.3) mg/dL AST (17-59) U/L ALT (4-49) U/L Alkaline Phosphatase (38-126) U/L Total Protein (6.3-8.2) g/dL Albumin (3.5-5.0) g/dL Critical Care Time Critical Care Time: Yes Total Critical Care Time: 35 Disposition Clinical Impression: Diabetic ulcer of both feet, Uncontrolled diabetes mellitus, Bilateral lower leg cellulitis Disposition: ADMITTED IP TO THIS [facility] Condition: Stable Is patient prescribed a controlled substance at d/c from ED?: No Referrals: Herbert Lowe MD [Primary Care Provider] - 1-2 days Time of Disposition: 14:48
[2022-09-24 13:15] LABS: Albumin 3.2 g/dL (3.5-5.0); Calcium 8.3 mg/dL (8.4-10.2); Potassium 3.6 mmol/L (3.5-5.1); Total Bilirubin 0.5 mg/dL (0.2-1.3); Total Protein 6.5 g/dL (6.3-8.2)
[2022-09-24] MEDS ORDERED: VANCOMYCIN 1,500 MG in SODIUM CHLORIDE 0.9% 500 ML 500 ML IVPB ONE (13:30)
[2022-09-24 13:32] LABS: INR 1.2 (<1.2); Prothrombin Time 12.8 sec (9.0-12.0)
[2022-09-24 14:00] LABS: Lymphocytes # (M) 0.67 k/uL (1.0-4.8); Monocytes # (M) 0.67 k/uL (0-1.0); Neutrophils # (M) 21.06 k/uL (1.3-7.7); Neutrophils % (M) 94 %; Nucleated Red Blood Cells 0 /100 WBC (0-0); Total Cells Counted 100
--- NOTE | 2022-09-24 14:04 | XR ---
EXAMINATION TYPE: XR chest 2V DATE OF EXAM: 09/24/2022 1:56 PM COMPARISON: None TECHNIQUE: XR chest 2V Frontal and lateral views of the chest. CLINICAL INDICATION:Male, 67 years old with history of Fever; FINDINGS: Lungs/Pleura: There is no evidence of pleural effusion, focal consolidation, or pneumothorax. Pulmonary vascularity: Unremarkable. Heart/mediastinum: Cardiomediastinal silhouette is unremarkable. Musculoskeletal: Multiple level degenerative disc disease changes seen throughout the spine. Bilatera l shoulder arthropathy. IMPRESSION: No acute cardiopulmonary disease/process.
[2022-09-24] MEDS ORDERED: NA PHOS,M-B/NA PHOS,DI-BA 133 ML ENEMA RECTAL PRN (14:18)
[2022-09-24] MEDS ORDERED: diphenhydrAMINE 25 MG CAP PO PRN (14:18)
[2022-09-24] MEDS ORDERED: LIDOCAINE 5% OINTMENT 50 GM JAR TOPICAL PRN (14:18)
[2022-09-24] MEDS ORDERED: MAGNESIUM HYDROXIDE 2,400 MG/10 ML CUP PO PRN (14:18)
[2022-09-24] MEDS ORDERED: ACETAMINOPHEN TAB 325 MG TAB PO PRN (14:18)
--- NOTE | 2022-09-24 14:26 | P.HPIM ---
History of Present Illness 67-year-old male was transferred from detention because of high-grade fevers of 104. Patient has bilateral lower extremity nonhealing ulcers patient the gets debridement of the lower x-ray ulcers and the second acute is ulcer. Luiz rubin is also on Cipro and Unasyn. Patient had Pseudomonas and Proteus mirabilis from the previous wound cultures. Patient blood sugars are bit high patient has diabetic foot ulcers do not have any hemoglobin A1c available patient does have leukocytosis no other source of infection was evident patient does have cough with minimal sputum production. REVIEW OF SYSTEMS: CONSTITUTIONAL: As mentioned in HPI HEENT: No recent visual problems or hearing problems. Denied any sore throat. CARDIOVASCULAR: No chest pain, orthopnea, PND, no palpitations, no syncope. PULMONARY: No shortness of breath, no cough, no hemoptysis. GASTROINTESTINAL: No diarrhea, no nausea, no vomiting, no abdominal pain. NEUROLOGICAL: No headaches, no weakness, no numbness. HEMATOLOGICAL: Denies any bleeding or petechiae. GENITOURINARY: Denies any burning micturition, frequency, or urgency. MUSCULOSKELETAL/RHEUMATOLOGICAL: Denies any joint pain, swelling, or any muscle pain. ENDOCRINE: Denies any polyuria or polydipsia. The rest of the 14-point review of systems is negative. PHYSICAL EXAMINATION: GENERAL: The patient is alert and oriented x3, not in any acute distress. Well developed, well nourished. HEENT: Pupils are round and equally reacting to light. EOMI. No scleral icterus. No conjunctival pallor. Normocephalic, atraumatic. No pharyngeal erythema. No thyromegaly. CARDIOVASCULAR: S1 and S2 present. No murmurs, rubs, or gallops. PULMONARY: Chest is clear to auscultation, no wheezing or crackles. ABDOMEN: Soft, nontender, nondistended, normoactive bowel sounds. No palpable organomegaly. MUSCULOSKELETAL: No joint swelling or deformity. EXTREMITIES: No cyanosis, clubbing, or pedal edema. NEUROLOGICAL: Gross neurological examination did not reveal any focal deficits. SKIN: Multiple bilateral lower extremity ulcerations with cellulitis of bilateral lower x-ray significant on the left leg extending up to the midshin area and a sacral decubitus ulcer Assessment and plan -Sepsis secondary to multiple bilateral lower x-ray ulcerations which are diabetic foot ulcers and a sacral Nery is ulcer wound cultures will be obtained, infectious disease will be consulted patient was started on broad- spectrum antibiotics vancomycin and the Zosyn. -type 2 diabetes mellitus we'll continue with the his sliding scale insulin and we'll increase the long-acting insulin to 15 units -Hypertension: Patient is presently hypotensive hold off on a and any antihypertensive medications -Bilateral lower extremity venous insufficiency Line-mild hyponatremia secondary to hyperglycemia expected improvement with the IV fluids and control of blood sugars -Tachycardia secondary to intravascular depletion patient will be continued on IV fluids DVT prophylaxis: Subcutaneous heparin Past Medical History Past Medical History: Hypertension Additional Past Medical History / Comment(s): borderline cholesterol History of Any Multi-Drug Resistant Organisms: None Reported Past Surgical History: Orthopedic Surgery Additional Past Surgical History / Comment(s): hip replacement left, cataracts, surgery as a child right leg Past Psychological History: No Psychological Hx Reported Smoking Status: Never smoker Past Alcohol Use History: None Reported Past Drug Use History: None Reported - Past Family History family Additional Family Medical History / Comment(s): No family hx of diabetes Medications and Allergies Home Medications Medication Instructions Recorded Confirmed Type Acetaminophen Tab [Tylenol] 650 mg PO Q6HR PRN tab 07/15/22 09/24/22 Rx INSULIN ASPART (NovoLOG) [NovoLOG 6 unit SQ AC-TID each 07/15/22 09/24/22 Rx (formulary)] Ciprofloxacin HCl [Cipro] 500 mg PO DAILY@0800 09/24/22 09/24/22 History Gabapentin 300 mg PO TID@0600,1400,2200 09/24/22 09/24/22 History HYDROcodone/APAP 5-325MG [Spencer 1 tab PO Q6H PRN 09/24/22 09/24/22 History 5-325] Insulin Detemir (Levemir) [Levemir] 10 unit SQ HS@2130 09/24/22 09/24/22 History Delgado Packet 1 packet PO BID@0800,1700 09/24/22 09/24/22 History Lidocaine 5% Oint [Xylocaine 5% 1 applic TOPICAL DAILY PRN 09/24/22 09/24/22 History Oint] Magic Butt Paste 1 applic TOPICAL TID 09/24/22 09/24/22 History Magnesium Hydroxide [Milk of 7,200 mg PO Q48H PRN 09/24/22 09/24/22 History Magnesia Concentrate] Na Phos,M-B/Na Phos,Di-Ba [Fleet 133 ml RECTAL DAILY PRN 09/24/22 09/24/22 History Adult] bisacodyL [Dulcolax] 10 mg RECTAL DAILY PRN 09/24/22 09/24/22 History diphenhydrAMINE [Benadryl] 25 mg PO Q6H PRN 09/24/22 09/24/22 History Allergies Allergy/AdvReac Type Severity Reaction Status Date / Time No Known Allergies Allergy Verified 09/24/22 14:15 Physical Exam Vitals: Vital Signs Temp Pulse Pulse Resp BP Pulse Ox 09/24/22 13:23 112 H 09/24/22 12:44 99.6 F 111 H 18 99/58 92 L Intake and Output 09/23/22 09/24/22 09/24/22 22:59 06:59 14:59 Other: Weight 90.718 kg Results CBC & Chem 7: 09/24/22 12:59 09/24/22 12:59 Labs: Abnormal Lab Results - Last 24 Hours (Table) 09/24/22 09/24/22 09/24/22 Range/Units 12:59 12:59 12:59 WBC 22.4 H (3.8-10.6) k/uL RBC 4.20 L (4.30-5.90) m/uL Hgb 11.6 L (13.0-17.5) gm/dL Hct 36.0 L (39.0-53.0) % Neutrophils # (Manual) 21.06 H (1.3-7.7) k/uL Lymphocytes # (Manual) 0.67 L (1.0-4.8) k/uL PT 12.8 H (9.0-12.0) sec INR 1.2 H (<1.2) Sodium 132 L (137-145) mmol/L Carbon Dioxide 21 L (22-30) mmol/L BUN 26 H (9-20) mg/dL Glucose 250 H (74-99) mg/dL Plasma Lactic Acid Clint (0.7-2.0) mmol/L Calcium 8.3 L (8.4-10.2) mg/dL Albumin 3.2 L (3.5-5.0) g/dL 09/24/22 Range/Units 12:59 WBC (3.8-10.6) k/uL RBC (4.30-5.90) m/uL Hgb (13.0-17.5) gm/dL Hct (39.0-53.0) % Neutrophils # (Manual) (1.3-7.7) k/uL Lymphocytes # (Manual) (1.0-4.8) k/uL PT (9.0-12.0) sec INR (<1.2) Sodium (137-145) mmol/L Carbon Dioxide (22-30) mmol/L BUN (9-20) mg/dL Glucose (74-99) mg/dL Plasma Lactic Acid Clint 2.9 H* (0.7-2.0) mmol/L Calcium (8.4-10.2) mg/dL Albumin (3.5-5.0) g/dL
[2022-09-24] MEDS ORDERED: NALOXONE 0.4 MG/ML 1 ML VIAL IV PRN (14:44)
[2022-09-24] MEDS ORDERED: NON FORMULARY DRUG (Magic Butt Paste 1 APPLIC) TOPICAL SCH (16:00)
[2022-09-24] MEDS ORDERED: NON FORMULARY DRUG (Juven Packet 1 PACKET Packet) PO SCH (17:00)
[2022-09-24 18:25] LABS: Glucose,Whole Blood 256 mg/dL (70-110)
[2022-09-24] MEDS ORDERED: PIPERACILLIN-TAZOBACTAM 3.375 GM in SODIUM CHLORIDE 0.9% 100 ML IVPB SCH (21:00)
[2022-09-24 22:00] LABS: Glucose,Whole Blood 247 mg/dL (70-110)
[2022-09-24] MEDS: GABAPENTIN 300 MG CAP PO SCH (22:24)
[2022-09-24] MEDS: INSULIN DETEMIR (LEVEMIR) 100 UNIT/ML SYR SQ SCH (22:25)
[2022-09-24] MEDS: SODIUM CHLORIDE 0.9% 1,000 ML IV SCH ×2 (22:26→22:32)
[2022-09-24] MEDS: HYDROcodone/APAP 5-325MG 1 EACH TAB PO PRN (22:27)
[2022-09-24] MEDS: INSULIN ASPART (NovoLOG) 100 UNIT/ML VIAL SQ SCH (22:36)
--- NOTE | 2022-09-24 23:05 | P.CONS ---
History of Present Illness - Reason for Consult Consult date: 09/24/22 Sepsis Requesting physician: Hiram Marin - Chief Complaint Fever 1 day - History of Present Illness Patient is a 67-year-old male [facility] resident and this patient who did have a chronic nonhealing wound to bilateral heel area patient has been sent to the ER over the patient was noticed to have a temperature of 104 F and the patient was tachycardic patient currently denies having any headache or URI symptoms patient denies having any chest pain or shortness of breath or cough no nausea no vomiting no abdominal pain or any diarrhea patient did have a chronic nonhealing wound to bilateral heel area currently being treated at the [facility] patient not sure about the type of treatment he is receiving for them, he did have significant foul-smelling to bilateral heel wound area patient on presentation to hospital have a fever of 99.6 F he did have white count 22.4 with a left shift creatinine has been normal lactic was 2.9 lab results are normal patient has been started on vancomycin and Zosyn infectious disease was consulted for further management of antibiotic therapy local culture has been obtained which are currently pending Review of Systems Positive point has been mentioned in the HPI rest of the systems are negative Past Medical History Past Medical History: Hypertension Additional Past Medical History / Comment(s): borderline cholesterol History of Any Multi-Drug Resistant Organisms: None Reported Past Surgical History: Orthopedic Surgery Additional Past Surgical History / Comment(s): hip replacement left, cataracts, surgery as a child right leg Past Psychological History: No Psychological Hx Reported Smoking Status: Never smoker Past Alcohol Use History: None Reported Past Drug Use History: None Reported - Past Family History family Additional Family Medical History / Comment(s): No family hx of diabetes Medications and Allergies Home Medications Medication Instructions Recorded Confirmed Type Acetaminophen Tab [Tylenol] 650 mg PO Q6HR PRN tab 07/15/22 09/24/22 Rx INSULIN ASPART (NovoLOG) [NovoLOG 6 unit SQ AC-TID each 07/15/22 09/24/22 Rx (formulary)] Ciprofloxacin HCl [Cipro] 500 mg PO DAILY@0800 09/24/22 09/24/22 History Gabapentin 300 mg PO TID@0600,1400,2200 09/24/22 09/24/22 History HYDROcodone/APAP 5-325MG [Spalding 1 tab PO Q6H PRN 09/24/22 09/24/22 History 5-325] Insulin Detemir (Levemir) [Levemir] 10 unit SQ HS@2130 09/24/22 09/24/22 History Delgado Packet 1 packet PO BID@0800,1700 09/24/22 09/24/22 History Lidocaine 5% Oint [Xylocaine 5% 1 applic TOPICAL DAILY PRN 09/24/22 09/24/22 History Oint] Magic Butt Paste 1 applic TOPICAL TID 09/24/22 09/24/22 History Magnesium Hydroxide [Milk of 7,200 mg PO Q48H PRN 09/24/22 09/24/22 History Magnesia Concentrate] Na Phos,M-B/Na Phos,Di-Ba [Fleet 133 ml RECTAL DAILY PRN 09/24/22 09/24/22 History Adult] bisacodyL [Dulcolax] 10 mg RECTAL DAILY PRN 09/24/22 09/24/22 History diphenhydrAMINE [Benadryl] 25 mg PO Q6H PRN 09/24/22 09/24/22 History Allergies Allergy/AdvReac Type Severity Reaction Status Date / Time No Known Allergies Allergy Verified 09/24/22 14:15 Physical Exam Vitals: Vital Signs Temp Pulse Pulse Resp BP Pulse Ox 09/24/22 18:26 98 18 112/66 98 09/24/22 15:48 98 F 106 H 18 102/63 94 L 09/24/22 13:23 112 H 09/24/22 12:44 99.6 F 111 H 18 99/58 92 L Intake and Output 09/24/22 09/24/22 09/24/22 06:59 14:59 22:59 Other: Weight 90.718 kg GENERAL DESCRIPTION: Elderly male lying in bed, no distress. No tachypnea or accessory muscle of respiration use. HEENT: Shows Pallor , no scleral icterus. Oral mucous membrane is dry. No pharyngeal erythema or thrush NECK: Trachea central, no thyromegaly. LUNGS: Unlabored breathing. Clear to auscultation anteriorly. No wheeze or crackle. HEART: S1, S2, regular rate and rhythm. No loud murmur ABDOMEN: Soft, no tenderness , guarding or rigidity, no organomegaly EXTREMITIES: Right heel did have a necrotic wound and some foul-smelling drainage left heel wound with slough tissue but no significant surrounding redness SKIN: No rash, no masses palpable. Patient did have a stage III sacral pressure ulcer with some slough tissue no significant surrounding redness NEUROLOGICAL: The patient is awake, alert, oriented x3, mood and affect normal. Results CBC & Chem 7: 09/28/22 07:21 09/28/22 07:21 Labs: Abnormal Lab Results - Last 24 Hours (Table) 09/24/22 09/24/22 09/24/22 Range/Units 12:59 12:59 12:59 WBC 22.4 H (3.8-10.6) k/uL RBC 4.20 L (4.30-5.90) m/uL Hgb 11.6 L (13.0-17.5) gm/dL Hct 36.0 L (39.0-53.0) % Neutrophils # (Manual) 21.06 H (1.3-7.7) k/uL Lymphocytes # (Manual) 0.67 L (1.0-4.8) k/uL PT 12.8 H (9.0-12.0) sec INR 1.2 H (<1.2) Sodium 132 L (137-145) mmol/L Carbon Dioxide 21 L (22-30) mmol/L BUN 26 H (9-20) mg/dL Glucose 250 H (74-99) mg/dL POC Glucose (mg/dL) (70-110) mg/dL Plasma Lactic Acid Clint (0.7-2.0) mmol/L Calcium 8.3 L (8.4-10.2) mg/dL Albumin 3.2 L (3.5-5.0) g/dL 09/24/22 09/24/22 Range/Units 12:59 18:25 WBC (3.8-10.6) k/uL RBC (4.30-5.90) m/uL Hgb (13.0-17.5) gm/dL Hct (39.0-53.0) % Neutrophils # (Manual) (1.3-7.7) k/uL Lymphocytes # (Manual) (1.0-4.8) k/uL PT (9.0-12.0) sec INR (<1.2) Sodium (137-145) mmol/L Carbon Dioxide (22-30) mmol/L BUN (9-20) mg/dL Glucose (74-99) mg/dL POC Glucose (mg/dL) 256 H (70-110) mg/dL Plasma Lactic Acid Clint 2.9 H* (0.7-2.0) mmol/L Calcium (8.4-10.2) mg/dL Albumin (3.5-5.0) g/dL Assessment and Plan (1) Diabetic ulcer of both feet Current Visit: Yes Status: Acute Code(s): E11.621 - TYPE 2 DIABETES MELLITUS WITH FOOT ULCER; L97.519 - NON-PRS CHRONIC ULCER OTH PRT RIGHT FOOT W UNSP SEVERITY; L97.529 - NON-PRESSURE CHRONIC ULCER OTH PRT LEFT FOOT W UNSP SEVERITY SNOMED Code(s): 962738243 Plan: 1patient present to hospital with sepsis in this patient who did have a fever tachycardia elevated white count source likely bilateral heel infected pressure ulcer with secondary cellulitis being a [facility] resident will need to cover for the resistant gram-positive as well as gram-negative pathogen. 2patient will benefit from vascular surgery evaluation for debridement of this ulcer and deep culture. 3we will check inflammatory markers. 4continue with the vancomycin however switch Zosyn to Unasyn to decrease risk of nephrotoxicity. We will follow on clinical condition and cultures to further adjust medication if needed Thank you for this consultation will follow this patient along with you Time with Patient: Greater than 30
[2022-09-25] MEDS: AMPICILLIN-SULBACTAM 3 GM in SODIUM CHLORIDE 0.9% 100 ML IVPB SCH ×4 (01:07→17:07)
[2022-09-25 01:51] LABS: Glucose,Whole Blood 198 mg/dL (70-110)
[2022-09-25 02:39] LABS: Appearance,Urine Clear (Clear); Bilirubin,Urine Negative (Negative); Blood,Urine Small (Negative); Color,Urine Yellow; Glucose,Urine (UA) Negative (Negative); Ketones,Urine Negative (Negative); Leukocyte Esterase,Urine Negative (Negative); Mucus,Urine Rare /hpf; Nitrite,Urine Negative (Negative); Protein,Urine 2+ (Negative); RBC,Urine 2 /hpf (0-5); Specific Gravity,Urine 1.011 (1.001-1.035); Urobilinogen,Urine <2.0 mg/dL (<2.0); WBC,Urine 1 /hpf (0-5)
[2022-09-25] MEDS: GABAPENTIN 300 MG CAP PO SCH ×3 (05:27→20:59)
[2022-09-25] MEDS: SODIUM CHLORIDE 0.9% 1,000 ML IV SCH ×2 (05:37→12:22)
[2022-09-25] MEDS: VANCOMYCIN 1,500 MG in SODIUM CHLORIDE 0.9% 500 ML 500 ML IVPB SCH ×2 (06:29→21:00)
[2022-09-25 06:46] LABS: Glucose,Whole Blood 141 mg/dL (70-110)
[2022-09-25] MEDS: INSULIN ASPART (NovoLOG) 100 UNIT/ML VIAL SQ SCH ×3 (08:34→17:07)
[2022-09-25] MEDS: TAMSULOSIN 0.4 MG CAP.ER.24H PO SCH (08:34)
[2022-09-25 09:03] LABS: HCT 33.8 % (39.6-50.0); HGB 10.8 g/dL (13.0-17.0); MCH 27.3 pg (27.0-32.0); MCV 85.6 fL (80.0-97.0); Mean Platelet Volume 10.5 fL (9.5-12.2); NRBC Per 100 WBC 0 /100 WBCS (0.0-0.0); Platelet Count 242 X 10*3/uL (140-440); RBC 3.95 X 10*6/uL (4.40-5.60); RDW 14.2 % (11.5-14.5); WBC 24.77 X 10*3/uL (4.50-10.00)
[2022-09-25 09:19] LABS: Erythrocyte Sedimentation Rate 86 mm/Hr (0-20)
[2022-09-25 09:23] LABS: African American GFR (CKD) 102.8 (60.0-200.0); Anion Gap 10.8 mmol/L (10.00-18.00); BUN/Creat Ratio 28.11 Ratio (12.00-20.00); Blood Urea Nitrogen 25.3 mg/dL (9.0-27.0); C Reactive Protein 19.3 mg/dL (0.00-0.80); Calcium 8.3 mg/dL (8.7-10.3); Carbon Dioxide 23.2 mmol/L (20.0-27.5); Magnesium 1.8 mg/dL (1.5-2.4); Non-African American GFR(CKD) 88.7 (60.0-200.0); Potassium 3.7 mmol/L (3.5-5.5)
[2022-09-25] MEDS ORDERED: POTASSIUM CHLORIDE ER 10 MEQ TAB.ER.PRT PO STA (09:51)
[2022-09-25] MEDS: MAGNESIUM SULFATE-D5W PMX 1 GM in DEXTROSE/WATER 1 100ML.BAG IVPB SCH ×2 (10:24→11:24)
[2022-09-25 11:53] LABS: Glucose,Whole Blood 206 mg/dL (70-110)
[2022-09-25 14:02] VITALS: BMI 36.6
--- NOTE | 2022-09-25 15:43 | P.PN ---
Subjective Progress Note Date: 09/25/22 67-year-old male was transferred from care home because of high-grade fevers of 104. Patient has bilateral lower extremity nonhealing ulcers patient the gets debridement of the lower x-ray ulcers and the second acute is ulcer. Patient is also on Cipro and Unasyn. Patient had Pseudomonas and Proteus m irabilis from the previous wound cultures. Patient blood sugars are bit high patient has diabetic foot ulcers do not have any hemoglobin A1c available patient does have leukocytosis no other source of infection was evident patient does have cough with minimal sputum production. 09/25/2022 Patient evaluated today resting in bed eating lunch. No acute events overnight. Bilateral optifoam dressing intact to heels. He has pressure reduction boots on. Wound cultures are pending at this time and patient is currently on IV unasyn and IV vancomycin. Infectious disease is following closely. White count today 24.77. He does have elevated inflammatory markers ESR elevated at 86, CRP 19.30. Lactic acid has normalized to 1.5. Blood pressure improved 113/71. Patient did have an episode of urinary retention with over 1L fluid found in urinary bladder and indwelling catheter was placed. Patient was started on flomax and will complete voiding trial most likely tomorrow. Review of Systems Constitutional: Denied any fatigue denied any fever. Cardio vascular: denied any chest pain, palpitations Gastrointestinal: denied any nausea, vomiting, diarrhea Pulmonary: Denied any shortness of breath cough Neurologic denied any new focal deficits All inpatient medications were reviewed and appropriate changes in these medications as dictated in the interval history and assessment and plan. PHYSICAL EXAMINATION: GENERAL: The patient is alert and oriented x3, not in any acute distress. Well developed, well nourished. HEENT: Pupils are round and equally reacting to light. EOMI. No scleral icterus. No conjunctival pallor. Normocephalic, atraumatic. No pharyngeal erythema. No thyromegaly. CARDIOVASCULAR: S1 and S2 present. No murmurs, rubs, or gallops. PULMONARY: Chest is clear to auscultation, no wheezing or crackles. ABDOMEN: Soft, nontender, nondistended, normoactive bowel sounds. No palpable organomegaly. MUSCULOSKELETAL: No joint swelling or deformity. EXTREMITIES: No cyanosis, clubbing, or pedal edema. NEUROLOGICAL: Gross neurological examination did not reveal any focal deficits. SKIN: Multiple bilateral lower extremity ulcerations with cellulitis of bilateral lower x-ray significant on the left leg extending up to the midshin area and a sacral decubitus ulcer Assessment and plan -Sepsis secondary to multiple bilateral lower extremity ulcerations which are diabetic foot ulcers and a sacral decubitus ulcer - wound cultures are currently pending. Patient continues on empiric antibiotic coverage with IV vancomycin and IV unasyn. Infectious disease following cultures. Continue local wound care. -type 2 diabetes mellitus -Hypertension: blood pressure currently 90s-100s systolic and antihypertensives are on hold -Bilateral lower extremity venous insufficiency -mild hyponatremia secondary to hyperglycemia improved with IV fluids -Tachycardia secondary to intravascular depletion patient will be continued on IV fluids, tachycardia has improved DVT prophylaxis: Subcutaneous heparin GI prophyalxis: Pepcid Full Code The impression and plan of care has been dictated by Leatha Clancy, Nurse Practitioner as directed. Dr. Leida MD I have performed a history and physical examination and medical decision making of this patient, discussed the same with the dictator, and agree with the dictators assessment and plan as written, documented as a scribe. Based on total visit time, I have performed more than 50% of this visit. Objective - Vital Signs Vital signs: Vital Signs Temp 98.1 F 09/25/22 15:27 Pulse 92 09/25/22 15:27 Resp 18 09/25/22 15:27 BP 113/71 09/25/22 15:27 Pulse Ox 95 09/25/22 15:27 FiO2 Intake & Output 09/24/22 09/25/22 09/25/22 18:59 06:59 18:59 Intake Total 1880 Output Total 1450 Balance 430 Weight 90.718 kg 90.718 kg 90.718 kg Intake: Intake, IV Titration 1400 Amount Ampicillin-Sulbactam 3 gm 200 In Sodium Chloride 0.9% 100 ml @ 200 mls/hr IVPB Q6HR [facility] Rx#:[id number] Piperacillin-Tazobactam 3 50 .375 gm In Sodium Chloride 0.9% 100 ml @ 25 mls/hr IVPB Q8H [facility] Rx#: [id number] Sodium Chloride 0.9% 1, 650 000 ml @ 130 mls/hr IV . Q7H42M [facility] Rx#:[id number] Vancomycin 1,500 mg In 500 Sodium Chloride 0.9% 500 ml 500 ml @ 167 mls/hr IVPB Q16H [facility] Rx#: [id number] Oral 480 Output: Urine 1450 Uretheral (Mayer) 1150 Other: Voiding Method Diaper # Bowel Movements 1 - Labs CBC & Chem 7: 09/25/22 05:42 09/25/22 05:42 Labs: Abnormal Lab Results - Last 24 Hours (Table) 09/24/22 09/24/22 09/25/22 Range/Units 18:25 21:59 01:50 WBC (4.50-10.00) X 10*3/uL RBC (4.40-5.60) X 10*6/uL Hgb (13.0-17.0) g/dL Hct (39.6-50.0) % ESR (0-20) mm/Hr BUN/Creatinine Ratio (12.00-20.00) Ratio Glucose (70-110) mg/dL POC Glucose (mg/dL) 256 H 247 H 198 H (70-110) mg/dL Calcium (8.7-10.3) mg/dL C-Reactive Protein (0.00-0.80) mg/dL Urine Protein (Negative) Urine Blood (Negative) Urine Mucus (None) /hpf 09/25/22 09/25/22 09/25/22 Range/Units 02:25 05:42 05:42 WBC 24.77 H (4.50-10.00) X 10*3/uL RBC 3.95 L (4.40-5.60) X 10*6/uL Hgb 10.8 L (13.0-17.0) g/dL Hct 33.8 L (39.6-50.0) % ESR 86 H (0-20) mm/Hr BUN/Creatinine Ratio 28.11 H (12.00-20.00) Ratio Glucose 151 H (70-110) mg/dL POC Glucose (mg/dL) (70-110) mg/dL Calcium 8.3 L (8.7-10.3) mg/dL C-Reactive Protein 19.30 H (0.00-0.80) mg/dL Urine Protein 2+ H (Negative) Urine Blood Small H (Negative) Urine Mucus Rare H (None) /hpf 09/25/22 09/25/22 Range/Units 06:45 11:50 WBC (4.50-10.00) X 10*3/uL RBC (4.40-5.60) X 10*6/uL Hgb (13.0-17.0) g/dL Hct (39.6-50.0) % ESR (0-20) mm/Hr BUN/Creatinine Ratio (12.00-20.00) Ratio Glucose (70-110) mg/dL POC Glucose (mg/dL) 141 H 206 H (70-110) mg/dL Calcium (8.7-10.3) mg/dL C-Reactive Protein (0.00-0.80) mg/dL Urine Protein (Negative) Urine Blood (Negative) Urine Mucus (None) /hpf Microbiology - Last 24 Hours (Table) 09/24/22 17:18 Gram Stain - Preliminary Ankle - Right Wound Culture - Preliminary 09/24/22 13:05 Blood Culture - Preliminary Blood No Growth after 24 hours 09/24/22 13:03 Blood Culture - Preliminary Blood No Growth after 24 hours 09/24/22 17:18 Anaerobic Culture - Preliminary Ankle - Left Assessment and Plan Time with Patient: Less than 30
[2022-09-25 16:47] LABS: Glucose,Whole Blood 145 mg/dL (70-110)
[2022-09-25 20:30] LABS: Glucose,Whole Blood 164 mg/dL (70-110)
[2022-09-25] MEDS: HYDROcodone/APAP 5-325MG 1 EACH TAB PO PRN (20:59)
[2022-09-25] MEDS: FAMOTIDINE 20 MG TAB PO SCH (20:59)
[2022-09-25] MEDS: INSULIN DETEMIR (LEVEMIR) 100 UNIT/ML SYR SQ SCH (20:59)
[2022-09-25] MEDS: MELATONIN 5 MG TABLET PO SCH (21:00)
[2022-09-26] MEDS: AMPICILLIN-SULBACTAM 3 GM in SODIUM CHLORIDE 0.9% 100 ML IVPB SCH ×4 (00:10→17:39)
[2022-09-26] MEDS: SODIUM CHLORIDE 0.9% 1,000 ML IV SCH ×2 (01:52→09:26)
[2022-09-26] MEDS: GABAPENTIN 300 MG CAP PO SCH ×3 (05:25→21:45)
[2022-09-26] MEDS ORDERED: LIDOCAINE 1% (PF) 10 MG/ML (30 ML SDV) SQ ONE (06:30)
[2022-09-26] MEDS: HYDROcodone/APAP 5-325MG 1 EACH TAB PO PRN ×2 (06:37→21:47)
[2022-09-26] MEDS ORDERED: LIDOCAINE (PF) 10 MG/ML 2 ML VIAL SQ ONE (07:00)
[2022-09-26 07:10] LABS: Glucose,Whole Blood 106 mg/dL (70-110)
[2022-09-26] MEDS: INSULIN ASPART (NovoLOG) 100 UNIT/ML VIAL SQ SCH ×3 (07:13→17:07)
[2022-09-26 09:07] LABS: Basophils % (A) 0 %; Eosinophils # (A) 0.7 k/uL (0-0.7); Eosinophils % (A) 5 %; HCT 32.4 % (39.0-53.0); HGB 10.7 gm/dL (13.0-17.5); Hypochromasia Moderate; Lymphocytes % (A) 7 %; MCH 28.7 pg (25.0-35.0); MCHC 32.9 g/dL (31.0-37.0); MCV 87.1 fL (80.0-100.0); Mean Platelet Volume 8.6; Monocytes # (A) 0.6 k/uL (0-1.0); Monocytes % (A) 4 %; Neutrophils # (A) 11.7 k/uL (1.3-7.7); Neutrophils % (A) 83 %; Platelet Count 191 k/uL (150-450); RBC 3.72 m/uL (4.30-5.90); RDW 13.7 % (11.5-15.5); WBC 14.1 k/uL (3.8-10.6)
[2022-09-26] MEDS: TAMSULOSIN 0.4 MG CAP.ER.24H PO SCH (09:25)
[2022-09-26] MEDS: FAMOTIDINE 20 MG TAB PO SCH ×2 (09:25→21:45)
[2022-09-26 12:10] LABS: Glucose,Whole Blood 132 mg/dL (70-110)
[2022-09-26] MEDS ORDERED: VANCOMYCIN TROUGH DUE 1 EACH MISC MISCELLANE ONE (13:00)
[2022-09-26] MEDS: VANCOMYCIN 1,500 MG in SODIUM CHLORIDE 0.9% 500 ML 500 ML IVPB SCH (13:13)
[2022-09-26 13:46] LABS: African American GFR (CKD) >90 (>60 ml/min/1.73 sqM); Non-African American GFR(CKD) >90 (>60 ml/min/1.73 sqM)
--- NOTE | 2022-09-26 15:52 | XR ---
EXAMINATION TYPE: XR ankle complete RT DATE OF EXAM: 09/26/2022 COMPARISON: Foot radiograph 07/09/2022 HISTORY: 67-year-old male right heel and ankle pain, diabetic wounds of the feet. TECHNIQUE: 3 views FINDINGS: Marked osteopenia. There is underlying degenerative change at the tibiotalar joint with pro minent joint space narrowing and bulky marginal spurring. Some chronic remodeling noted of the talar head. Severe spurring from the dorsal talar neck would be expected to contribute to anterior ankle im pingement. Generalized soft tissue swelling. Achilles tendon not well delineated. IMPRESSION: 1. Severe tibiotalar joint OA. There is marked osteopenia which limits the evaluation. No displaced f racture is seen. 2. Achilles tendon not well delineated probably due to overlying dressing or sock. Clinically correla te.
[2022-09-26 17:05] LABS: Glucose,Whole Blood 85 mg/dL (70-110)
--- NOTE | 2022-09-26 19:51 | OP ---
OPERATIVE REPORT PREOPERATIVE DIAGNOSIS: Infected wound, right heel. Measurement is 4 x 4 cm with 0.5 cm. PROCEDURES PERFORMED: Debridement of the wound and excision of the debrided tissue. DESCRIPTION OF PROCEDURE: The patient was seen, and right foot was prepped. 1% lidocaine was infiltrated. Using sharp knife, we did the debridement. There was some devitalized tissue noted at the skin edges which was excised, and the base of the wound had some disintegrated tissue. The tissue was sent for deep culture. Medihoney gel was applied to the wound. The patient tolerated the procedure well. MMODL / IJN: [id number] /
[2022-09-26 20:31] LABS: Glucose,Whole Blood 157 mg/dL (70-110)
[2022-09-26] MEDS: INSULIN DETEMIR (LEVEMIR) 100 UNIT/ML SYR SQ SCH (21:45)
[2022-09-26] MEDS: MELATONIN 5 MG TABLET PO SCH (21:45)
[2022-09-26] MEDS ORDERED: traMADol 50 MG TAB PO PRN (23:00)
--- NOTE | 2022-09-26 23:02 | P.PN ---
Subjective Progress Note Date: 09/26/22 67-year-old male was transferred from custodial because of high-grade fevers of 104. Patient has bilateral lower extremity nonhealing ulcers patient the gets debridement of the lower x-ray ulcers and the second acute is ulcer. Patient is also on Cipro and Unasyn. Patient had Pseudomonas and Proteus m irabilis from the previous wound cultures. Patient blood sugars are bit high patient has diabetic foot ulcers do not have any hemoglobin A1c available patient does have leukocytosis no other source of infection was evident patient does have cough with minimal sputum production. 09/25/2022 Patient evaluated today resting in bed eating lunch. No acute events overnight. Bilateral optifoam dressing intact to heels. He has pressure reduction boots on. Wound cultures are pending at this time and patient is currently on IV unasyn and IV vancomycin. Infectious disease is following closely. White count today 24.77. He does have elevated inflammatory markers ESR elevated at 86, CRP 19.30. Lactic acid has normalized to 1.5. Blood pressure improved 113/71. Patient did have an episode of urinary retention with over 1L fluid found in urinary bladder and indwelling catheter was placed. Patient was started on flomax and will complete voiding trial most likely tomorrow. 09/26/2022 Patient is resting in bed today, states he had hard time sleeping last night secondary to pain from his right ankle. There is some impingement noted on xray and soft tissue swelling. Patient underwent debridement of right heel wound at the bedside today and local wound care with meidhoney applied. Wound culture alejandra wing MRSA and deep tissue cultures are pending. White count today has improved to 14.1. Patient continues on IV vancomycin, IV unasyn, infectious disease following. Blood pressures remain in the low 100s systolic. Review of Systems Constitutional: Denied any fatigue denied any fever. Cardio vascular: denied any chest pain, palpitations Gastrointestinal: denied any nausea, vomiting, diarrhea Pulmonary: Denied any shortness of breath cough Neurologic denied any new focal deficits All inpatient medications were reviewed and appropriate changes in these medications as dictated in the interval history and assessment and plan. PHYSICAL EXAMINATION: GENERAL: The patient is alert and oriented x3, not in any acute distress. Well developed, well nourished. HEENT: Pupils are round and equally reacting to light. EOMI. No scleral icterus. No conjunctival pallor. Normocephalic, atraumatic. No pharyngeal erythema. No thyromegaly. CARDIOVASCULAR: S1 and S2 present. No murmurs, rubs, or gallops. PULMONARY: Chest is clear to auscultation, no wheezing or crackles. ABDOMEN: Soft, nontender, nondistended, normoactive bowel sounds. No palpable organomegaly. MUSCULOSKELETAL: No joint swelling or deformity. EXTREMITIES: No cyanosis, clubbing, or pedal edema. NEUROLOGICAL: Gross neurological examination did not reveal any focal deficits. SKIN: Multiple bilateral lower extremity ulcerations with cellulitis of bilateral lower x-ray significant on the left leg extending up to the midshin a dao and a sacral decubitus ulcer Assessment and plan -Sepsis secondary to multiple bilateral lower extremity ulcerations which are diabetic foot ulcers and a sacral decubitus ulcer, right heel wound culture showing MRSA patient underwent surgical debridement to right heel today and deep tissue cultures are pending. -type 2 diabetes mellitus -Hypertension: blood pressure currently 90s-100s systolic and antihypertensives are on hold, continue with gentle hydration -Bilateral lower extremity venous insufficiency -mild hyponatremia secondary to hyperglycemia improved with IV fluids -Tachycardia secondary to intravascular depletion patient will be continued on IV fluids, tachycardia has improved DVT prophylaxis: Subcutaneous heparin GI prophyalxis: Pepcid Full Code The impression and plan of care has been dictated by Leatah Clancy, Nurse Practitioner as directed. Dr. Leida MD I have performed a history and physical examination and medical decision making of this patient, discussed the same with the dictator, and agree with the dictators assessment and plan as written, documented as a scribe. Based on total visit time, I have performed more than 50% of this visit. Objective - Vital Signs Vital signs: Vital Signs Temp 98.9 F 09/26/22 19:09 Pulse 94 09/26/22 19:09 Resp 18 09/26/22 19:09 BP 108/64 09/26/22 19:09 Pulse Ox 95 09/26/22 19:09 FiO2 Intake & Output 09/26/22 09/26/22 09/27/22 06:59 18:59 06:59 Intake Total 100 Output Total 975 Balance -975 100 Intake: Intake, IV Titration 100 Amount Ampicillin-Sulbactam 3 gm 100 In Sodium Chloride 0.9% 100 ml @ 200 mls/hr IVPB Q6HR [facility] Rx#:[id number] Output: Urine 975 Other: Voiding Method Indwelling Catheter Indwelling Catheter - Labs CBC & Chem 7: 09/26/22 08:51 09/26/22 13:11 Labs: Abnormal Lab Results - Last 24 Hours (Table) 09/26/22 09/26/22 09/26/22 Range/Units 08:51 12:09 13:11 WBC 14.1 H (3.8-10.6) k/uL RBC 3.72 L (4.30-5.90) m/uL Hgb 10.7 L (13.0-17.5) gm/dL Hct 32.4 L (39.0-53.0) % Neutrophils # 11.7 H (1.3-7.7) k/uL Creatinine 0.57 L (0.66-1.25) mg/dL POC Glucose (mg/dL) 132 H (70-110) mg/dL 09/26/22 Range/Units 20:26 WBC (3.8-10.6) k/uL RBC (4.30-5.90) m/uL Hgb (13.0-17.5) gm/dL Hct (39.0-53.0) % Neutrophils # (1.3-7.7) k/uL Creatinine (0.66-1.25) mg/dL POC Glucose (mg/dL) 157 H (70-110) mg/dL Microbiology - Last 24 Hours (Table) 09/24/22 17:18 Gram Stain - Final Ankle - Right Wound Culture - Final Methicillin resist S. aureus 09/24/22 13:03 Blood Culture - Preliminary Blood No Growth after 48 hours 09/24/22 13:05 Blood Culture - Preliminary Blood No Growth after 48 hours 09/26/22 07:40 Anaerobic Culture - Preliminary Foot - Right 09/26/22 07:40 Wound Culture - Preliminary Foot - Right Assessment and Plan Time with Patient: Less than 30
[2022-09-27] MEDS: AMPICILLIN-SULBACTAM 3 GM in SODIUM CHLORIDE 0.9% 100 ML IVPB SCH ×4 (00:01→18:44)
[2022-09-27] MEDS: VANCOMYCIN 1,500 MG in SODIUM CHLORIDE 0.9% 500 ML 500 ML IVPB SCH ×2 (02:09→14:41)
--- NOTE | 2022-09-27 02:48 | CONS ---
CONSULTATION HISTORY OF PRESENT ILLNESS: This is a 67-year-old pleasant gentleman, who has been admitted to the ER with history of fever, tachycardia, and chronic wound to both lower extremities involving the right and left heel. The patient is under the care of [facility] at [facility]. The patient came with white cell count of 22.4 and with the shift to the left, and the patient is on IV antibiotic under the care of Infectious Disease. MEDICAL HISTORY: No history of diabetes. The patient has history of hypertension. SURGICAL HISTORY: The patient had hip surgery done in the past. PERSONAL HISTORY: Nonsmoker. PHYSICAL EXAMINATION: GENERAL: The patient was seen in his room, lying comfortably in bed. NECK: Supple. CHEST: Clear. Few crackles at the lung bases. ABDOMEN: Soft, nontender. EXTREMITIES: Femorals are 1+ bilaterally. The patient has bilateral heel wound. Left heel wound, no discharge noted, the wound base is granulating. Right heel wound has some necrotic tissue with some odor. PLAN: Debridement and deep culture, we will arrange. MMODL / NANCYN: [id number] /
[2022-09-27 05:54] LABS: Glucose,Whole Blood 105 mg/dL (70-110)
[2022-09-27] MEDS: GABAPENTIN 300 MG CAP PO SCH ×3 (06:27→21:58)
[2022-09-27] MEDS: INSULIN ASPART (NovoLOG) 100 UNIT/ML VIAL SQ SCH ×3 (09:03→17:08)
[2022-09-27] MEDS: FAMOTIDINE 20 MG TAB PO SCH ×2 (09:14→21:58)
[2022-09-27] MEDS: TAMSULOSIN 0.4 MG CAP.ER.24H PO SCH (09:14)
[2022-09-27 10:47] LABS: African American GFR (CKD) >90 (>60 ml/min/1.73 sqM); Non-African American GFR(CKD) >90 (>60 ml/min/1.73 sqM)
[2022-09-27] MEDS: SODIUM CHLORIDE 0.9% 1,000 ML IV SCH ×2 (11:03→18:40)
[2022-09-27 11:27] LABS: Glucose,Whole Blood 128 mg/dL (70-110)
[2022-09-27] MEDS: HEPARIN SODIUM,PORCINE/PF 5,000 UNIT/0.5 ML SYRINGE SQ SCH ×2 (12:27→21:58)
[2022-09-27] MEDS ORDERED: LIDOCAINE 1% INJ 10MG/ML (30 ML VIAL-PF) SQ ONE (14:18)
--- NOTE | 2022-09-27 14:43 | IR ---
EXAMINATION TYPE: IR cvc insert >=5 years DATE OF EXAM: 09/27/2022 COMPARISON: NONE CLINICAL HISTORY: Nonhealing ulcers Needs long-term intravenous access for antibiotics. PROCEDURE: Hand hygiene obtained with soap and water and alcohol-based hand rub. After informed consent, the skin overlying the right basilic vein was localized with ultrasound and n oted to be compressible and patent. An ultrasound image was obtained and submitted on the patient's chart. The overlying skin was prepped and draped and Lidocaine was used for local anesthesia. A ski n carlos was made with a scalpel. Access was gained to the vein under ultrasound guidance with a 21 ga uge needle and a 0.018 inch wire was advanced. Access site was dilated with Peel-Away sheath and cat heter tailored to the appropriate length and advanced such that the distal tip is at the cavoatrial j unction. Spot image was obtained verifying placement. Catheter was fixed to the skin and a sterile dressing was placed following hemostasis. Catheter was aspirated and flushed with saline. Patient w as discharged in stable condition without complication.Maximal barrier technique is utilized. Ultras ound image is documented on the chart. Ultrasound used with sterile technique. Fluoro time and fluoroscopic images submitted to document procedure: 35 intraoperative C-arm images, 0.1 minutes fluoroscopy time IMPRESSION: STATUS POST ULTRASOUND AND FLUOROSCOPIC GUIDED PICC LINE PLACEMENT, READY FOR USE. THIS PROCEDURE WAS PERFORMED BY THE UNDERSIGNED.
--- NOTE | 2022-09-27 15:04 | P.PN ---
Subjective Progress Note Date: 09/27/22 67-year-old male was transferred from [facility] because of high-grade fevers of 104. Patient has bilateral lower extremity nonhealing ulcers patient the gets debridement of the lower x-ray ulcers and the second acute is ulcer. Patient is also on Cipro and Unasyn. Patient had Pseudomonas and Proteus m irabilis from the previous wound cultures. Patient blood sugars are bit high patient has diabetic foot ulcers do not have any hemoglobin A1c available patient does have leukocytosis no other source of infection was evident patient does have cough with minimal sputum production. 09/25/2022 Patient evaluated today resting in bed eating lunch. No acute events overnight. Bilateral optifoam dressing intact to heels. He has pressure reduction boots on. Wound cultures are pending at this time and patient is currently on IV unasyn and IV vancomycin. Infectious disease is following closely. White count today 24.77. He does have elevated inflammatory markers ESR elevated at 86, CRP 19.30. Lactic acid has normalized to 1.5. Blood pressure improved 113/71. Patient did have an episode of urinary retention with over 1L fluid found in urinary bladder and indwelling catheter was placed. Patient was started on flomax and will complete voiding trial most likely tomorrow. 09/26/2022 Patient is resting in bed today, states he had hard time sleeping last night secondary to pain from his right ankle. There is some impingement noted on xray and soft tissue swelling. Patient underwent debridement of right heel wound at the bedside today and local wound care with meidhoney applied. Wound culture alejandra wing MRSA and deep tissue cultures are pending. White count today has improved to 14.1. Patient continues on IV vancomycin, IV unasyn, infectious disease following. Blood pressures remain in the low 100s systolic. 09/27/2022 Patient is resting in bed. He does have his pressure reduction shoes at rehab, he has been mostly bedrest while here. He did have some increased pain to right ankle which was xray negative for acute fracture, there is some soft tissue swelling. Initial cultures are showing MRSA and his deep tissue cultures are currently pending. Patient received PICC line and will be discharged on IV antibiotics back to subacute rehab. He did complain of some blurry vision during the evening yesterday. He reports today it is gone, states he may have gotten something in his eye. No dizziness, lightheadeness, changes in mentation, focal weakness noted. He states this has happened before. Recommending routine eye screening on discharge. Review of Systems Constitutional: Denied any fatigue denied any fever. Cardio vascular: denied any chest pain, palpitations Gastrointestinal: denied any nausea, vomiting, diarrhea Pulmonary: Denied any shortness of breath cough Neurologic denied any new focal deficits All inpatient medications were reviewed and appropriate changes in these medications as dictated in the interval history and assessment and plan. PHYSICAL EXAMINATION: GENERAL: The patient is alert and oriented x3, not in any acute distress. Well developed, well nourished. HEENT: Pupils are round and equally reacting to light. EOMI. No scleral icterus. No conjunctival pallor. Normocephalic, atraumatic. No pharyngeal erythema. No thyromegaly. CARDIOVASCULAR: S1 and S2 present. No murmurs, rubs, or gallops. PULMONARY: Chest is clear to auscultation, no wheezing or crackles. ABDOMEN: Soft, nontender, nondistended, normoactive bowel sounds. No palpable organomegaly. MUSCULOSKELETAL: No joint swelling or deformity. EXTREMITIES: No cyanosis, clubbing, or pedal edema. NEUROLOGICAL: Gross neurological examination did not reveal any focal deficits. SKIN: Multiple bilateral lower extremity ulcerations with cellulitis of bilateral lower x-ray significant on the left leg extending up to the midshin area and a sacral decubitus ulcer. Currently right heel and ankle dressing in tact MANNY bandage in place. Assessment and plan -Sepsis secondary to multiple bilateral lower extremity ulcerations which are diabetic foot ulcers and a sacral decubitus ulcer, right heel wound culture showing MRSA patient underwent surgical debridement to right heel and deep tissu es cultures are pending. PICC line now in place with anticipation for return to rehab possibly tomorrow or friday. -type 2 diabetes mellitus -Hypertension: blood pressure improving with gentle hydration, fluids have been decreased to 50 mls per hour. -Bilateral lower extremity venous insufficiency -mild hyponatremia secondary to hyperglycemia improved with IV fluids -Tachycardia secondary to intravascular depletion patient will be continued on IV fluids, tachycardia has improved DVT prophylaxis: Subcutaneous heparin GI prophyalxis: Pepcid Full Code PICC line in place, pending finalized cultures and ID recommendations possible return to rehab tomorrow or friday with IV antibiotics and local wound care to right heel. The impression and plan of care has been dictated by Leatha Clancy, Nurse Practitioner as directed. Dr. Leida MD I have performed a history and physical examination and medical decision making of this patient, discussed the same with the dictator, and agree with the dictators assessment and plan as written, documented as a scribe. Based on total visit time, I have performed more than 50% of this visit. Objective - Vital Signs Vital signs: Vital Signs Temp 99.2 F 09/27/22 14:00 Pulse 90 09/27/22 14:00 Resp 17 09/27/22 14:00 BP 120/76 09/27/22 14:00 Pulse Ox 96 09/27/22 14:00 FiO2 Intake & Output 09/26/22 09/27/22 09/27/22 18:59 06:59 18:59 Intake Total 100 Output Total 1000 4175 Balance 100 -1000 -4175 Intake: Intake, IV Titration 100 Amount Ampicillin-Sulbactam 3 gm 100 In Sodium Chloride 0.9% 100 ml @ 200 mls/hr IVPB Q6HR [facility] Rx#:[id number] Output: Urine 1000 4175 Uretheral (Mayer) 3400 Other: Voiding Method Indwelling Catheter Indwelling Catheter Indwelling Catheter - Labs CBC & Chem 7: 09/26/22 08:51 09/27/22 10:22 Labs: Abnormal Lab Results - Last 24 Hours (Table) 09/26/22 09/27/22 09/27/22 Range/Units 20:26 10: 11:25 Creatinine 0.60 L (0.66-1.25) mg/dL POC Glucose (mg/dL) 157 H 128 H (70-110) mg/dL Microbiology - Last 24 Hours (Table) 09/26/22 07:40 Gram Stain - Preliminary Foot - Right Wound Culture - Preliminary 09/24/22 17:18 Anaerobic Culture - Preliminary Ankle - Left 09/24/22 17:18 Gram Stain - Final Ankle - Right Wound Culture - Final Methicillin resist S. aureus 09/24/22 13:03 Blood Culture - Preliminary Blood No Growth after 48 hours 09/24/22 13:05 Blood Culture - Preliminary Blood No Growth after 48 hours 09/26/22 07:40 Anaerobic Culture - Preliminary Foot - Right Assessment and Plan Time with Patient: Less than 30
[2022-09-27 16:46] LABS: Glucose,Whole Blood 125 mg/dL (70-110)
[2022-09-27 20:08] LABS: Glucose,Whole Blood 209 mg/dL (70-110)
[2022-09-27] MEDS: MELATONIN 5 MG TABLET PO SCH (21:58)
[2022-09-27] MEDS: INSULIN DETEMIR (LEVEMIR) 100 UNIT/ML SYR SQ SCH (21:58)
[2022-09-28] MEDS: AMPICILLIN-SULBACTAM 3 GM in SODIUM CHLORIDE 0.9% 100 ML IVPB SCH ×2 (00:38→06:32)
[2022-09-28] MEDS: VANCOMYCIN 1,500 MG in SODIUM CHLORIDE 0.9% 500 ML 500 ML IVPB SCH ×2 (01:30→13:39)
[2022-09-28] MEDS: GABAPENTIN 300 MG CAP PO SCH ×3 (06:33→22:16)
[2022-09-28] MEDS: INSULIN ASPART (NovoLOG) 100 UNIT/ML VIAL SQ SCH ×3 (08:04→18:42)
[2022-09-28] MEDS: HEPARIN SODIUM,PORCINE/PF 5,000 UNIT/0.5 ML SYRINGE SQ SCH ×2 (08:05→22:16)
[2022-09-28] MEDS: FAMOTIDINE 20 MG TAB PO SCH ×2 (08:05→22:16)
[2022-09-28] MEDS: TAMSULOSIN 0.4 MG CAP.ER.24H PO SCH (08:05)
[2022-09-28 08:20] LABS: Basophils % (A) 0 %; Eosinophils # (A) 0.5 k/uL (0-0.7); Eosinophils % (A) 6 %; HCT 30.3 % (39.0-53.0); HGB 9.7 gm/dL (13.0-17.5); Hypochromasia Moderate; Lymphocytes # (A) 1.8 k/uL (1.0-4.8); Lymphocytes % (A) 19 %; MCH 27.9 pg (25.0-35.0); MCV 87.1 fL (80.0-100.0); Mean Platelet Volume 8.8; Monocytes # (A) 0.6 k/uL (0-1.0); Monocytes % (A) 6 %; Neutrophils # (A) 6.7 k/uL (1.3-7.7); Neutrophils % (A) 68 %; Platelet Count 183 k/uL (150-450); RBC 3.47 m/uL (4.30-5.90); RDW 13.7 % (11.5-15.5); WBC 9.8 k/uL (3.8-10.6)
[2022-09-28 08:26] LABS: African American GFR (CKD) >90 (>60 ml/min/1.73 sqM); Anion Gap 9 mmol/L; Blood Urea Nitrogen 13 mg/dL (9-20); Calcium 8.1 mg/dL (8.4-10.2); Carbon Dioxide 26 mmol/L (22-30); Chloride 100 mmol/L (98-107); Glucose 104 mg/dL (74-99); Magnesium 1.6 mg/dL (1.6-2.3); Non-African American GFR(CKD) >90 (>60 ml/min/1.73 sqM); Potassium 3.7 mmol/L (3.5-5.1); Sodium 135 mmol/L (137-145)
--- NOTE | 2022-09-28 10:07 | P.PN ---
Subjective Progress Note Date: 09/25/22 Principal diagnosis: Fever and infected right heel pressure ulcer Patient is a 67-year old male with multiple comorbidities and intermediate resident brought into the hospital concerning for fever tachycardia patient noticed to have a right heel infected pressure ulcer and concern for possible cellulitis. On today's evaluation that is 09/25/2022 the patient is afebrile patient is breathing comfortably on room air, patient denies having any chest pain or shortness of breath or cough no abdominal pain and no diarrhea Objective - Vital Signs Vital signs: Vital Signs Temp 98.5 F 09/25/22 20:00 Pulse 88 09/25/22 20:00 Resp 17 09/25/22 20:00 BP 106/64 09/25/22 20:00 Pulse Ox 96 09/25/22 20:00 FiO2 Intake & Output 09/25/22 09/25/22 09/26/22 06:59 18:59 06:59 Intake Total 1880 960 Output Total 1450 800 Balance 430 160 Weight 90.718 kg 90.718 kg Intake: Intake, IV Titration 1400 960 Amount Ampicillin-Sulbactam 3 gm 200 200 In Sodium Chloride 0.9% 100 ml @ 200 mls/hr IVPB Q6HR [facility] Rx#:[id number] Magnesium Sulfate-D5w Pmx 200 1 gm In Dextrose/Water 1 100ml.bag @ 100 mls/hr IVPB Q1H [facility] Rx#: [id number] Piperacillin-Tazobactam 3 50 .375 gm In Sodium Chloride 0.9% 100 ml @ 25 mls/hr IVPB Q8H [facility] Rx#: [id number] Sodium Chloride 0.9% 1, 650 560 000 ml @ 75 mls/hr IV . [id number] [facility] Rx#:[id number] Vancomycin 1,500 mg In 500 Sodium Chloride 0.9% 500 ml 500 ml @ 167 mls/hr IVPB Q16H [facility] Rx#: [id number] Oral 480 Output: Urine 1450 800 Uretheral (Mayer) 1150 Other: Voiding Method Diaper Indwelling Catheter Indwelling Catheter # Bowel Movements 1 - Exam GENERAL DESCRIPTION: An elderly male lying in bed in no distress RESPIRATORY SYSTEM: Unlabored breathing , decreased breath sounds at bases HEART: S1 S2 regular rate and rhythm , ABDOMEN: Soft , no tenderness EXTREMITIES: Right heel wound is currently dressed no drainage of the dressing - Labs CBC & Chem 7: 09/28/22 07:21 09/28/22 07:21 Labs: Abnormal Lab Results - Last 24 Hours (Table) 09/25/22 09/25/22 09/25/22 Range/Units 01:50 02:25 05:42 WBC 24.77 H (4.50-10.00) X 10*3/uL RBC 3.95 L (4.40-5.60) X 10*6/uL Hgb 10.8 L (13.0-17.0) g/dL Hct 33.8 L (39.6-50.0) % ESR 86 H (0-20) mm/Hr BUN/Creatinine Ratio (12.00-20.00) Ratio Glucose (70-110) mg/dL POC Glucose (mg/dL) 198 H (70-110) mg/dL Calcium (8.7-10.3) mg/dL C-Reactive Protein (0.00-0.80) mg/dL Urine Protein 2+ H (Negative) Urine Blood Small H (Negative) Urine Mucus Rare H (None) /hpf 09/25/22 09/25/22 09/25/22 Range/Units 05:42 06:45 11:50 WBC (4.50-10.00) X 10*3/uL RBC (4.40-5.60) X 10*6/uL Hgb (13.0-17.0) g/dL Hct (39.6-50.0) % ESR (0-20) mm/Hr BUN/Creatinine Ratio 28.11 H (12.00-20.00) Ratio Glucose 151 H (70-110) mg/dL POC Glucose (mg/dL) 141 H 206 H (70-110) mg/dL Calcium 8.3 L (8.7-10.3) mg/dL C-Reactive Protein 19.30 H (0.00-0.80) mg/dL Urine Protein (Negative) Urine Blood (Negative) Urine Mucus (None) /hpf 09/25/22 09/25/22 Range/Units 16:44 20:28 WBC (4.50-10.00) X 10*3/uL RBC (4.40-5.60) X 10*6/uL Hgb (13.0-17.0) g/dL Hct (39.6-50.0) % ESR (0-20) mm/Hr BUN/Creatinine Ratio (12.00-20.00) Ratio Glucose (70-110) mg/dL POC Glucose (mg/dL) 145 H 164 H (70-110) mg/dL Calcium (8.7-10.3) mg/dL C-Reactive Protein (0.00-0.80) mg/dL Urine Protein (Negative) Urine Blood (Negative) Urine Mucus (None) /hpf Microbiology - Last 24 Hours (Table) 09/24/22 17:18 Gram Stain - Preliminary Ankle - Right Wound Culture - Preliminary 09/24/22 13:05 Blood Culture - Preliminary Blood No Growth after 24 hours 09/24/22 13:03 Blood Culture - Preliminary Blood No Growth after 24 hours 09/24/22 17:18 Anaerobic Culture - Preliminary Ankle - Left Assessment and Plan (1) Decubitus ulcer, heel, right, unstageable Current Visit: Yes Status: Acute Code(s): L89.610 - PRESSURE ULCER OF RIGHT HEEL, UNSTAGEABLE SNOMED Code(s): 622647804 Plan: 1patient present to hospital with sepsis in this patient who did have a fever tachycardia elevated white count source likely bilateral heel infected pressure ulcer with secondary cellulitis being a intermediate resident will need to cover for the resistant gram-positive as well as gram-negative pathogen. 2we will consult vascular surgery for evaluation for debridement of this ulcer and deep culture. 3patient to continue with the vancomycin and Unasyn while waiting for the cultures to finalize Time with Patient: Less than 30
--- NOTE | 2022-09-28 10:14 | P.PN ---
Subjective Progress Note Date: 09/26/22 Principal diagnosis: Fever and infected right heel pressure ulcer Patient is a 67-year old male with multiple comorbidities and [facility] resident brought into the hospital concerning for fever tachycardia patient noticed to have a right heel infected pressure ulcer and concern for possible cellulitis. Patient has been evaluated by vascular surgery and did have patience ridement of the right heel wound and cultures on 09/26/2022 On today's evaluation that is 09/26/2022 the patient remains to be afebrile patient is breathing comfortably on room air, patient denies chest pain or shortness of breath or cough, the patient denies abdominal pain and no diarrhea, pain to the right heel is currently controlled Objective - Vital Signs Vital signs: Vital Signs Temp 98.2 F 09/26/22 07:58 Pulse 90 09/26/22 07:58 Resp 17 09/26/22 07:58 BP 114/71 09/26/22 07:58 Pulse Ox 96 09/26/22 07:58 FiO2 Intake & Output 09/25/22 09/26/22 09/26/22 18:59 06:59 18:59 Intake Total 960 100 Output Total 800 975 Balance 160 -975 100 Weight 90.718 kg Intake: Intake, IV Titration 960 100 Amount Ampicillin-Sulbactam 3 gm 200 100 In Sodium Chloride 0.9% 100 ml @ 200 mls/hr IVPB Q6HR [facility] Rx#:[id number] Magnesium Sulfate-D5w Pmx 200 1 gm In Dextrose/Water 1 100ml.bag @ 100 mls/hr IVPB Q1H [facility] Rx#: [id number] Sodium Chloride 0.9% 1, 560 000 ml @ 75 mls/hr IV . [id number] [facility] Rx#:[id number] Output: Urine 800 975 Other: Voiding Method Indwelling Catheter Indwelling Catheter Indwelling Catheter - Exam GENERAL DESCRIPTION: An elderly male lying in bed in no distress RESPIRATORY SYSTEM: Unlabored breathing , decreased breath sounds at bases HEART: S1 S2 regular rate and rhythm , ABDOMEN: Soft , no tenderness EXTREMITIES: Right heel wound is currently dressed no drainage of the dressing - Labs CBC & Chem 7: 09/28/22 07:21 09/28/22 07:21 Labs: Abnormal Lab Results - Last 24 Hours (Table) 09/25/22 09/25/22 09/26/22 Range/Units 16:44 20:28 08:51 WBC 14.1 H (3.8-10.6) k/uL RBC 3.72 L (4.30-5.90) m/uL Hgb 10.7 L (13.0-17.5) gm/dL Hct 32.4 L (39.0-53.0) % Neutrophils # 11.7 H (1.3-7.7) k/uL Creatinine (0.66-1.25) mg/dL POC Glucose (mg/dL) 145 H 164 H (70-110) mg/dL 09/26/22 09/26/22 Range/Units 12:09 13:11 WBC (3.8-10.6) k/uL RBC (4.30-5.90) m/uL Hgb (13.0-17.5) gm/dL Hct (39.0-53.0) % Neutrophils # (1.3-7.7) k/uL Creatinine 0.57 L (0.66-1.25) mg/dL POC Glucose (mg/dL) 132 H (70-110) mg/dL Microbiology - Last 24 Hours (Table) 09/24/22 13:03 Blood Culture - Preliminary Blood No Growth after 48 hours 09/24/22 13:05 Blood Culture - Preliminary Blood No Growth after 48 hours 09/26/22 07:40 Anaerobic Culture - Preliminary Foot - Right 09/26/22 07:40 Wound Culture - Preliminary Foot - Right 09/24/22 17:18 Gram Stain - Preliminary Ankle - Right Wound Culture - Preliminary Presumptive MRSA Assessment and Plan (1) Stage IV pressure ulcer of right heel Current Visit: Yes Status: Acute Code(s): L89.614 - PRESSURE ULCER OF RIGHT HEEL, STAGE 4 SNOMED Code(s): 05006520330685 Plan: 1patient present to hospital with sepsis in this patient who did have a fever tachycardia elevated white count source likely bilateral heel infected pressure ulcer with secondary cellulitis being a [facility] resident will need to cover for the resistant gram-positive as well as gram-negative pathogen. 2patient has been evaluated by vascular surgery and did have debridement of this ulcer and deep culture. 3patient to continue with the vancomycin and Unasyn while waiting for the cultures to finalize Time with Patient: Less than 30
--- NOTE | 2022-09-28 10:17 | P.PN ---
Subjective Progress Note Date: 09/27/22 Principal diagnosis: Fever and infected right heel pressure ulcer Patient is a 67-year old male with multiple comorbidities and [facility] resident brought into the hospital concerning for fever tachycardia patient noticed to have a right heel infected pressure ulcer and concern for possible cellulitis. Patient has been evaluated by vascular surgery and did have patience ridement of the right heel wound and cultures on 09/26/2022 On today's evaluation that is 09/27/2022 the patient continues to be afebrile patient is breathing comfortably on room air, patient denies chest pain or shortness of breath or cough, the patient denies abdominal pain and no diarrhea, the patient pain to the right heel is currently controlled and no new symptoms Objective - Vital Signs Vital signs: Vital Signs Temp 98.5 F 09/27/22 07:54 Pulse 89 09/27/22 07:54 Resp 17 09/27/22 07:54 BP 124/71 09/27/22 07:54 Pulse Ox 97 09/27/22 07:54 FiO2 Intake & Output 09/26/22 09/27/22 09/27/22 18:59 06:59 18:59 Intake Total 100 Output Total 1000 4175 Balance 100 -1000 -4175 Intake: Intake, IV Titration 100 Amount Ampicillin-Sulbactam 3 gm 100 In Sodium Chloride 0.9% 100 ml @ 200 mls/hr IVPB Q6HR [facility] Rx#:[id number] Output: Urine 1000 4175 Uretheral (Mayer) 3400 Other: Voiding Method Indwelling Catheter Indwelling Catheter Indwelling Catheter - Exam GENERAL DESCRIPTION: An elderly male lying in bed in no distress RESPIRATORY SYSTEM: Unlabored breathing , decreased breath sounds at bases HEART: S1 S2 regular rate and rhythm , ABDOMEN: Soft , no tenderness EXTREMITIES: Right heel wound with a bone palpable noticed to have slight bleeding minimal slough tissue, left heel wound with some slough tissue no surrounding redness Patient did have a stage III sacral pressure ulcer with some slough tissue no significant surrounding redness - Labs CBC & Chem 7: 09/28/22 07:21 09/28/22 07:21 Labs: Abnormal Lab Results - Last 24 Hours (Table) 09/26/22 09/26/22 09/27/22 Range/Units 13:11 20:26 10: Creatinine 0.57 L 0.60 L (0.66-1.25) mg/dL POC Glucose (mg/dL) 157 H (70-110) mg/dL 09/27/22 Range/Units 11:25 Creatinine (0.66-1.25) mg/dL POC Glucose (mg/dL) 128 H (70-110) mg/dL Microbiology - Last 24 Hours (Table) 09/26/22 07:40 Gram Stain - Preliminary Foot - Right Wound Culture - Preliminary 09/24/22 17:18 Anaerobic Culture - Preliminary Ankle - Left 09/24/22 17:18 Gram Stain - Final Ankle - Right Wound Culture - Final Methicillin resist S. aureus 09/24/22 13:03 Blood Culture - Preliminary Blood No Growth after 48 hours 09/24/22 13:05 Blood Culture - Preliminary Blood No Growth after 48 hours 09/26/22 07:40 Anaerobic Culture - Preliminary Foot - Right Assessment and Plan (1) Pressure ulcer of sacral region, stage 3 Current Visit: Yes Status: Acute Code(s): L89.153 - PRESSURE ULCER OF SACRAL REGION, STAGE 3 SNOMED Code(s): 65805672480556746 (2) Stage IV pressure ulcer of right heel Current Visit: Yes Status: Acute Code(s): L89.614 - PRESSURE ULCER OF RIGHT HEEL, STAGE 4 SNOMED Code(s): 09181282832796 Plan: 1patient present to hospital with sepsis in this patient who did have a fever tachycardia elevated white count source likely bilateral heel infected pressure ulcer with secondary cellulitis being a [facility] resident will need to cover for the resistant gram-positive as well as gram-negative pathogen. 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
[2022-09-28] MEDS ORDERED: VANCOMYCIN TROUGH DUE 1 EACH MISC MISCELLANE ONE (12:00)
[2022-09-28] MEDS ORDERED: Magnesium Replacement Protocol 1 EACH MISC MISCELLANE PRN (13:16)
--- NOTE | 2022-09-28 13:19 | P.PN ---
Subjective Progress Note Date: 09/28/22 67-year-old male was transferred from [facility] because of high-grade fevers of 104. Patient has bilateral lower extremity nonhealing ulcers patient the gets debridement of the lower x-ray ulcers and the second acute is ulcer. Patient is also on Cipro and Unasyn. Patient had Pseudomonas and Proteus m irabilis from the previous wound cultures. Patient blood sugars are bit high patient has diabetic foot ulcers do not have any hemoglobin A1c available patient does have leukocytosis no other source of infection was evident patient does have cough with minimal sputum production. 09/25/2022 Patient evaluated today resting in bed eating lunch. No acute events overnight. Bilateral optifoam dressing intact to heels. He has pressure reduction boots on. Wound cultures are pending at this time and patient is currently on IV unasyn and IV vancomycin. Infectious disease is following closely. White count today 24.77. He does have elevated inflammatory markers ESR elevated at 86, CRP 19.30. Lactic acid has normalized to 1.5. Blood pressure improved 113/71. Patient did have an episode of urinary retention with over 1L fluid found in urinary bladder and indwelling catheter was placed. Patient was started on flomax and will complete voiding trial most likely tomorrow. 09/26/2022 Patient is resting in bed today, states he had hard time sleeping last night secondary to pain from his right ankle. There is some impingement noted on xray and soft tissue swelling. Patient underwent debridement of right heel wound at the bedside today and local wound care with meidhoney applied. Wound culture alejandra wing MRSA and deep tissue cultures are pending. White count today has improved to 14.1. Patient continues on IV vancomycin, IV unasyn, infectious disease following. Blood pressures remain in the low 100s systolic. 09/27/2022 Patient is resting in bed. He does have his pressure reduction shoes at rehab, he has been mostly bedrest while here. He did have some increased pain to right ankle which was xray negative for acute fracture, there is some soft tissue swelling. Initial cultures are showing MRSA and his deep tissue cultures are currently pending. Patient received PICC line and will be discharged on IV antibiotics back to subacute rehab. He did complain of some blurry vision during the evening yesterday. He reports today it is gone, states he may have gotten something in his eye. No dizziness, lightheadeness, changes in mentation, focal weakness noted. He states this has happened before. Recommending routine eye screening on discharge. 09/28/2022 No acute events overnight. Patient is being monitored closely and continues on IV antibiotics has received PICC line. He is receiving local wound care to bilateral heel pressure ulcers as well as an unstageable ulcer on his coccyx bu ttock. Local wound care with medihoney per infectious disease. White count has normalized down to 9.8. Sodium is 135, BUN 13, creatinine 0.55. Blood glucose 104, calcium 8.1. Magnesium 1.6. Discharge back to rehab most likely on friday. Review of Systems Constitutional: Denied any fatigue denied any fever. Cardio vascular: denied any chest pain, palpitations Gastrointestinal: denied any nausea, vomiting, diarrhea Pulmonary: Denied any shortness of breath cough Neurologic denied any new focal deficits All inpatient medications were reviewed and appropriate changes in these medications as dictated in the interval history and assessment and plan. PHYSICAL EXAMINATION: GENERAL: The patient is alert and oriented x3, not in any acute distress. Well developed, well nourished. HEENT: Pupils are round and equally reacting to light. EOMI. No scleral icterus. No conjunctival pallor. Normocephalic, atraumatic. No pharyngeal erythema. No thyromegaly. CARDIOVASCULAR: S1 and S2 present. No murmurs, rubs, or gallops. PULMONARY: Chest is clear to auscultation, no wheezing or crackles. ABDOMEN: Soft, nontender, nondistended, normoactive bowel sounds. No palpable organomegaly. MUSCULOSKELETAL: No joint swelling or deformity. EXTREMITIES: No cyanosis, clubbing, or pedal edema. NEUROLOGICAL: Gross neurological examination did not reveal any focal deficits. SKIN: Multiple bilateral lower extremity ulcerations with cellulitis of bilateral lower x-ray significant on the left leg extending up to the midshin area and a sacral decubitus ulcer. Currently right heel and ankle dressing in t act MANNY bandage in place. Assessment and plan -Sepsis secondary to multiple bilateral lower extremity ulcerations which are diabetic foot ulcers bilateral heel and also top of left foot and a sacral decubitus ulcer which is unstageable, right heel wound culture showing MRSA patient underwent surgical debridement to right heel and deep tissues cultures are pending. PICC line now in place with anticipation for return to rehab possibly tomorrow or friday. Continue on IV vancomycin. -type 2 diabetes mellitus -Hypotension: blood pressure improved recommend monitoring off IV fluids -Bilateral lower extremity venous insufficiency -mild hyponatremia secondary to hyperglycemia improved with IV fluids -Tachycardia secondary to intravascular depletion patient will be continued on IV fluids, tachycardia has improved DVT prophylaxis: Subcutaneous heparin GI prophyalxis: Pepcid Full Code PICC line in place, pending finalized cultures and ID recommendations possible return to rehab tomorrow or friday with IV antibiotics and local wound care to right heel, left heel, and sacral decubitus ulcer with mediney. The impression and plan of care has been dictated by Leatha Clancy Nurse Practitioner as directed. Dr. Leida MD I have performed a history and physical examination and medical decision making of this patient, discussed the same with the dictator, and agree with the dictators assessment and plan as written, documented as a scribe. Based on total visit time, I have performed more than 50% of this visit. Objective - Vital Signs Vital signs: Vital Signs Temp 98.5 F 09/28/22 07:48 Pulse 86 09/28/22 07:48 Resp 17 09/28/22 07:48 BP 136/61 09/28/22 07:48 Pulse Ox 94 L 09/28/22 07:48 FiO2 Intake & Output 09/27/22 09/28/22 09/28/22 18:59 06:59 18:59 Intake Total 120 Output Total 8775 1900 Balance -8775 -1900 120 Intake: Oral 120 Output: Urine 8775 1900 Uretheral (Mayer) 3400 800 Other: Voiding Method Indwelling Catheter Indwelling Catheter # Bowel Movements 1 - Labs CBC & Chem 7: 09/28/22 07:21 09/28/22 07:21 Labs: Abnormal Lab Results - Last 24 Hours (Table) 09/27/22 09/27/22 09/28/22 Range/Units 16:44 20:07 07:21 RBC 3.47 L (4.30-5.90) m/uL Hgb 9.7 L (13.0-17.5) gm/dL Hct 30.3 L (39.0-53.0) % Sodium (137-145) mmol/L Creatinine (0.66-1.25) mg/dL Glucose (74-99) mg/dL POC Glucose (mg/dL) 125 H 209 H (70-110) mg/dL Calcium (8.4-10.2) mg/dL 09/28/22 Range/Units 07:21 RBC (4.30-5.90) m/uL Hgb (13.0-17.5) gm/dL Hct (39.0-53.0) % Sodium 135 L (137-145) mmol/L Creatinine 0.55 L (0.66-1.25) mg/dL Glucose 104 H (74-99) mg/dL POC Glucose (mg/dL) (70-110) mg/dL Calcium 8.1 L (8.4-10.2) mg/dL Microbiology - Last 24 Hours (Table) 09/24/22 13:05 Blood Culture - Preliminary Blood No Growth after 72 hours 09/24/22 13:03 Blood Culture - Preliminary Blood No Growth after 72 hours Assessment and Plan Time with Patient: Less than 30
[2022-09-28] MEDS: MAGNESIUM SULFATE-D5W PMX 1 GM in DEXTROSE/WATER 1 100ML.BAG IVPB SCH ×2 (15:00→15:43)
[2022-09-28 16:36] LABS: Glucose,Whole Blood 122 mg/dL (70-110)
[2022-09-28 20:43] LABS: Glucose,Whole Blood 136 mg/dL (70-110)
[2022-09-28] MEDS: MELATONIN 5 MG TABLET PO SCH (22:16)
[2022-09-28] MEDS: INSULIN DETEMIR (LEVEMIR) 100 UNIT/ML SYR SQ SCH (22:16)
[2022-09-28] MEDS: HYDROcodone/APAP 5-325MG 1 EACH TAB PO PRN (22:20)
[2022-09-29] MEDS: VANCOMYCIN 1,500 MG in SODIUM CHLORIDE 0.9% 500 ML 500 ML IVPB SCH ×2 (01:23→14:08)
[2022-09-29] MEDS: GABAPENTIN 300 MG CAP PO SCH ×3 (05:51→21:39)
[2022-09-29 06:09] LABS: Glucose,Whole Blood 109 mg/dL (70-110)
[2022-09-29 06:30] LABS: African American GFR (CKD) >90 (>60 ml/min/1.73 sqM); Magnesium 1.8 mg/dL (1.6-2.3); Non-African American GFR(CKD) >90 (>60 ml/min/1.73 sqM)
[2022-09-29] MEDS: HEPARIN SODIUM,PORCINE/PF 5,000 UNIT/0.5 ML SYRINGE SQ SCH ×2 (07:56→21:40)
[2022-09-29] MEDS: INSULIN ASPART (NovoLOG) 100 UNIT/ML VIAL SQ SCH ×3 (07:56→17:40)
[2022-09-29] MEDS: TAMSULOSIN 0.4 MG CAP.ER.24H PO SCH (07:56)
[2022-09-29] MEDS: FAMOTIDINE 20 MG TAB PO SCH ×2 (07:57→21:39)
[2022-09-29] MEDS: amLODIPine 5 MG TAB PO SCH (09:04)
[2022-09-29] MEDS: MAGNESIUM OXIDE 400 MG TAB PO SCH (09:04)
[2022-09-29 11:11] LABS: Glucose,Whole Blood 126 mg/dL (70-110)
--- NOTE | 2022-09-29 13:05 | P.PN ---
Subjective Progress Note Date: 09/29/22 67-year-old male was transferred from half-way because of high-grade fevers of 104. Patient has bilateral lower extremity nonhealing ulcers patient the gets debridement of the lower x-ray ulcers and the second acute is ulcer. Patient is also on Cipro and Unasyn. Patient had Pseudomonas and Proteus m irabilis from the previous wound cultures. Patient blood sugars are bit high patient has diabetic foot ulcers do not have any hemoglobin A1c available patient does have leukocytosis no other source of infection was evident patient does have cough with minimal sputum production. 09/25/2022 Patient evaluated today resting in bed eating lunch. No acute events overnight. Bilateral optifoam dressing intact to heels. He has pressure reduction boots on. Wound cultures are pending at this time and patient is currently on IV unasyn and IV vancomycin. Infectious disease is following closely. White count today 24.77. He does have elevated inflammatory markers ESR elevated at 86, CRP 19.30. Lactic acid has normalized to 1.5. Blood pressure improved 113/71. Patient did have an episode of urinary retention with over 1L fluid found in urinary bladder and indwelling catheter was placed. Patient was started on flomax and will complete voiding trial most likely tomorrow. 09/26/2022 Patient is resting in bed today, states he had hard time sleeping last night secondary to pain from his right ankle. There is some impingement noted on xray and soft tissue swelling. Patient underwent debridement of right heel wound at the bedside today and local wound care with meidhoney applied. Wound culture alejandra wing MRSA and deep tissue cultures are pending. White count today has improved to 14.1. Patient continues on IV vancomycin, IV unasyn, infectious disease following. Blood pressures remain in the low 100s systolic. 09/27/2022 Patient is resting in bed. He does have his pressure reduction shoes at rehab, he has been mostly bedrest while here. He did have some increased pain to right ankle which was xray negative for acute fracture, there is some soft tissue swelling. Initial cultures are showing MRSA and his deep tissue cultures are currently pending. Patient received PICC line and will be discharged on IV antibiotics back to subacute rehab. He did complain of some blurry vision during the evening yesterday. He reports today it is gone, states he may have gotten something in his eye. No dizziness, lightheadeness, changes in mentation, focal weakness noted. He states this has happened before. Recommending routine eye screening on discharge. 09/28/2022 No acute events overnight. Patient is being monitored closely and continues on IV antibiotics has received PICC line. He is receiving local wound care to bilateral heel pressure ulcers as well as an unstageable ulcer on his coccyx bu ttock. Local wound care with medihoney per infectious disease. White count has normalized down to 9.8. Sodium is 135, BUN 13, creatinine 0.55. Blood glucose 104, calcium 8.1. Magnesium 1.6. Discharge back to rehab most likely on friday. 09/29/2022 No acute events overnight patient reports sleeping well. Pain mostly to the right heel about a 4/10 and he is receiving pain management. Local wound care continues to bilateral pressure ulcers and coccyx/buttock with medihoney gel. He has PICC line in place and IV antibiotics in the form of vancomycin. Blood pressure slightly elevated today at 156/77 and patient started on amlodipine. He is afebrile. Blood glucose in the 120s. Review of Systems Constitutional: Denied any fatigue denied any fever. Cardio vascular: denied any chest pain, palpitations Gastrointestinal: denied any nausea, vomiting, diarrhea Pulmonary: Denied any shortness of breath cough Neurologic denied any new focal deficits All inpatient medications were reviewed and appropriate changes in these medications as dictated in the interval history and assessment and plan. PHYSICAL EXAMINATION: GENERAL: The patient is alert and oriented x3, not in any acute distress. Well developed, well nourished. HEENT: Pupils are round and equally reacting to light. EOMI. No scleral icterus. No conjunctival pallor. Normocephalic, atraumatic. No pharyngeal erythema. No thyromegaly. CARDIOVASCULAR: S1 and S2 present. No murmurs, rubs, or gallops. PULMONARY: Chest is clear to auscultation, no wheezing or crackles. ABDOMEN: Soft, nontender, nondistended, normoactive bowel sounds. No palpable organomegaly. MUSCULOSKELETAL: No joint swelling or deformity. EXTREMITIES: No cyanosis, clubbing, or pedal edema. NEUROLOGICAL: Gross neurological examination did not reveal any focal deficits. SKIN: Multiple bilateral lower extremity ulcerations with cellulitis of bilateral lower x-ray significant on the left leg extending up to the midshin area and a sacral decubitus ulcer. Currently right heel and ankle dressing in tact MANNY bandage in place. Assessment and plan -Sepsis secondary to multiple bilateral lower extremity ulcerations which are diabetic foot ulcers bilateral heel and also top of left foot and a sacral decubitus ulcer which is unstageable, right heel wound culture showing MRSA patient underwent surgical debridement to right heel and deep tissues cultures showing MRSA as well as dane albicans. PICC line now in place with anticipation for return to rehab possibly friday. Continue on IV vancomycin. -type 2 diabetes mellitus -Hypotension: which has improved patient now has some hypertension. -Bilateral lower extremity venous insufficiency -mild hyponatremia secondary to hyperglycemia improved with IV fluids -Tachycardia secondary to intravascular depletion patient will be continued on IV fluids, tachycardia has improved DVT prophylaxis: Subcutaneous heparin GI prophyalxis: Pepcid Full Code PICC line in place, Local and deep tissue cultures to right heel wound showing MRSA and continues on IV vancomycin possible return to rehab tomorrow or friday with IV antibiotics and local wound care to right heel, left heel, and sacral decubitus ulcer with [facility]. The impression and plan of care has been dictated by Leatha Clancy Nurse Practitioner as directed. Dr. Leida MD I have performed a history and physical examination and medical decision making of this patient, discussed the same with the dictator, and agree with the dictators assessment and plan as written, documented as a scribe. Based on total visit time, I have performed more than 50% of this visit. Objective - Vital Signs Vital signs: Vital Signs Temp 97.9 F 09/29/22 07:59 Pulse 87 09/29/22 07:59 Resp 18 09/29/22 07:59 BP 156/77 09/29/22 07:59 Pulse Ox 94 L 09/29/22 07:59 FiO2 Intake & Output 09/28/22 09/29/22 09/29/22 18:59 06:59 18:59 Intake Total 920 Output Total 1500 1800 Balance -580 -1800 Intake: Intake, IV Titration 800 Amount Ampicillin-Sulbactam 3 gm 100 In Sodium Chloride 0.9% 100 ml @ 200 mls/hr IVPB Q6HR [facility] Rx#:[id number] Magnesium Sulfate-D5w Pmx 200 1 gm In Dextrose/Water 1 100ml.bag @ 100 mls/hr IVPB Q1H [facility] Rx#: [id number] Vancomycin 1,500 mg In 500 Sodium Chloride 0.9% 500 ml 500 ml @ 167 mls/hr IVPB Q12H [facility] Rx#: [id number] Oral 120 Output: Urine 1500 1800 - Labs CBC & Chem 7: 09/28/22 07:21 09/29/22 04:34 Labs: Abnormal Lab Results - Last 24 Hours (Table) 09/28/22 09/28/22 09/29/22 Range/Units 16:35 20:42 04:34 Creatinine 0.50 L (0.66-1.25) mg/dL POC Glucose (mg/dL) 122 H 136 H (70-110) mg/dL 09/29/22 Range/Units 11:09 Creatinine (0.66-1.25) mg/dL POC Glucose (mg/dL) 126 H (70-110) mg/dL Microbiology - Last 24 Hours (Table) 09/26/22 07:40 Gram Stain - Final Foot - Right Wound Culture - Final Methicillin resist S. aureus 09/24/22 17:18 Anaerobic Culture - Final Ankle - Left 09/26/22 07:40 Anaerobic Culture - Preliminary Foot - Right Dane albicans 09/24/22 13:05 Blood Culture - Preliminary Blood No Growth after 96 hours 09/24/22 13:03 Blood Culture - Preliminary Blood No Growth after 96 hours Assessment and Plan Time with Patient: Less than 30
[2022-09-29 16:34] LABS: Glucose,Whole Blood 137 mg/dL (70-110)
[2022-09-29 20:40] LABS: Glucose,Whole Blood 160 mg/dL (70-110)
[2022-09-29] MEDS: HYDROcodone/APAP 5-325MG 1 EACH TAB PO PRN (21:38)
[2022-09-29] MEDS: MELATONIN 5 MG TABLET PO SCH (21:39)
[2022-09-29] MEDS: INSULIN DETEMIR (LEVEMIR) 100 UNIT/ML SYR SQ SCH (21:40)
[2022-09-30] MEDS: VANCOMYCIN 1,500 MG in SODIUM CHLORIDE 0.9% 500 ML 500 ML IVPB SCH ×2 (01:20→14:37)
[2022-09-30 05:17] LABS: African American GFR (CKD) >90 (>60 ml/min/1.73 sqM); Non-African American GFR(CKD) >90 (>60 ml/min/1.73 sqM)
[2022-09-30] MEDS: GABAPENTIN 300 MG CAP PO SCH ×3 (05:53→20:51)
[2022-09-30 06:02] LABS: Glucose,Whole Blood 164 mg/dL (70-110)
[2022-09-30] MEDS: amLODIPine 5 MG TAB PO SCH (08:49)
[2022-09-30] MEDS: TAMSULOSIN 0.4 MG CAP.ER.24H PO SCH (08:49)
[2022-09-30] MEDS: MAGNESIUM OXIDE 400 MG TAB PO SCH (08:49)
[2022-09-30] MEDS: FAMOTIDINE 20 MG TAB PO SCH ×2 (08:49→20:51)
[2022-09-30] MEDS: INSULIN ASPART (NovoLOG) 100 UNIT/ML VIAL SQ SCH ×3 (08:49→17:01)
[2022-09-30] MEDS: HEPARIN SODIUM,PORCINE/PF 5,000 UNIT/0.5 ML SYRINGE SQ SCH ×2 (08:50→20:51)
[2022-09-30 08:58] LABS: Glucose,Whole Blood 116 mg/dL (70-110)
--- NOTE | 2022-09-30 09:01 | P.PN ---
Subjective Progress Note Date: 09/28/22 Principal diagnosis: Fever and infected right heel pressure ulcer Patient is a 67-year old male with multiple comorbidities and [facility] resident brought into the hospital concerning for fever tachycardia patient noticed to have a right heel infected pressure ulcer and concern for possible cellulitis. Patient has been evaluated by vascular surgery and did have patience ridement of the right heel wound and cultures on 09/26/2022 On today's evaluation that is 09/28/2022 the patient remains to be afebrile patient is breathing comfortably on room air, patient denies chest pain or shortness of breath or cough, the patient denies abdominal pain and no diarrhea, the patient pain to the right heel is currently controlled Objective - Vital Signs Vital signs: Vital Signs Temp 98.5 F 09/28/22 07:48 Pulse 86 09/28/22 07:48 Resp 17 09/28/22 07:48 BP 136/61 09/28/22 07:48 Pulse Ox 94 L 09/28/22 07:48 FiO2 Intake & Output 09/27/22 09/28/22 09/28/22 18:59 06:59 18:59 Intake Total 120 Output Total 8775 1900 Balance -8775 -1900 120 Intake: Oral 120 Output: Urine 8775 1900 Uretheral (Mayer) 3400 800 Other: Voiding Method Indwelling Catheter Indwelling Catheter # Bowel Movements 1 - Exam GENERAL DESCRIPTION: An elderly male lying in bed in no distress RESPIRATORY SYSTEM: Unlabored breathing , decreased breath sounds at bases HEART: S1 S2 regular rate and rhythm , ABDOMEN: Soft , no tenderness EXTREMITIES: Right heel wound with a bone palpable noticed to have slight ble eding minimal slough tissue, left heel wound with some slough tissue no surrounding redness Patient did have a stage III sacral pressure ulcer with some slough tissue no significant surrounding redness - Labs CBC & Chem 7: 09/28/22 07:21 09/30/22 04:17 Labs: Abnormal Lab Results - Last 24 Hours (Table) 09/27/22 09/27/22 09/28/22 Range/Units 16:44 20:07 07:21 RBC 3.47 L (4.30-5.90) m/uL Hgb 9.7 L (13.0-17.5) gm/dL Hct 30.3 L (39.0-53.0) % Sodium (137-145) mmol/L Creatinine (0.66-1.25) mg/dL Glucose (74-99) mg/dL POC Glucose (mg/dL) 125 H 209 H (70-110) mg/dL Calcium (8.4-10.2) mg/dL 09/28/22 Range/Units 07:21 RBC (4.30-5.90) m/uL Hgb (13.0-17.5) gm/dL Hct (39.0-53.0) % Sodium 135 L (137-145) mmol/L Creatinine 0.55 L (0.66-1.25) mg/dL Glucose 104 H (74-99) mg/dL POC Glucose (mg/dL) (70-110) mg/dL Calcium 8.1 L (8.4-10.2) mg/dL Microbiology - Last 24 Hours (Table) 09/24/22 13:05 Blood Culture - Preliminary Blood No Growth after 72 hours 09/24/22 13:03 Blood Culture - Preliminary Blood No Growth after 72 hours Assessment and Plan (1) Pressure ulcer of sacral region, stage 3 Current Visit: Yes Status: Acute Code(s): L89.153 - PRESSURE ULCER OF SACRAL REGION, STAGE 3 SNOMED Code(s): 53262933961332059 (2) Stage IV pressure ulcer of right heel Current Visit: Yes Status: Acute Code(s): L89.614 - PRESSURE ULCER OF RIGHT HEEL, STAGE 4 SNOMED Code(s): 66983774108966 Plan: 1patient present to hospital with sepsis in this patient who did have a fever tachycardia elevated white count source likely bilateral heel infected pressure ulcer with secondary cellulitis being a [facility] resident will need to cover for the resistant gram-positive as well as gram-negative pathogen. 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
--- NOTE | 2022-09-30 09:03 | P.PN ---
Subjective Progress Note Date: 09/29/22 Principal diagnosis: Fever and infected right heel pressure ulcer Patient is a 67-year old male with multiple comorbidities and [facility] brought into the hospital concerning for fever tachycardia patient noticed to have a right heel infected pressure ulcer and concern for possible cellulitis. Patient has been evaluated by vascular surgery and did have patience ridement of the right heel wound and cultures on 09/26/2022 On today's evaluation that is 09/29/2022 the patient continues to be afebrile patient is breathing comfortably on room air, patient denies chest pain shortness of breath or cough, the patient denies abdominal pain and no diarrhea, the patient denies any worsening pain to the right heel Objective - Vital Signs Vital signs: Vital Signs Temp 98.2 F 09/29/22 20:17 Pulse 95 09/29/22 20:17 Resp 17 09/29/22 20:17 BP 111/69 09/29/22 20:17 Pulse Ox 95 09/29/22 20:17 FiO2 Intake & Output 09/29/22 09/29/22 09/30/22 06:59 18:59 06:59 Output Total 1800 2400 Balance -1800 -2400 Output: Urine 1800 2400 Other: Voiding Method Indwelling Catheter - Exam GENERAL DESCRIPTION: An elderly male lying in bed in no distress RESPIRATORY SYSTEM: Unlabored breathing , decreased breath sounds at bases HEART: S1 S2 regular rate and rhythm , ABDOMEN: Soft , no tenderness EXTREMITIES: Bilateral heel wounds are currently dressed no drainage on the dressing - Labs CBC & Chem 7: 09/28/22 07:21 09/30/22 04:17 Labs: Abnormal Lab Results - Last 24 Hours (Table) 09/29/22 09/29/22 09/29/22 Range/Units 04:34 11:09 16:33 Creatinine 0.50 L (0.66-1.25) mg/dL POC Glucose (mg/dL) 126 H 137 H (70-110) mg/dL 09/29/22 Range/Units 20:38 Creatinine (0.66-1.25) mg/dL POC Glucose (mg/dL) 160 H (70-110) mg/dL Microbiology - Last 24 Hours (Table) 09/24/22 13:03 Blood Culture - Preliminary Blood No Growth after 120 hours 09/24/22 13:05 Blood Culture - Preliminary Blood No Growth after 120 hours 09/26/22 07:40 Anaerobic Culture - Preliminary Foot - Right Jesenia albicans 09/26/22 07:40 Gram Stain - Final Foot - Right Wound Culture - Final Methicillin resist S. aureus Assessment and Plan (1) Pressure ulcer of sacral region, stage 3 Current Visit: Yes Status: Acute Code(s): L89.153 - PRESSURE ULCER OF SACRAL REGION, STAGE 3 SNOMED Code(s): 43170299994050387 (2) Stage IV pressure ulcer of right heel Current Visit: Yes Status: Acute Code(s): L89.614 - PRESSURE ULCER OF RIGHT HEEL, STAGE 4 SNOMED Code(s): 58481774215772 Plan: 1patient present to hospital with sepsis in this patient who did have a fever tachycardia elevated white count source likely bilateral heel infected pressure ulcer with secondary cellulitis being a [facility] will need to cover for the resistant gram-positive as well as gram-negative pathogen. 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
[2022-09-30 11:18] LABS: Glucose,Whole Blood 141 mg/dL (70-110)
--- NOTE | 2022-09-30 11:36 | CDI ---
Documentation Clarification Form Date: 09/30/2022 11:21:55 AM From: Demetra Michaels CCS, CCDS Admit Date: 09/24/2022 02:44:00 PM Patient Name: Byron Hobbs Visit Number: [id number] Discharge Date: ATTENTION: The Clinical Documentation Specialists (CDI) and [facility] Coding Staff appreciate your assistance in clarifying documentation. Please respond to the clarification below the line at the bottom and electronically sign. The CDI & [facility] Coding staff will review the response and follow-up if needed. Please note: Queries are made part of the Legal Health Record. If you have any questions, please contact the author of this message via ITS. Dr. Evette Casarez: Conflicting documentation has been found in the medical record. As attending physician, please provide clarification. Per the Attending Physician Progress Notes beginning on 09/28: Sacral ulcer is unstageable. Per the Infectious Disease Consult and subsequent Progress Notes: Stage III Sacral Pressure Ulcer Per the 09/24 Nursing Assessment: Coccyx Pressure Injury, Present on Admission, Unstageable, moderate drainage, foul odor. History/Risk Factors per the 09/24 H/P: Chronic bilateral low extremity nonhealing diabetic ulcers, DM II, Hypertension, Bilateral lower extremity venous insufficiency. Clinical Indicators: [facility] with high fever (104), has bilateral lower extremity nonhealing ulcers. Admit with Diabetic ulcers on both feet. Uncontrolled DM, Bilateral lower leg cellulitis. Treatment 09/24: Dressing changes (foam w/border), Oral nutrition supplement, Blood cultures, IV Zosyn 100 mls @ 200 mls/hr x1, IV fl bolus Na Chl 1,000 mls @ 999 mls/hr q1H, IV Na Chl 1,000 mls @ 50 mls/hr q20H, IV Vancomycin 500 mls @ 167 mls/hr x1. Please clarify which diagnosis is most appropriate: [ ] Sacral/Coccyx Pressure Ulcer Stage III [ ] Sacral/Coccyx Pressure Ulcer Unstageable [ ] Other (please specify): [ ] Unable to determine (Template Last Revised: January 2021) MTDD
[2022-09-30] MEDS ORDERED: VANCOMYCIN TROUGH DUE 1 EACH MISC MISCELLANE ONE (12:00)
--- NOTE | 2022-09-30 13:04 | P.DS ---
Providers Date of admission: 09/24/22 14:44 Attending physician: Evette Casarez Consults: 09/24/22 14:44 Consult Physician Routine Consulting Provider: Altagracia Richardson Consult Reason/Comments: Sepsis Do you want consulting provider notified?: Yes 09/25/22 18:59 Consult Physician Routine Consulting Provider: Mathew Nelson Consult Reason/Comments: DM foot ulcers Do you want consulting provider notified?: Yes Primary care physician: Herbert Lowe [facility] Hospital Course: Final Diagnosis -Sepsis secondary to multiple bilateral lower extremity ulcerations which are diabetic foot ulcers bilateral heel and also top of left foot and a sacral decubitus ulcer which is stage 3, right heel wound culture showing MRSA patient underwent surgical debridement to right heel and deep tissues cultures showing MRSA as well as dane albicans. -type 2 diabetes mellitus -Hypotension: which has improved with IV fluids -Bilateral lower extremity venous insufficiency -mild hyponatremia secondary to hyperglycemia improved with IV fluids -Tachycardia secondary to intravascular depletion patient will be continued on IV fluids, tachycardia has improved -Full Code Discharge Disposition Patient is discharged in stable condition with overall guarded prognosis to rehab today. He will continue on IV antibiotics. PICC line in place to left upper extremity. Local wound care to bilateral heel pressure ulcer and also sacrum/coccyx decubitus ulcer with medihoney gel cover with moist gauze and change daily. Wrap right heel with MANNY wrap. Patient to see Dr. Richardson in the wound care center on follow up Recommend for patient to repeat labs in 2 to 3 days Patient will need to follow up with his primary care provider in 1 to 2 days Follow up with ophthalmology for routine eye screening Hospital Course This is a 67-year-old male patient of Dr Herbert Lowe who was transferred from detention because of high-grade fevers of 104. Patient has bilateral lower extremity nonhealing ulcers on right and left heel. Patient was evaluated by infectious disease and also vascular surgery for these wounds. Wound culture taken on admission showing positive for methicillin resistant staphylococcus aureus. Patient underwent surgical debridement at the bedside with Dr. Nelson to the right heel. Deep tissue cultures taken showing also MRSA. Patient is also on Cipro and Unasyn. Patient had Pseudomonas and Proteus mirabilis from the previous wound cultures. Patient blood sugars are bit high patient on admission has diabetic foot ulcers, patient does have leukocytosis no other source of infection was evident patient does have cough with minimal sputum production. White count 22.4 on admission, he also had some lactic acidosis. For this reason patient met sepsis criteria and was hydrated and continued with IV antibiotics which will be recommend on discharge. He does have elevated inflammatory markers ESR elevated at 86, CRP 19.30. Lactic acid has normalized to 1.5. White count has also normalized. Hemoglobin A1c found to be 7.1. Patient had PICC line placed this admission for IV antibiotics on discharge. He will be discharged back to [facility] where he is currently undergoing rehab. 09/30/2022 Patient is evaluated today resting in bed. He is non ambulatory due to not having his pressure reduction shoes available. He has been wearing pressure reduction boots and instructed to keep heels elevated off the bed. Additionally recommending frequent turning and repositioning secondary to sacral decubitus ulcer. No acute events overnight and pain is controlled with oral medication. He is anticipating return to rehab today. Lungs are clear, S1 S2 auscultated. His abdomen is soft and tender, obese. He is having BMs and urinating without difficulty. No focal neurological deficits noted. Patient is alert x 3 and pleasant. He has right heel wound with kerlex in tact, he has left heel wound with kerlex and manny bandage in tact. There is small ulceration top of left foot, and also stage 3 pressure injury noted to coccyx, sacral. Most recent labs showing white count 9.8, hgb 9.7, sodium 135, BUN 13, creatinine 0.55. Patient did have elevated blood pressures however with the addition of amlodipine blood pressure dropped into the 100s systolic. wound recommend monitoring off antibiotics at this time. Temperature 98.3, heart rate 90, blood pressure 120/77, 94% room air. Please see medication reconciliation for a list of current medication. Thank you for allowing us to participate in the care of this patient. The impression and plan of care has been dictated by Leatha Clancy, Nurse Practitioner as directed. Dr. Leida MD I have performed a history and physical examination and medical decision making of this patient, discussed the same with the dictator, and agree with the dictators assessment and plan as written, documented as a scribe. Based on total visit time, I have performed more than 50% of this visit. Patient Condition at Discharge: Stable Plan - Discharge Summary New Discharge Prescriptions: New Tamsulosin [Flomax] 0.4 mg PO PC-BRKFST cap Magnesium Oxide [Mag-Ox] 400 mg PO DAILY #0 tab Melatonin 5 mg PO HS tab Famotidine [Pepcid] 20 mg PO BID tab Continue Acetaminophen Tab [Tylenol] 650 mg PO Q6HR PRN tab PRN Reason: Mild Pain Or Fever > 100.5 Magnesium Hydroxide [Milk of Magnesia Concentrate] 7,200 mg PO Q48H PRN PRN Reason: Constipation Na Phos,M-B/Na Phos,Di-Ba [Fleet Adult] 133 ml RECTAL DAILY PRN PRN Reason: Constipation diphenhydrAMINE [Benadryl] 25 mg PO Q6H PRN PRN Reason: Rash Delgado Packet 1 packet PO BID@0800,1700 Gabapentin 300 mg PO TID@0600,1400,2200 #6 cap INSULIN ASPART (NovoLOG) [NovoLOG (formulary)] 6 unit SQ AC-TID each Lidocaine 5% Oint [Xylocaine 5% Oint] 1 applic TOPICAL DAILY PRN PRN Reason: wound beds prior to wound care bisacodyL [Dulcolax] 10 mg RECTAL DAILY PRN PRN Reason: Constipation Magic Butt Paste 1 applic TOPICAL TID Insulin Detemir (Levemir) [Levemir] 10 unit SQ HS@2130 HYDROcodone/APAP 5-325MG [Otis 5-325] 1 tab PO Q6H PRN #4 tab PRN Reason: Pain Discontinued Ciprofloxacin HCl [Cipro] 500 mg PO DAILY@0800 Discharge Medication List Acetaminophen Tab [Tylenol] 650 mg PO Q6HR PRN tab 07/15/22 [Rx] INSULIN ASPART (NovoLOG) [NovoLOG (formulary)] 6 unit SQ AC-TID each 07/15/22 [Rx] Insulin Detemir (Levemir) [Levemir] 10 unit SQ HS@2130 09/24/22 [History] Delgado Packet 1 packet PO BID@0800,1700 09/24/22 [History] Lidocaine 5% Oint [Xylocaine 5% Oint] 1 applic TOPICAL DAILY PRN 09/24/22 [History] Magic Butt Paste 1 applic TOPICAL TID 09/24/22 [History] Magnesium Hydroxide [Milk of Magnesia Concentrate] 7,200 mg PO Q48H PRN 09/24/22 [History] Na Phos,M-B/Na Phos,Di-Ba [Fleet Adult] 133 ml RECTAL DAILY PRN 09/24/22 [History] bisacodyL [Dulcolax] 10 mg RECTAL DAILY PRN 09/24/22 [History] diphenhydrAMINE [Benadryl] 25 mg PO Q6H PRN 09/24/22 [History] Famotidine [Pepcid] 20 mg PO BID tab 09/30/22 [Rx] Gabapentin 300 mg PO TID@0600,1400,2200 #6 cap 09/30/22 [Rx] HYDROcodone/APAP 5-325MG [Otis 5-325] 1 tab PO Q6H PRN #4 tab 09/30/22 [Rx] Magnesium Oxide [Mag-Ox] 400 mg PO DAILY #0 tab 09/30/22 [Rx] Melatonin 5 mg PO HS tab 09/30/22 [Rx] Tamsulosin [Flomax] 0.4 mg PO PC-BRKFST cap 09/30/22 [Rx] Follow up Appointment(s)/Referral(s): Herbert Lowe MD [Primary Care Provider] - 1-2 days Theresa Campbell, [NON-STAFF] - As Needed Altagracia Richardson MD [STAFF PHYSICIAN] - 10/08/22 3:18 pm Ambulatory/Diagnostic Orders: Basic Metabolic Panel [LAB.AMB] Time Frame: 3 Days, Location: None Selected Complete Blood Count w/diff [LAB.AMB] Time Frame: 3 Days, Location: None Selected Activity/Diet/Wound Care/Special Instructions: Local wound care to bilateral heel pressure ulcer and also sacrum/coccyx decubitus ulcer with medihoney gel cover with moist gauze and change daily. Wrap right heel with MANNY wrap. Follow up with Dr. Richardson in the wound care center please pylv [phone] Recommend for patient to see ophthalmology for routine eye screening Discharge Disposition: TRANSFER TO SNF/ECF
[2022-09-30 16:51] LABS: Glucose,Whole Blood 128 mg/dL (70-110)
[2022-09-30 20:26] LABS: Glucose,Whole Blood 192 mg/dL (70-110)
[2022-09-30] MEDS: MELATONIN 5 MG TABLET PO SCH (20:51)
[2022-09-30] MEDS: INSULIN DETEMIR (LEVEMIR) 100 UNIT/ML SYR SQ SCH (20:52)
[2022-09-30] MEDS: HYDROcodone/APAP 5-325MG 1 EACH TAB PO PRN (20:53)
[2022-10-01] MEDS: VANCOMYCIN 1,500 MG in SODIUM CHLORIDE 0.9% 500 ML 500 ML IVPB SCH ×2 (00:51→13:29)
[2022-10-01 06:22] LABS: Glucose,Whole Blood 127 mg/dL (70-110)
[2022-10-01] MEDS: GABAPENTIN 300 MG CAP PO SCH ×2 (06:46→14:20)
[2022-10-01 07:41] VITALS: BP 152/69; RESP 16; TEMP 97.8
--- NOTE | 2022-10-01 08:34 | P.PN ---
Subjective Progress Note Date: 09/30/22 Principal diagnosis: Fever and infected right heel pressure ulcer Patient is a 67-year old male with multiple comorbidities and senior living resident brought into the hospital concerning for fever tachycardia patient noticed to have a right heel infected pressure ulcer and concern for possible cellulitis. Patient has been evaluated by vascular surgery and did have patience ridement of the right heel wound and cultures on 09/26/2022 On today's evaluation that is 09/30/2022 the patient remains to be afebrile, the patient apparently was complaining of some pain to the right heel at the time of dressing changes last night however seems to be doing okay this morning patient denies having any chest pain no shortness with or cough no abdominal pain no diarrhea Objective - Vital Signs Vital signs: Vital Signs Temp 98.3 F 09/30/22 07:59 Pulse 80 09/30/22 07:59 Resp 17 09/30/22 07:59 BP 120/77 09/30/22 07:59 Pulse Ox 94 L 09/30/22 07:59 FiO2 Intake & Output 09/29/22 09/30/22 09/30/22 18:59 06:59 18:59 Intake Total 1000 Output Total 2400 1800 Balance -2400 -800 Intake: Intake, IV Titration 500 Amount Vancomycin 1,500 mg In 500 Sodium Chloride 0.9% 500 ml 500 ml @ 167 mls/hr IVPB Q12H [facility] Rx#: [id number] Oral 500 Output: Urine 2400 1800 Other: Voiding Method Indwelling Catheter - Exam GENERAL DESCRIPTION: An elderly male lying in bed in no distress RESPIRATORY SYSTEM: Unlabored breathing , decreased breath sounds at bases HEART: S1 S2 regular rate and rhythm , ABDOMEN: Soft , no tenderness EXTREMITIES: Bilateral heel wounds are currently dressed no drainage on the dressing - Labs CBC & Chem 7: 09/28/22 07:21 09/30/22 04:17 Labs: Abnormal Lab Results - Last 24 Hours (Table) 09/28/22 09/29/22 09/29/22 Range/Units 11:20 16:33 20:38 Creatinine (0.66-1.25) mg/dL POC Glucose (mg/dL) 116 H 137 H 160 H (70-110) mg/dL 09/30/22 09/30/22 09/30/22 Range/Units 04:17 06:00 11:16 Creatinine 0.58 L (0.66-1.25) mg/dL POC Glucose (mg/dL) 164 H 141 H (70-110) mg/dL Microbiology - Last 24 Hours (Table) 09/26/22 07:40 Anaerobic Culture - Final Foot - Right Jesenia albicans 09/24/22 13:03 Blood Culture - Preliminary Blood No Growth after 120 hours 09/24/22 13:05 Blood Culture - Preliminary Blood No Growth after 120 hours Assessment and Plan (1) Pressure ulcer of sacral region, stage 3 Current Visit: Yes Status: Acute Code(s): L89.153 - PRESSURE ULCER OF SACRAL REGION, STAGE 3 SNOMED Code(s): 88260487649552468 (2) Stage IV pressure ulcer of right heel Current Visit: Yes Status: Acute Code(s): L89.614 - PRESSURE ULCER OF RIGHT HEEL, STAGE 4 SNOMED Code(s): 44455746857002 Plan: 1patient present to hospital with sepsis in this patient who did have a fever tachycardia elevated white count source likely bilateral heel infected pressure ulcer with secondary cellulitis being a senior living resident will need to cover for the resistant gram-positive as well as gram-negative pathogen. 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 3patient also have a stage III sacral pressure ulcer but no cellulitis [facility] and keep the area off the pressure 4patient has got PICC line for outpatient IV antibiotic therapy 5Patient has shown some clinical improvement plan is to continue the vancomycin pharmacy to dose target trough of 15 with weekly monitoring of CRP and a sed rate and a close outpatient follow-up with the wound care center 1 to 2-week post discharge from the hospital plan was discussed with the FLAME CUTTING MACHINE OPERATOR HELPER for admitting team working on discharge Time with Patient: Less than 30
[2022-10-01] MEDS: INSULIN ASPART (NovoLOG) 100 UNIT/ML VIAL SQ SCH ×2 (10:01→11:44)
[2022-10-01] MEDS: HYDROcodone/APAP 5-325MG 1 EACH TAB PO PRN (10:03)
[2022-10-01] MEDS: FAMOTIDINE 20 MG TAB PO SCH (10:03)
[2022-10-01] MEDS: MAGNESIUM OXIDE 400 MG TAB PO SCH (10:04)
[2022-10-01] MEDS: amLODIPine 5 MG TAB PO SCH (10:05)
[2022-10-01] MEDS: HEPARIN SODIUM,PORCINE/PF 5,000 UNIT/0.5 ML SYRINGE SQ SCH (10:05)
[2022-10-01] MEDS: TAMSULOSIN 0.4 MG CAP.ER.24H PO SCH (10:05)
[2022-10-01 11:36] LABS: Glucose,Whole Blood 119 mg/dL (70-110)
[2022-10-01 11:40] VITALS: PULSE 70
--- NOTE | 2022-10-01 11:59 | P.CONS ---
History of Present Illness - Reason for Consult Consult date: 10/01/22 wound care - History of Present Illness This is a 67-year-old patient being seen by the wound care center for nonhealing ulcerations to the bilateral heels and bilateral buttocks. Patient is a resident of [facility] and follows with Dr. Gracia for wound care. He is been treating the ulcerations with honey to the site. Patient has stage II pressure ulcers to the bilateral buttocks and coccyx with excoriation noted. We will apply honey gel to the site. Patient has bilateral ulcerations to the heels that are stage II ulcerations with granulation seen within the wound beds and minimal slough. Review Of Systems: Constitutional: No fever, no chills, no night sweats. No weight change. No weakness, fatigue or lethargy. No daytime sleepiness. Integumentary:reports wounds, no lesions. No rash or pruritus. No unusual bruising. No change in hair or nails. Physical exam: General Appearance: Alert, cooperative, no distress, appears stated age. Skin: See HPI all other Skin color, texture, tugor normal, no rashes or lesions. Neurologic: Alert oriented x3 Assessment: 1. Stage II pressure ulcer bilateral buttocks 2. Stage II pressure ulcer coccyx 3. Stage II pressure ulcer right heel 4. Stage II pressure ulcer left heel Plan: 1.apply honey alginate to bilateral heels, saline moist guaze, and rolled gauze. Secure with tape. Coccyx wounds: Apply honey gel, dry gauze and ABD, secure with tape. Thank you for the consultation any questions please contact the wound care center DNP note has been reviewed and discussed with Dr. Bower and the impression and plan of care has been directed as dictated. Past Medical History Past Medical History: Hypertension Additional Past Medical History / Comment(s): borderline cholesterol History of Any Multi-Drug Resistant Organisms: MRSA Year Discovered:: 09/26/22 MDRO Source:: Right Foot Past Surgical History: Orthopedic Surgery Additional Past Surgical History / Comment(s): hip replacement left, cataracts, surgery as a child right leg Past Psychological History: No Psychological Hx Reported Smoking Status: Never smoker Past Alcohol Use History: None Reported Past Drug Use History: None Reported - Past Family History family Additional Family Medical History / Comment(s): No family hx of diabetes Medications and Allergies Home Medications Medication Instructions Recorded Confirmed Type Acetaminophen Tab [Tylenol] 650 mg PO Q6HR PRN tab 07/15/22 09/24/22 Rx INSULIN ASPART (NovoLOG) [NovoLOG 6 unit SQ AC-TID each 07/15/22 09/24/22 Rx (formulary)] Insulin Detemir (Levemir) [Levemir] 10 unit SQ HS@2130 09/24/22 09/24/22 History Delgado Packet 1 packet PO BID@0800,1700 09/24/22 09/24/22 History Lidocaine 5% Oint [Xylocaine 5% 1 applic TOPICAL DAILY PRN 09/24/22 09/24/22 History Oint] Magic Butt Paste 1 applic TOPICAL TID 09/24/22 09/24/22 History Magnesium Hydroxide [Milk of 7,200 mg PO Q48H PRN 09/24/22 09/24/22 History Magnesia Concentrate] Na Phos,M-B/Na Phos,Di-Ba [Fleet 133 ml RECTAL DAILY PRN 09/24/22 09/24/22 History Adult] bisacodyL [Dulcolax] 10 mg RECTAL DAILY PRN 09/24/22 09/24/22 History diphenhydrAMINE [Benadryl] 25 mg PO Q6H PRN 09/24/22 09/24/22 History Famotidine [Pepcid] 20 mg PO BID tab 09/30/22 Rx Gabapentin 300 mg PO TID@0600,1400,2200 #6 cap 09/30/22 Rx HYDROcodone/APAP 5-325MG [[place] 1 tab PO Q6H PRN #4 tab 09/30/22 Rx 5-325] Magnesium Oxide [Mag-Ox] 400 mg PO DAILY #0 tab 09/30/22 Rx Melatonin 5 mg PO HS tab 09/30/22 Rx Tamsulosin [Flomax] 0.4 mg PO PC-BRKFST cap 09/30/22 Rx Allergies Allergy/AdvReac Type Severity Reaction Status Date / Time No Known Allergies Allergy Verified 09/24/22 14:15 Physical Exam Vitals: Vital Signs Temp Pulse Resp BP Pulse Ox 10/01/22 11:35 70 16 10/01/22 07:40 97.8 F 90 16 152/69 97 10/01/22 00:54 98.3 F 93 18 116/73 92 L 09/30/22 20:00 98.9 F 93 17 107/63 96 09/30/22 14:00 97.5 F L 64 16 114/52 94 L Intake and Output 09/30/22 10/01/22 10/01/22 22:59 06:59 14:59 Intake Total 1000 Output Total 2200 Balance 1000 -2200 Intake: Intake, IV Titration 500 Amount Vancomycin 1,500 mg In 500 Sodium Chloride 0.9% 500 ml 500 ml @ 167 mls/hr IVPB Q12H [facility] Rx#: [id number] Oral 500 Output: Urine 2200 Other: Voiding Method Indwelling Catheter Indwelling Catheter Results CBC & Chem 7: 09/28/22 07:21 09/30/22 04:17 Labs: Abnormal Lab Results - Last 24 Hours (Table) 09/30/22 09/30/22 10/01/22 Range/Units 16:49 20:24 06:09 POC Glucose (mg/dL) 128 H 192 H 127 H (70-110) mg/dL 10/01/22 Range/Units 11:35 POC Glucose (mg/dL) 119 H (70-110) mg/dL Microbiology - Last 24 Hours (Table) 09/24/22 13:03 Blood Culture - Final Blood No Growth after 144 hours 09/24/22 13:05 Blood Culture - Final Blood No Growth after 144 hours 09/26/22 07:40 Anaerobic Culture - Final Foot - Right Jesenia albicans Assessment and Plan (1) Stage II pressure ulcer of left buttock Current Visit: Yes Status: Acute Code(s): L89.322 - PRESSURE ULCER OF LEFT BUTTOCK, STAGE 2 SNOMED Code(s): 68251072852081531 (2) Stage II pressure ulcer of left heel Current Visit: Yes Status: Acute Code(s): L89.622 - PRESSURE ULCER OF LEFT HEEL, STAGE 2 SNOMED Code(s): 74779681137387 (3) Stage II pressure ulcer of right buttock Current Visit: Yes Status: Acute Code(s): L89.312 - PRESSURE ULCER OF RIGHT BUTTOCK, STAGE 2 SNOMED Code(s): 23633206407927637 (4) Stage II pressure ulcer of right heel Current Visit: Yes Status: Acute Code(s): L89.612 - PRESSURE ULCER OF RIGHT HEEL, STAGE 2 SNOMED Code(s): 92983862491861 (5) Pressure injury of coccygeal region, stage 2 Current Visit: Yes Status: Acute Code(s): L89.152 - PRESSURE ULCER OF SACRAL REGION, STAGE 2 SNOMED Code(s): 614226377
--- NOTE | 2022-10-01 15:34 | P.DS ---
Providers Date of admission: 09/24/22 14:44 Attending physician: Evette Casarez Consults: 09/24/22 14:44 Consult Physician Routine Consulting Provider: Altagracia Richardson Consult Reason/Comments: Sepsis Do you want consulting provider notified?: Yes 09/25/22 18:59 Consult Physician Routine Consulting Provider: Mathew Nelson Consult Reason/Comments: DM foot ulcers Do you want consulting provider notified?: Yes Primary care physician: Herbert Lowe [facility] Course: Final Diagnosis -Sepsis secondary to multiple bilateral lower extremity ulcerations which are diabetic foot ulcers bilateral heel and also top of left foot and a sacral decubitus ulcer which is stage 3, right heel wound culture showing MRSA patient underwent surgical debridement to right heel and deep tissues cultures showing MRSA as well as dane albicans. -type 2 diabetes mellitus -Hypotension: which has improved with IV fluids -Bilateral lower extremity venous insufficiency -mild hyponatremia secondary to hyperglycemia improved with IV fluids -Tachycardia secondary to intravascular depletion patient will be continued on IV fluids, tachycardia has improved -Full Code Discharge Disposition Patient is discharged in stable condition with overall guarded prognosis to rehab today. He will continue on IV antibiotics vancomycin pharmacy to dose for [address] weeks[address] line in place to *right upper extremity. Local wound care to bilateral heel pressure ulcer and also sacrum/coccyx decubitus ulcer with medihoney gel cover with moist gauze and change daily. Wrap right heel with MANNY wrap. Patient to see Dr. Richardson in the wound care center on follow up Recommend for patient to repeat labs in 2 to 3 days Patient will need to follow up with his primary care provider in 1 to 2 days Follow up with ophthalmology for routine eye screening Hospital Course This is a 67-year-old male patient of Dr Herbert Lowe who was transferred from halfway because of high-grade fevers of 104. Patient has bilateral lower e xtremity nonhealing ulcers on right and left heel. Patient was evaluated by infectious disease and also vascular surgery for these wounds. Wound culture taken on admission showing positive for methicillin resistant staphylococcus aureus. Patient underwent surgical debridement at the bedside with Dr. Nelson to the right heel. Deep tissue cultures taken showing also MRSA. Patient is also on Cipro and Unasyn. Patient had Pseudomonas and Proteus mirabilis from the previous wound cultures. Patient blood sugars are bit high patient on admission has diabetic foot ulcers, patient does have leukocytosis no other source of infection was evident patient does have cough with minimal sputum production. White count 22.4 on admission, he also had some lactic acidosis. For this reason patient met sepsis criteria and was hydrated and continued with IV antibiotics which will be recommend on discharge. He does have elevated inflammatory markers ESR elevated at 86, CRP 19.30. Lactic acid has normalized to 1.5. White count has also normalized. Hemoglobin A1c found to be 7.1. Patient had PICC line placed this admission for IV antibiotics on discharge. He will be discharged back to [facility] where he is currently undergoing rehab. 09/30/2022 Patient is evaluated today resting in bed. He is non ambulatory due to not having his pressure reduction shoes available. He has been wearing pressure reduction boots and instructed to keep heels elevated off the bed. Additionally recommending frequent turning and repositioning secondary to sacral decubitus ulcer. No acute events overnight and pain is controlled with oral medication. He is anticipating return to rehab today. Lungs are clear, S1 S2 auscultated. His abdomen is soft and tender, obese. He is having BMs and urinating without difficulty. No focal neurological deficits noted. Patient is alert x 3 and pleasant. He has right heel wound with kerlex in tact, he has left heel wound with kerlex and manny bandage in tact. There is small ulceration top of left foot, and also stage 3 pressure injury noted to coccyx, sacral. Most recent labs showing white count 9.8, hgb 9.7, sodium 135, BUN 13, creatinine 0.55. Patient did have elevated blood pressures however with the addition of amlodipine blood pressure dropped into the 100s systolic. wound recommend monitoring off antibiotics at this time. Temperature 98.3, heart rate 90, blood pressure 120/77, 94% room air. 10/01/2022 Patient is pending transfer back to rehab today. Local wound care to continue and patient to follow with Dr. Richardson in the wound care center. Patient will continue on IV vancomycin for 6 weeks, PICC line in placed to right upper extremity. No acute events overnight. He denies chest pain, denies shortness of breath. No nausea, vomiting or diarrhea, he is tolerating diet. He is alert x 3. Lungs are clear, S1 S2 auscultated abdomen is soft and nontender. Dressing in tact to bilateral heel wound. Most recent vitals showing temp of 97.8, heart rate 70, blood pressure 152/69, 97% room air. Blood glucose improved. Patient to be discharge to subacute rehab today. Please see medication reconciliation for a list of current medication. Thank you for allowing us to participate in the care of this patient. The impression and plan of care has been dictated by Leatha Clancy, Nurse Practitioner as directed. Dr. Leida MD I have performed a history and physical examination and medical decision making of this patient, discussed the same with the dictator, and agree with the dictators assessment and plan as written, documented as a scribe. Based on total visit time, I have performed more than 50% of this visit. Patient Condition at Discharge: Stable Plan - Discharge Summary New Discharge Prescriptions: New Tamsulosin [Flomax] 0.4 mg PO PC-BRKFST cap Magnesium Oxide [Mag-Ox] 400 mg PO DAILY #0 tab Melatonin 5 mg PO HS tab Famotidine [Pepcid] 20 mg PO BID tab Continue Acetaminophen Tab [Tylenol] 650 mg PO Q6HR PRN tab PRN Reason: Mild Pain Or Fever > 100.5 Magnesium Hydroxide [Milk of Magnesia Concentrate] 7,200 mg PO Q48H PRN PRN Reason: Constipation Na Phos,M-B/Na Phos,Di-Ba [Fleet Adult] 133 ml RECTAL DAILY PRN PRN Reason: Constipation diphenhydrAMINE [Benadryl] 25 mg PO Q6H PRN PRN Reason: Rash Delgado Packet 1 packet PO BID@0800,1700 Gabapentin 300 mg PO TID@0600,1400,2200 #6 cap INSULIN ASPART (NovoLOG) [NovoLOG (formulary)] 6 unit SQ AC-TID each Lidocaine 5% Oint [Xylocaine 5% Oint] 1 applic TOPICAL DAILY PRN PRN Reason: wound beds prior to wound care bisacodyL [Dulcolax] 10 mg RECTAL DAILY PRN PRN Reason: Constipation Magic Butt Paste 1 applic TOPICAL TID Insulin Detemir (Levemir) [Levemir] 10 unit SQ HS@2130 HYDROcodone/APAP 5-325MG [[place] 5-325] 1 tab PO Q6H PRN #4 tab PRN Reason: Pain Discontinued Ciprofloxacin HCl [Cipro] 500 mg PO DAILY@0800 Discharge Medication List Acetaminophen Tab [Tylenol] 650 mg PO Q6HR PRN tab 07/15/22 [Rx] INSULIN ASPART (NovoLOG) [NovoLOG (formulary)] 6 unit SQ AC-TID each 07/15/22 [Rx] Insulin Detemir (Levemir) [Levemir] 10 unit SQ HS@2130 09/24/22 [History] Delgado Packet 1 packet PO BID@0800,1700 09/24/22 [History] Lidocaine 5% Oint [Xylocaine 5% Oint] 1 applic TOPICAL DAILY PRN 09/24/22 [History] Magic Butt Paste 1 applic TOPICAL TID 09/24/22 [History] Magnesium Hydroxide [Milk of Magnesia Concentrate] 7,200 mg PO Q48H PRN 09/24/22 [History] Na Phos,M-B/Na Phos,Di-Ba [Fleet Adult] 133 ml RECTAL DAILY PRN 09/24/22 [History] bisacodyL [Dulcolax] 10 mg RECTAL DAILY PRN 09/24/22 [History] diphenhydrAMINE [Benadryl] 25 mg PO Q6H PRN 09/24/22 [History] Famotidine [Pepcid] 20 mg PO BID tab 09/30/22 [Rx] Gabapentin 300 mg PO TID@0600,1400,2200 #6 cap 09/30/22 [Rx] HYDROcodone/APAP 5-325MG [[place] 5-325] 1 tab PO Q6H PRN #4 tab 09/30/22 [Rx] Magnesium Oxide [Mag-Ox] 400 mg PO DAILY #0 tab 09/30/22 [Rx] Melatonin 5 mg PO HS tab 09/30/22 [Rx] Tamsulosin [Flomax] 0.4 mg PO PC-BRKFST cap 09/30/22 [Rx] Follow up Appointment(s)/Referral(s): Herbert Lowe MD [Primary Care Provider] - 1-2 days Theresa Campbell [NON-STAFF] - As Needed Altagracia Richardson MD [STAFF PHYSICIAN] - 10/08/22 3:18 pm Ambulatory/Diagnostic Orders: Basic Metabolic Panel [LAB.AMB] Time Frame: 3 Days, Location: None Selected Complete Blood Count w/diff [LAB.AMB] Time Frame: 3 Days, Location: None Selected Activity/Diet/Wound Care/Special Instructions: Continue IV vanco pharmacy to dose for 6 weeks Local wound care to bilateral heel pressure ulcer and also sacrum/coccyx decubitus ulcer with medihoney gel cover with moist gauze and change daily. Wrap right heel with MANNY wrap. Follow up with Dr. Richardson in the wound care center please [phone] Recommend for patient to see ophthalmology for routine eye screening Discharge Disposition: TRANSFER TO SNF/ECF
--- NOTE | 2022-10-03 09:44 | CDI ---
Documentation Clarification Form Date: 10/03/2022 09:32:00 AM From: Kathia Tate Admit Date: 09/24/2022 02:44:00 PM Patient Name: Byron Hobbs Visit Number: [id number] Discharge Date: 10/01/2022 02:00:00 PM ATTENTION: The Clinical Documentation Specialists (CDI) and [facility] Coding Staff appreciate your assistance in clarifying documentation. Please respond to the clarification below the line at the bottom and electronically sign. The CDI & [facility] Coding staff will review the response and follow-up if needed. Please note: Queries are made part of the Legal Health Record. If you have any questions, please contact the author of this message via ITS. Dr. Mathew Savage right foot excisional debridement is documented on 09/26/22. Additional clarification regarding the depth of the tissue excised is requested. History/Risk Factors: DFU and cellulitis bilateral legs, Stage IV decubitus ulcer right heel, Stage 2 decubitus ulcer left heel. Clinical Indicators: Treatment: Debridement of wound, Medihoney gel, Cipro, Vancomycin Please clarify the type of procedure performed: [ ] Excisional debridement (the removal of necrotic, devitalized tissue or slough by means of cutting away of tissue) down to skin. [ ] Excisional debridement down to subcutaneous and fascia [ ] Excisional debridement down to muscle [ ] Excisional debridement down to bone [ ] Other; please specify [ ] Unable to determine Five elements required for accurate and compliant documentation of a debridement: Technique used (e.g., excisional, excised, cutting, brushing, jet lavage etc.) Instrument(s) used (e.g., scalpel, curette, etc.) Nature of the tissue removed (e.g., necrotic, devitalized tissues, non-viable tissue, etc.) Appearance and size of the wound (e.g., down to fresh bleeding tissue, 7cm x 10cm, etc.) Depth of the debridement* (e.g., skin, subcutaneous tissue, fascia, muscle, bone, etc.) MTDD
--- NOTE | 2022-10-08 18:20 | P.PN ---
Subjective Progress Note Date: 10/01/22 Principal diagnosis: Fever and infected right heel pressure ulcer Patient is a 67-year old male with multiple comorbidities and correction resident brought into the hospital concerning for fever tachycardia patient noticed to have a right heel infected pressure ulcer and concern for possible cellulitis. Patient has been evaluated by vascular surgery and did have patience ridement of the right heel wound and cultures on 09/26/2022 On today's evaluation that is 10/01/2022 the patient remains to be afebrile, the patient is currently breathing comfortably on room air denies having any chest pain or shortness of breath or cough no nausea vomiting no abdominal pain or any worsening pain to the right heel area Objective - Vital Signs Vital signs: Vital Signs Temp 97.8 F 10/01/22 07:40 Pulse 70 10/01/22 11:35 Resp 16 10/01/22 11:35 BP 152/69 10/01/22 07:40 Pulse Ox 97 10/01/22 07:40 FiO2 Intake & Output 09/30/22 10/01/22 10/01/22 18:59 06:59 18:59 Intake Total 1000 Output Total 2200 Balance 1000 -2200 Weight 90.718 kg Intake: Intake, IV Titration 500 Amount Vancomycin 1,500 mg In 500 Sodium Chloride 0.9% 500 ml 500 ml @ 167 mls/hr IVPB Q12H [facility] Rx#: [id number] Oral 500 Output: Urine 2200 Other: Voiding Method Indwelling Catheter Indwelling Catheter - Exam GENERAL DESCRIPTION: An elderly male lying in bed in no distress RESPIRATORY SYSTEM: Unlabored breathing , decreased breath sounds at bases HEART: S1 S2 regular rate and rhythm , ABDOMEN: Soft , no tenderness EXTREMITIES: Right heel wound is currently dressed no drainage on the dressing - Labs CBC & Chem 7: 09/28/22 07:21 09/30/22 04:17 Labs: Abnormal Lab Results - Last 24 Hours (Table) 09/30/22 09/30/22 10/01/22 Range/Units 16:49 20:24 06:09 POC Glucose (mg/dL) 128 H 192 H 127 H (70-110) mg/dL 10/01/22 Range/Units 11:35 POC Glucose (mg/dL) 119 H (70-110) mg/dL Microbiology - Last 24 Hours (Table) 09/24/22 13:03 Blood Culture - Final Blood No Growth after 144 hours 09/24/22 13:05 Blood Culture - Final Blood No Growth after 144 hours Assessment and Plan (1) Pressure ulcer of sacral region, stage 3 Status: Acute Code(s): L89.153 - PRESSURE ULCER OF SACRAL REGION, STAGE 3 SNOMED Code(s): 32005809173279282 (2) Stage IV pressure ulcer of right heel Status: Acute Code(s): L89.614 - PRESSURE ULCER OF RIGHT HEEL, STAGE 4 SNOMED Code(s): 01761288695754 Plan: 1patient present to hospital with sepsis in this patient who did have a fever tachycardia elevated white count source likely bilateral heel infected pressure ulcer with secondary cellulitis being a correction resident will need to cover for the resistant gram-positive as well as gram-negative pathogen. 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
--- NOTE | 2022-10-09 09:35 | CDI ---
Documentation Clarification Form Date: 10/03/2022 09:32:00 AM From: Kathia Tate Admit Date: 09/24/2022 02:44:00 PM Patient Name: Byron Hobbs Visit Number: [id number] Discharge Date: 10/01/2022 02:00:00 PM ATTENTION: The Clinical Documentation Specialists (CDI) and [facility] Coding Staff appreciate your assistance in clarifying documentation. Please respond to the clarification below the line at the bottom and electronically sign. The CDI & [facility] Coding staff will review the response and follow-up if needed. Please note: Queries are made part of the Legal Health Record. If you have any questions, please contact the author of this message via ITS. Dr. Mathew Savage right foot excisional debridement is documented on 09/26/22. Additional clarification regarding the depth of the tissue excised is requested. History/Risk Factors: DFU and cellulitis bilateral legs, Stage IV decubitus ulcer right heel, Stage 2 decubitus ulcer left heel. Clinical Indicators: Treatment: Debridement of wound, Medihoney gel, Cipro, Vancomycin Please clarify the type of procedure performed: [ ] Excisional debridement (the removal of necrotic, devitalized tissue or slough by means of cutting away of tissue) down to skin. [ x ] Excisional debridement down to subcutaneous and fascia [ ] Excisional debridement down to muscle [ ] Excisional debridement down to bone [ ] Other; please specify [ ] Unable to determine Five elements required for accurate and compliant documentation of a debridement: Technique used (e.g., excisional, excised, cutting, brushing, jet lavage etc.) Instrument(s) used (e.g., scalpel, curette, etc.) Nature of the tissue removed (e.g., necrotic, devitalized tissues, non-viable tissue, etc.) Appearance and size of the wound (e.g., down to fresh bleeding tissue, 7cm x 10cm, etc.) Depth of the debridement* (e.g., skin, subcutaneous tissue, fascia, muscle, bone, etc.) MTDD
== END 2022-10-01 14:00 | DRG 853 ==
LOC: EC 12:43 → 4SSUR 14:44
PROVIDERS: ADMIT Internal Medicine; ATTEND Internal Medicine
PROC: 0JBQ0ZZ Excision of Right Foot Subcutaneous Tissue and Fascia, Open Approach (ICD-10-PCS; principal; 2022-09-26)
PROC: 02HV33Z Insertion of Infusion Device into Superior Vena Cava, Percutaneous Approach (ICD-10-PCS; 2022-09-27)
DX: A41.02 Sepsis due to Methicillin resistant Staphylococcus aureus (principal); L89.153 Pressure ulcer of sacral region, stage 3; L89.614 Pressure ulcer of right heel, stage 4; L89.893 Pressure ulcer of other site, stage 3; L03.116 Cellulitis of left lower limb; L03.115 Cellulitis of right lower limb; E87.1 Hypo-osmolality and hyponatremia; E87.20 Acidosis, unspecified; E11.628 Type 2 diabetes mellitus with other skin complications; E11.65 Type 2 diabetes mellitus with hyperglycemia; I95.9 Hypotension, unspecified; Z79.4 Long term (current) use of insulin; H53.8 Other visual disturbances; E11.621 Type 2 diabetes mellitus with foot ulcer; E66.9 Obesity, unspecified; Z68.36 Body mass index [BMI] 36.0-36.9, adult; I10 Essential (primary) hypertension; I87.2 Venous insufficiency (chronic) (peripheral); Z20.822 Contact with and (suspected) exposure to COVID-19; L89.312 Pressure ulcer of right buttock, stage 2; L89.322 Pressure ulcer of left buttock, stage 2; L89.622 Pressure ulcer of left heel, stage 2; R33.9 Retention of urine, unspecified; B37.2 Candidiasis of skin and nail; Z79.899 Other long term (current) drug therapy; Z86.14 Personal history of Methicillin resistant Staphylococcus aureus infection; Z79.82 Long term (current) use of aspirin
CPT/HCPCS: 36415; 36573; 71046; 80048; 80053; 80202; 81001; 82565; 83605; 83735; 85025; 85027; 85610; 85652; 85730; 86140; 87040; 87070; 87075; 87077; 87186; 87205; 87635; 93005; 96361; 96365; 99285

== ENCOUNTER 2022-12-18 13:05 | Emergency (ER) | payer MEDICARE, BC ==
[~2022-12-18 13:05] MED LIST: ATROPINE SULFATE 0.1 MG/ML 10ML SYRINGE ONE; CALCIUM CHLORIDE 100 MG/ML 10 ML SYRINGE ONE; EPINEPHrine 10 ML SYRINGE (0.1 MG/ML) ONE; SODIUM BICARB 8.4% 50 ML SYR (1 MEQ/ML) ONE
[2022-12-18 13:10] LABS: Glucose,Whole Blood 166 mg/dL (70-110)
[2022-12-18 13:28] VITALS: BP 90/61; PULSE 0; RESP 0
--- NOTE | 2022-12-18 13:32 | ED ---
CPR HPI - General Chief Complaint: Cardiac Arrest/CPR Stated Complaint: CPR Time Seen by Provider: 12/18/22 13:25 Source: EMS Mode of arrival: EMS - History of Present Illness Initial Comments: Patient presents to the emergency department in cardiac arrest with CPR in progress. Patient doesn't provide any further information. No one else is in attendance. - Related Data Home Medications Medication Instructions Recorded Confirmed Insulin Detemir (Levemir) [Levemir] 10 unit SQ HS@2130 09/24/22 09/24/22 Delgado Packet 1 packet PO BID@0800,1700 09/24/22 09/24/22 Lidocaine 5% Oint [Xylocaine 5% 1 applic TOPICAL DAILY PRN 09/24/22 09/24/22 Oint] Magic Butt Paste 1 applic TOPICAL TID 09/24/22 09/24/22 Magnesium Hydroxide [Milk of 7,200 mg PO Q48H PRN 09/24/22 09/24/22 Magnesia Concentrate] Na Phos,M-B/Na Phos,Di-Ba [Fleet 133 ml RECTAL DAILY PRN 09/24/22 09/24/22 Adult] bisacodyL [Dulcolax] 10 mg RECTAL DAILY PRN 09/24/22 09/24/22 diphenhydrAMINE [Benadryl] 25 mg PO Q6H PRN 09/24/22 09/24/22 Previous Rx's Medication Instructions Recorded Acetaminophen Tab [Tylenol] 650 mg PO Q6HR PRN tab 07/15/22 INSULIN ASPART (NovoLOG) [NovoLOG 6 unit SQ AC-TID each 07/15/22 (formulary)] Famotidine [Pepcid] 20 mg PO BID tab 09/30/22 Gabapentin 300 mg PO TID@0600,1400,2200 #6 cap 09/30/22 HYDROcodone/APAP 5-325MG [[place] 1 tab PO Q6H PRN #4 tab 09/30/22 5-325] Magnesium Oxide [Mag-Ox] 400 mg PO DAILY #0 tab 09/30/22 Melatonin 5 mg PO HS tab 09/30/22 Tamsulosin [Flomax] 0.4 mg PO PC-BRKFST cap 09/30/22 Allergies Allergy/AdvReac Type Severity Reaction Status Date / Time No Known Allergies Allergy Verified 09/24/22 14:15 Review of Systems ROS Statement: Those systems with pertinent positive or pertinent negative responses have been documented in the HPI. ROS Other: All systems not noted in ROS Statement are negative. Past Medical History Past Medical History: Hypertension Additional Past Medical History / Comment(s): borderline cholesterol History of Any Multi-Drug Resistant Organisms: MRSA Date of last positivie culture/infection: 09/26/22 MDRO Source:: Right Foot Past Surgical History: Orthopedic Surgery Additional Past Surgical History / Comment(s): hip replacement left, cataracts, surgery as a child right leg Past Psychological History: No Psychological Hx Reported Smoking Status: Never smoker Past Alcohol Use History: None Reported Past Drug Use History: None Reported - Past Family History family Additional Family Medical History / Comment(s): No family hx of diabetes General Exam Limitations: altered mental status General appearance: in distress Head exam: Present: atraumatic Pupils: Present: irregular Neck exam: Absent: normal inspection Respiratory exam: Absent: normal lung sounds bilaterally Cardiovascular Exam: Absent: regular rate, normal rhythm GI/Abdominal exam: Absent: distended Extremities exam: Absent: tenderness Back exam: Absent: tenderness Course Vital Signs 12/18/22 13:25 Pulse Rate 0 L Respiratory 0 L Rate Blood Pressure 90/61 O2 Sat by Pulse 65 L Oximetry Medical Decision Making - Medical Decision Making Patient presented to the emerge department in cardiopulmonary arrest. I obtained history from EMS as the patient was unable to provide any further information. I directed staff To continue CPR. Patient is placed on tire inspector, interpreted by me as asystole. Patient was administered IV epinephrine. I also ordered IV atropine and IV glucose. An Accu-Chek was interpreted by me as normal. We were unable to get the patient into a stable rhythm and the patient was pronounced . I did have a discussion with the electromedical equipment repairer. - Lab Data Lab Results 12/18/22 Range/Units 13:08 POC Glucose (mg/dL) 166 H (70-110) mg/dL POC Glu Relationship Associate ID Westley Herlinda Disposition Clinical Impression: Cardiac arrest Disposition: Condition: Critical Is patient prescribed a controlled substance at d/c from ED?: No Referrals: Herbert Lowe MD [Primary Care Provider] - 1-2 days Preliminary Cause of : cardiac arrest
== END 2022-12-18 15:53 | disposition expired ==
LOC: EC 13:05
DX: I46.9 Cardiac arrest, cause unspecified (principal); I10 Essential (primary) hypertension; Z79.899 Other long term (current) drug therapy
CPT/HCPCS: 36415; 99285